=== PATIENT | female | born 1965 | race Caucasian/White ===

== ENCOUNTER 2023-04-13 08:10 | Outpatient (OUT) | payer OTHER, SELFPAY ==
[2023-04-13 08:31] LABS: Basophils Absolute Auto 0.1 10^3/uL (0.0-0.1); Basophils Percent Auto 0.9 % (0.2-2.0); Eosinophils Absolute Auto 0.2 10^3/uL (0.0-0.7); Eosinophils Percent Auto 1.9 % (0.9-7.0); Hematocrit 41.9 % (36.0-48.0); Hemoglobin 13.4 g/dL (12.0-16.0); Immature Granulocytes Abs Auto 0.03 10^3/uL (0.00-0.03); Immature Granulocytes Pct Auto 0.4 % (0.0-0.5); Lymphocytes Absolute Auto 2.3 10^3/uL (1.2-3.8); Lymphocytes Percent Auto 29.2 % (20.5-60.0); Mean Corpuscular Hemoglobin 27.9 pg (26.7-34.0); Mean Corpuscular Volume 87.1 fL (81.0-99.0); Mean Platelet Volume 9.8 fL (9.5-13.5); Monocytes Absolute Auto 0.4 10^3/uL (0.3-0.8); Monocytes Percent Auto 5.6 % (1.7-12.0); Neutrophils Absolute Auto 4.9 10^3/uL (1.4-6.5); Platelet Count 242 10^3/uL (150-450); Red Blood Count 4.81 10^6/uL (4.20-5.40); Red Cell Distribution Width 13.5 % (11.0-15.0); White Blood Count 7.9 10^3/uL (4.0-11.0)
[2023-04-13 09:07] LABS: Estimated Average Glucose 117 mg/dL; Glycohemoglobin A1C 5.7 % (4.5-6.2)
[2023-04-13 10:04] LABS: Alanine Aminotransferase 16 U/L (14-59); Albumin Globulin Ratio 0.9; Albumin Level 3.8 g/dL (3.4-5.0); Alkaline Phosphatase 130 U/L (46-116); Anion Gap 13.8; Aspartate Amino Transferase 11 U/L (15-37); BUN Creatinine Ratio 16.5; Bilirubin Total 0.4 mg/dL (0.2-1.0); Calcium 9.4 mg/dL (8.5-10.1); Carbon Dioxide 26.2 mmol/L (21.0-32.0); Chloride 105 mmol/L (98-107); Chol HDL Ratio 3.8; Cholesterol 165 mg/dL (<=200); Estimated GFR (African America >60 (>=60); Estimated GFR (Non-African Ame >60 (>=60); Free T3 2.77 pg/mL (2.18-3.98); Glucose 105 mg/dL (74-106); HDL Cholesterol 44 mg/dL (40-60); Sodium 141 mmol/L (136-145); Total Protein 7.8 g/dL (6.4-8.2); Triglycerides 186 mg/dL (<=150); VLDL CHOLESTEROL 37.2 mg/dL
[2023-04-15 12:08] LABS: Insulin 14.7 uIU/mL (2.6-24.9)
== END 2023-04-13 08:11 | disposition home or self-care (01) ==
LOC: LAB 08:13
PROVIDERS: PCP Family Medicine; Visit Provider Family Medicine
DX: Z00.00 Encounter for general adult medical examination without abnormal findings (principal); R73.09 Other abnormal glucose; Z12.12 Encounter for screening for malignant neoplasm of rectum; D64.9 Anemia, unspecified; E55.9 Vitamin D deficiency, unspecified
CPT/HCPCS: 36415; 80053; 80061; 83036; 83525; 83540; 84436; 84443; 84481; 85025

== ENCOUNTER 2023-04-23 15:41 | Outpatient (OUT) | payer OTHER, SELFPAY ==
--- NOTE | 2023-04-23 15:44 | MM_ITS ---
Patient Name: LORRAINE WILSON MR#: [id number] : 1965 Exam Date: 04/23/2023 Ordering Doctor: DR Bonilla Hankins . RADIOLOGY REPORT PROCEDURE: MM TOMOSYNTHESIS SCREENING BI COMPARISON: MG MAMM SCREEN 3D GOOD CAD, 04/13/2021. MG MAMM SCREEN 3D GOOD CAD, 04/17/2022. INDICATIONS: screening mamm Calculator Name NCI Breast Cancer Risk Assessment Tool 5 Year Breast Cancer Risk 1.10% Lifetime Breast Cancer Risk 6.30% Personal Breast Cancer No Personal Ovarian Cancer No Treatments None Family Cancers Grandfather-maternal with esophageal cancer at age 83. LOCATION: [facility] BREAST COMPOSITION: Heterogeneously dense,which may obscure small masses. FINDINGS: DIAGNOSTIC CATEGORY 1--NEGATIVE. NO CHANGE FROM COMPARISON ASSESSMENT. Scattered benign-appearing nodules are present. Scattered benign-appearing calcifications are present. Scattered benign-appearing lymph nodes are present. RIGHT BREAST: No significant suspicious finding. LEFT BREAST: No significant suspicious finding. RECOMMENDATIONS: ROUTINE MAMMOGRAM AND CLINICAL EVALUATION IN 12 MONTHS. PLEASE NOTE: A NORMAL MAMMOGRAM DOES NOT EXCLUDE THE POSSIBILITY OF BREAST CANCER. A CLINICALLY SUSPICIOUS PALPABLE LUMP SHOULD BE BIOPSIED. Dictated by: Yonatan Vick MD on 04/24/2023 at 09:26 Approved by: Yonatan Vick MD on 04/24/2023 at 09:28
--- OUTSIDE RECORDS SUMMARY | 2023-04-23 16:06 | XMS_ITS | CCD ---
Author Name Unknown Address [address] [place] [address] Organization [facility] Care Team Providers Care Wrist Closer Name Role Phone Jorge Hankins Primary Care Provider VERONICA LEONG Attending Unavailable RAULYJORGE Primary Care Unavailable VERONICA LEONG Admitting Unavailable HOY ., DR PATEL Attending Unavailable HOY ., DR PATEL Admitting Unavailable HOY ., DR PATEL Primary Care Unavailable HOY ., DR PATEL Consulting Unavailable HOY ., DR PATEL Attending Unavailable HOY ., DR PATEL Admitting Unavailable HOY ., DR PATEL Primary Care Unavailable HOY ., DR PATEL Admitting Unavailable HOY ., DR PATEL Primary Care Unavailable HOY ., DR PATEL Consulting Unavailable HOY ., DR PATEL Attending Unavailable WEST, DR JAZMINE Raphael Consulting Unavailable HOY ., DR PATEL Admitting Unavailable HOY ., DR PATEL Primary Care Unavailable HOY ., DR PATEL Consulting Unavailable HOY ., DR PATEL Attending Unavailable WEST, DR JAZMINE Raphael Consulting Unavailable ELIEZER GUEVARA Admitting Unavailable ELIEZER GUEVARA Attending Unavailable WEST, DR JAZMINE Raphael Consulting Unavailable HOY ., DR PATEL Primary Care Unavailable ELIEZER GUEVARA Consulting Unavailable ANURAG, NINFA Referring Unavailable ANURAG, NINFA Attending Unavailable Allergies Allergy Classification Reported Allergen(s) Allergy Type Date of Onset Reaction(s) Facility (4 sources) Cephalexin; Translations: [Unknown] Drug Allergy 5 [facility] (3 sources) Ciprofloxacin; Translations: [CIPROFLOXACIN] Drug Allergy 4 [facility] (1 source) Cephalexin Drug Allergy 5 [facility] [place] [facility] (1 source) Ciprofloxacin Drug Allergy 5 [facility] (1 source) Acetaminophen / oxyCODONE; Translations: [OXYCODONE-ACETAM INOPHEN] Drug Allergy 4 [facility] (1 source) RCA-MUOSPDMLE-BA- ACETAMINOPHEN; Translations: [CGN-FEWRONLGS-QN -ACETAMINOPHEN] Propensity to adverse reactions to drug (disorder) 5 [facility] (1 source) RXHVFOMYU-APY-GZ- ACETAMINOPHEN; Translations: [CPHBWCFPQ-NIH-JW -ACETAMINOPHEN] Propensity to adverse reactions to drug (disorder) 5 [facility] Medications Current Medications Medication Drug Class(es) Dates Sig (Normalized) Sig (Original) acetaminophen 500 mg oral tablet (1 source) Start: 10-09-2019 End: 10-29-2019 take 2 tablets by mouth every eight hours as needed acetaminophen (Tylenol Extra Strength) 500 MG tablet Take 2 (two) tablets (1,000 mg total) by mouth every 8 (eight) hours as needed for pain . 20 tablet 0 10/09/2019 10/29/2019 Active 12 hr buPROPion hydrochloride 200 mg extended release oral tablet (2 sources) Aminoketone take 1 tablet by mouth twice daily buPROPion (WELLBUTRIN SR) 200 MG 12 hr tablet Take 200 mg by mouth 2 (two) times a day . 0 Active ibuprofen 600 mg oral tablet (3 sources) Nonsteroidal Anti-inflammatory Drug Start: 10-09-2019 End: 10-24-2019 take 1 tablet by mouth every six hours as needed ibuprofen (ADVIL,MOTRIN) 600 MG tablet Take 1 (one) tablet (600 mg total) by mouth every 6 (six) hours as needed for pain . 15 tablet 0 10/09/2019 10/24/2019 Active levothyroxine sodium 0.15 mg oral tablet (2 sources) l-Thyroxine take 1 tablet by mouth once daily levothyroxine (Euthyrox) 150 MCG tablet Take 150 mcg by mouth once daily . 0 Active lisinopril 10 mg oral tablet (2 sources) Angiotensin Converting Enzyme Inhibitor lisinopriL (PRINIVIL,ZESTRIL) 10 MG tablet Take by mouth daily . 0 Active simvastatin 20 mg oral tablet (2 sources) HMG-CoA Reductase Inhibitor take 1 tablet by mouth once daily simvastatin (ZOCOR) 20 MG tablet Take 20 mg by mouth nightly . 0 Active topiramate 100 mg oral tablet (2 sources) take 1 tablet by mouth twice daily topiramate (TOPAMAX) 100 MG tablet Take 100 mg by mouth 2 (two) times a day . 0 Active Completed/Discontinued Medications Medication Drug Class(es) Dates Sig (Normalized) Sig (Original) acetaminophen 325 mg / oxyCODONE hydrochloride 5 mg oral tablet (3 sources) Opioid Agonist Start: 10-09-2019 End: 10-09-2019 oxyCODONE-acetamin ophen (PERCOCET) 5-325 mg per tablet 1 tablet take 1 tablet by martine th every six hours as needed oxyCODONE-acetaminophen (PERCOCET) 5-325 mg per tablet Take 1 tablet by mouth every 6 (six) hours as needed for pain . . 0 Active Problems Problem Classification Problem Date Documented Date Episodic/Chronic Abdominal pain (4 sources) Right upper quadrant pain; Translations: [RIGHT UPPER QUADRANT PAIN] Onset: 04-25-2022 Episodic Other connective tissue disease (4 sources) Plantar fascial fibromatosis; Translations: [PLANTAR FASCIAL FIBROMATOSIS] Onset: 04-19-2022 Episodic Other non-traumatic joint disorders (2 sources) Pain in left wrist; Translations: [Pain in left wrist] Onset: 09-20-2022 Episodic Other screening for suspected conditions (not mental disorders or infectious disease) (4 sources) Encounter for screening mammogram for malignant neoplasm of breast; Translations: [ENC SCR MAMMO MALIG NEOPLASM BREAST] Onset: 04-17-2022 Episodic Residual codes; unclassified (1 source) Family history of malignant neoplasm of digestive organs; Translations: [FAM HX MALIG NEOPLASM DIGESTIV ORGN] Onset: 04-22-2022 Episodic Spondylosis; intervertebral disc disorders; other back problems (4 sources) Unspecified thoracic, thoracolumbar and lumbosacral intervertebral disc disorder; Translations: [UNS THORACIC TL AND LS IV DISC D/O] Onset: 12-15-2021 Chronic Unclassified (1 source) Sprain of left ankle; Translations: [Sprain of left ankle, unspecified ligament, initial encounter] Results Test Name Value Interpretation Reference Range Facility Follow-Upon 09-20-2022 Follow-Up [id number] Tamara Saleh 1965 F Date Provider Department Center 09/20/2022 NINFA HERRERA MP ORTHO MPORTHO No family history on file Level of Service:70768 [place] OFFICE/OUTPATIENT ESTABLISHED LOW MDM 20-29 MIN (GC) Reason for Visit and Comments: Pain [136] Follow-up [328067] Normal [facility] AMYLASEon 04-25-2022 Amylase [Catalytic activity/Vol] 46 U/L Normal 25-115 [facility] Comment on above: Performed By: #### L IPA, KWADWO, LIPID ####[facility] [address] [place] [address]Dr. Charletteleticia Holly CBC AUTO DIFFon 04-25-2022 BASO # 0.1 103/ul Normal 0.0-0.1 [facility] Comment on above: Performed By: #### C BC ####[facility] [address] [place], [place] [address]Dr. Betina Holly Basophils/100 WBC (Bld) 0.7 % Normal 0.2-2.0 [facility] Comment on above: Performed By: #### C BC ####[facility] [address] [place], [place] [address]Dr. Betina Holly EO # 0.2 103/ul Normal 0.0-0.7 [facility] Comment on above: Performed By: #### C BC ####[facility] [address] [place], [place] [address]Dr. Betina Holly Eosinophils/100 WBC (Bld) 2.0 % Normal 0.9-7.0 [facility] Comment on above: Performed By: #### C BC ####[facility] [address] [place], [place] [address]Dr. Betina Holly Erythrocyte distribution width (RBC) [Ratio] 13.2 % Normal 11.0-15.0 [facility] Comment on above: Performed By: #### C BC ####[facility] [address] [place], [place] [address]Dr. Betina Holly Hematocrit (Bld) [Volume fraction] 42.6 % Normal 36.0-48.0 [facility] Comment on above: Performed By: #### C BC ####[facility] [address] [place] [id number]. Betina Holly Hemoglobin (Bld) [Mass/Vol] 13.6 g/dL Normal 12.0-16.0 [facility] Comment on above: Performed By: #### C BC ####[facility] [address] [place] [id number]. Betina Holly IG # 0.08 10e3/ul Critically high 0.00-0.03 [facility] Comment on above: Performed By: #### C BC ####[facility] [address] [place] [address]Dr. Betina Holly IG % 0.9 % Critically high 0.0-0.[address] [facility] Comment on above: Performed By: #### C BC ####[facility] [address] [place], [place] [address]Dr. Betina Holly LYMPH # 2.5 103/ul Normal 1.2-3.8 [facility] Comment on above: Performed By: #### C BC ####[facility] [address] [place] [address]Dr. Betina Holly Lymphocytes/100 WBC (Bld) 26.8 % Normal 20.5-60.0 [facility] Comment on above: Performed By: #### C BC ####[facility] [address] [place] [address]Dr. Betina Holly MANUAL DIFF REQ NO Normal [facility] Comment on above: Performed By: #### C BC ####[facility] [address] [place], [place] [id number]. Betina Holly MCH (RBC) [Entitic mass] 27.4 pg Normal 26.7-34.0 [facility] Comment on above: Performed By: #### C BC ####[facility] [address] [place] [address]Dr. Betina Holly MCHC (RBC) [Mass/Vol] 31.9 g/dL Normal 29.9-35.2 [facility] Comment on above: Performed By: #### C BC ####[facility] [address] [place] [phone]. Betina Holly MCV (RBC) [Entitic vol] 85.9 fL Normal 81.0-99.0 [facility] Comment on above: Performed By: #### C BC ####[facility] [address] [place] [phone]. Betina Holly MONO # 0.5 103/ul Normal 0.3-0.8 [facility] Comment on above: Performed By: #### C BC ####[facility] [address] [place], [place] [address]Dr. Betina Holly Monocytes/100 WBC (Bld) 5.7 % Normal 1.7-12.0 [facility] Comment on above: Performed By: #### C BC ####[facility] [address] [place], [place] [address]Dr. Betina Holly NEUT # 5.9 103/ul Normal 1.4-6.5 [facility] Comment on above: Performed By: #### C BC ####[facility] [address] [place], [place] [address]Dr. Betina Holly Neutrophils/100 WBC (Bld) 63.9 % Normal 43.0-75.0 [facility] Comment on above: Performed By: #### C BC ####[facility] [address] [place], [place] [address]Dr. Betina Holly Platelet mean volume (Bld) [Entitic vol] 9.8 fL Normal 9.5-13.5 [facility] Comment on above: Performed By: #### C BC ####[facility] [address] [place], [place] [address]Dr. Betina Holly PLT 273 103/ul Normal 150-450 [facility] Comment on above: Performed By: #### C BC ####[facility] [address] [place], [place] [address]Dr. Betina Holly RBC 4.96 106/ul Normal 4.20-5.40 [facility] Comment on above: Performed By: #### C BC ####[facility] [address] [place], [place] [address]Uj. Betina Holly WBC 9.2 103/ul Normal 4.0-11.0 [facility] Comment on above: Performed By: #### C BC ####[facility] [address] [place], [place] [address]Mm. Betina Holly LIPASEon 04-25-2022 Lipase [Catalytic activity/Vol] 71.0 U/L Critically low 73.0-393.0 [facility] Comment on above: Performed By: #### L KWADWO CARBAJAL, LIPID ####[facility] [address] [place] [phone]. Betina Holly LIPID PROFILEon 04-25-2022 CHOL-HDL RATIO NORM SEE BELOW Normal [facility] Comment on above: Result Comment: 3.3 - 4.4 LOW RISK 4.4 - 7.1 AVERAGE RISK 7.1 - 11.0 MODERATE RISK >11.0 HIGH RISK Performed By: #### L KWADWO CARBAJAL, LIPID ####[facility] [address] [place] [phone]. Betina Holly Cholesterol [Mass/Vol] 174 mg/dL Normal <=200 [facility] Comment on above: Performed By: #### L KWADWO CARBAJAL, LIPID ####[facility] [address] [place] [phone]. Betina Holly Cholesterol in HDL [Mass/Vol] 48 mg/dL Normal 40-60 [facility] Comment on above: Performed By: #### L KWADWO CARBAJAL, LIPID ####[facility] [address] [place] [phone]. Betina Holly Cholesterol in LDL [Mass/Vol] 101.2 mg/dL Normal [facility] Comment on above: Performed By: #### L KWADWO CARBAJAL, LIPID ####[facility] [address] [place] [phone]. Betina Holly Cholesterol.total/C holesterol in HDL [Mass ratio] 3.6 {ratio} Normal [facility] Comment on above: Performed By: #### L KWADWO CARBAJAL, LIPID ####[facility] [address] [place], [place] [address]Dg. Betina Holly HDL NORMAL > or = 60 mg/dl - LO W CARDIOVASCULAR RISK <40 mg/dl - HIGH CARDIOVASCULAR RISK Normal [facility] Comment on above: Performed By: #### L KWADWO CARBAJAL, LIPID ####[facility] [address] [place], [place] [address]Rg. Betina Holly LDL CALC NORMAL SEE BELOW Normal [facility] Comment on above: Result Comment: <100 mg/dl OPTIMAL 100 - 129 mg/dl NEAR OR ABOVE OPTIMAL 130 - 159 mg/dl BORDERLINE HIGH 160 - 189 mg/dl HIGH >190 mg/dl VERY HIGH Performed By: #### L KWADWO CARBAJAL, LIPID ####[facility] [address] [place] [phone]. Betina Holly Triglyceride [Mass/Vol] 124 mg/dL Normal <=150 [facility] Comment on above: Performed By: #### L KWADWO CARBAJAL, LIPID ####[facility] [address] [place] [phone]. Betina Holly VLDL CALC 24.8 mg/dL Normal [facility] Comment on above: Performed By: #### L KWADWO CARBAJAL, LIPID ####[facility] [address] [place] [phone]. Betina Holly US SINGLE QUAD RT UPPERon US SINGLE QUAD RT UPPER EXAMINATION: US SINGLE QUAD RT UPPER HISTORY: Right upper quadrant pain COMPARISON: No relevant comparison available. FINDINGS: The liver is normal in size, contour and echotexture with no focal mass. The liver measures 16.2 cm in length. Hepatopedal flow in the main portal vein with velocity of 36 cm/s The gallbladder is normal in size. The wall measures 2 mm, normal. Negative sonographic Leal sign. No cholelithiasis. The common bile duct measures 2.6 mm, normal. The visualized pancreas is normal The right kidney measures 10.8 x 5.0 x 5.0 cm. The cortex appears mildly thinned measuring 6 to 10 mm thick IMPRESSION: No acute abnormality Electronically authenticated by: JAZMINE TILLEY Date: 2022-04-25 11:05 Normal [facility] XR FOOT GOOD MIN 3 VIEWSon XR FOOT GOOD MIN 3 VIEWS EXAMINATION: XR FOOT GOOD MIN 3 VIEWS HISTORY: Pain in both feet COMPARISON: No relevant comparison available. FINDINGS: RIGHT FINDINGS: BONES: No acute fracture or dislocation. Moderate plantar enthesopathic spurring. Degenerative changes with joint space narrowing and marginal osteophyte formation most significant at the first metatarsal-phalangeal joint SOFT TISSUES: Negative. No visible soft tissue swelling. OTHER: Negative. LEFT FINDINGS: BONES: No acute fracture or dislocation. Moderate calcaneal enthesopathic spurring. Degenerative changes with joint space narrowing and marginal osteophyte formation most significant at the first metatarsal-phalangeal joint SOFT TISSUES: Negative. No visible soft tissue swelling. OTHER: Negative. IMPRESSION: RIGHT CONCLUSION: Degenerative changes most significant first metatarsal-phalangeal joint LEFT CONCLUSION: Degenerative changes most significant first metatarsal-phalangeal joint Electronically authenticated by: JAZMINE TILLEY Date: 2022-04-19 16:19 Normal [facility] MAMM SCREEN 3D GOOD CADon 04-17-2022 MG MAMM SCREEN 3D GOOD CAD Patient: LORRAINE SALEH Exam Date: 04/17/2022 : 1965 Gender:F Ordering : DR JORGE HANKINS . Admission #: [id number] Family : Order #: [id number] CLICK HERE TO VIEW EXAM RADIOLOGY REPORT PROCEDURE: MAMMOGRAM SCREENING 3D BILATERAL CAD COMPARISON: MG MAMM SCREEN GOOD W CAD, 03/29/2020. MG MAMM SCREEN 3D GOOD CAD, 04/13/2021. INDICATIONS: Screening mammography Calculator Name NCI Breast Cancer Risk Assessment Tool 5 Year Breast Cancer Risk 1.00% Lifetime Breast Cancer Risk 6.50% Personal Breast Cancer No Personal Ovarian Cancer No Treatments None Family Cancers Grandfather-maternal with esophageal cancer at age 83. LOCATION: [facility] BREAST COMPOSITION: Heterogeneously dense,which may obscure small masses. FINDINGS: DIAGNOSTIC CATEGORY 2--BENIGN FINDING. NO CHANGE FROM COMPARISON. Scattered benign-appearing nodules are present. Scattered benign-appearing calcifications are present. Scattered benign-appearing lymph nodes are present. RIGHT BREAST: No significant suspicious finding. LEFT BREAST: No significant suspicious finding. RECOMMENDATIONS: ROUTINE MAMMOGRAM AND CLINICAL EVALUATION IN 12 MONTHS. PLEASE NOTE: A NORMAL MAMMOGRAM DOES NOT EXCLUDE THE POSSIBILITY OF BREAST CANCER. A CLINICALLY SUSPICIOUS PALPABLE LUMP SHOULD BE BIOPSIED. Dictated by: Jazmine Tilley MD on 04/18/2022 at 08:30 Approved by: Jazmine Tilley MD on 04/18/2022 at 08:33 Normal [facility] INSULINon 04-02-2022 Insulin 13.7 uIU/mL Normal 2.6-24.9 [facility] Comment on above: Performed By: #### I NSULIN ####[facility] [address] [place] [address]Dr. Betina Holly CBC AUTO DIFFon 03-31-2022 BASO # 0.1 103/ul Normal 0.0-0.1 [facility] Comment on above: Performed By: #### C BC #### [facility] [address] [place] [address] Dr. Betina Holly Basophils/100 WBC (Bld) 0.7 % Normal 0.2-2.0 [facility] Comment on above: Performed By: #### C BC #### [facility] [address] [place] [address] Dr. Betina Holly EO # 0.1 103/ul Normal 0.0-0.7 [facility] Comment on above: Performed By: #### C BC #### [facility] [address] [place] [address] Dr. Betina Holly Eosinophils/100 WBC (Bld) 1.7 % Normal 0.9-7.0 [facility] Comment on above: Performed By: #### C BC #### [facility] [address] [place] [address] Dr. Betina Holly Erythrocyte distribution width (RBC) [Ratio] 13.3 % Normal 11.0-15.0 [facility] Comment on above: Performed By: #### C BC #### [facility] [address] [place] [address] Dr. Betina Holly Hematocrit (Bld) [Volume fraction] 40.5 % Normal 36.0-48.0 [facility] Comment on above: Performed By: #### C BC #### [facility] [address] [place] [address] Dr. Betina Holly Hemoglobin (Bld) [Mass/Vol] 13.1 g/dL Normal 12.0-16.0 [facility] Comment on above: Performed By: #### C BC #### [facility] [address] [place] [address] Dr. Betina Holly IG # 0.05 10e3/ul Critically high 0.00-0.03 [facility] Comment on above: Performed By: #### C BC #### [facility] [address] [place] [address] Dr. Betina Holly IG % 0.6 % Critically high 0.0-0.5 [facility] Comment on above: Performed By: #### C BC #### [facility] [address] [place] [address] Dr. Betina Holly LYMPH # 2.2 103/ul Normal 1.2-3.8 [facility] Comment on above: Performed By: #### C BC #### [facility] [address] [place] [address] Dr. Betina Holly Lymphocytes/100 WBC (Bld) 27.2 % Normal 20.5-60.0 [facility] Comment on above: Performed By: #### C BC #### [facility] [address] [place] [address] Dr. Betina Holly MANUAL DIFF REQ NO Normal [facility] Comment on above: Performed By: #### C BC #### [facility] [address] [place] [address] Dr. Betina Holly MCH (RBC) [Entitic mass] 28.1 pg Normal 26.7-34.0 [facility] Comment on above: Performed By: #### C BC #### [facility] [address] [place] [address] Dr. Betina Holly MCHC (RBC) [Mass/Vol] 32.3 g/dL Normal 29.9-35.2 [facility] Comment on above: Performed By: #### C BC #### [facility] [address] [place] [address] Dr. Betina Holly MCV (RBC) [Entitic vol] 86.7 fL Normal 81.0-99.0 [facility] Comment on above: Performed By: #### C BC #### [facility] [address] [place] [address] Dr. Betina Holly MONO # 0.5 103/ul Normal 0.3-0.8 [facility] Comment on above: Performed By: #### C BC #### [facility] [address] [place] [address] Dr. Betina Holly Monocytes/100 WBC (Bld) 6.0 % Normal 1.7-12.0 [facility] Comment on above: Performed By: #### C BC #### [facility] [address] [place] [address] Dr. Betina Holly NEUT # 5.2 103/ul Normal 1.4-6.5 [facility] Comment on above: Performed By: #### C BC #### [facility] [address] [place] [address] Dr. Betina Holly Neutrophils/100 WBC (Bld) 63.8 % Normal 43.0-75.0 [facility] Comment on above: Performed By: #### C BC #### [facility] [address] [place] [address] Dr. Betina Holly Platelet mean volume (Bld) [Entitic vol] 9.8 fL Normal 9.5-13.5 [facility] Comment on above: Performed By: #### C BC #### [facility] [address] [place] [address] Dr. Betina Holly PLT 226 103/ul Normal 150-450 [facility] Comment on above: Performed By: #### C BC #### [facility] [address] [place] [address] Dr. Betina Holly RBC 4.67 106/ul Normal 4.20-5.40 [facility] Comment on above: Performed By: #### C BC #### [facility] [address] [place] [address] Dr. Betina Holly WBC 8.2 103/ul Normal 4.0-11.0 [facility] Comment on above: Performed By: #### C BC #### [facility] [address] [place] [address] Dr. Betina Holly FREE THYROXINE INDEX T7on FTI 2.18 Normal 1.30-4.50 [facility] Comment on above: Performed By: #### C MP, LIPID, TSH, T7 #### [facility] [address] [place] [address] Dr. Betina Holly T3U 37.0 % Normal 30.0-39.0 [facility] Comment on above: Performed By: #### C MP, LIPID, TSH, T7 #### [facility] [address] [place] [address] Dr. Betina Holly T4 [Mass/Vol] 5.90 ug/dL Normal 4.80-13.90 [facility] Comment on above: Performed By: #### C MP, LIPID, TSH, T7 #### [facility] [address] [place] [address] Dr. Betina Holly GLYCOHEMOGLOBIN A1Con 2022 ADA RECOMMENDATION SEE BELOW Normal [facility] Comment on above: Result Comment: ADA RECOMMENDED LIMIT 4.0 - 6.0 ADA THERAPEUTIC TARGET < 7.0 ACTION SUGGESTED > 7.0 Performed By: #### A 1C #### [facility] [address] [place] [address] Dr. Betina Holly Glucose [Mass/Vol] 114 mg/dL Normal [facility] Comment on above: Performed By: #### A 1C #### [facility] [address] [place] [address] Dr. Betina Holly HbA1c (Bld) [Mass fraction] 5.6 % Normal 4.5-6.2 [facility] Comment on above: Performed By: #### A 1C #### [facility] [address] [place] [address] Dr. Betina Holly IRONon 03-31-2022 Iron [Mass/Vol] 72.0 ug/dL Normal 50.0-170.0 [facility] Comment on above: Performed By: #### I MARCE #### [facility] [address] [place], [place] [id number] Dr. Betina Holly LIPID PROFILEon 03-31-2022 CHOL-HDL RATIO NORM SEE BELOW Normal [facility] Comment on above: Result Comment: 3.3 - 4.4 LOW RISK 4.4 - 7.1 AVERAGE RISK 7.1 - 11.0 MODERATE RISK >11.0 HIGH RISK Performed By: #### C MP, LIPID, TSH, T7 #### [place] [facility] [address] [place] [address] Dr. Betina Holly Cholesterol [Mass/Vol] 167 mg/dL Normal <=200 [facility] Comment on above: Performed By: #### C MP, LIPID, TSH, T7 #### [facility] [address] [place] [address] Dr. Betina Holly Cholesterol in HDL [Mass/Vol] 43 mg/dL Normal 40-60 [facility] Comment on above: Performed By: #### C MP, LIPID, TSH, T7 #### [facility] [address] [place] [address] Dr. Betina Holly Cholesterol in LDL [Mass/Vol] 93.4 mg/dL Normal [facility] Comment on above: Performed By: #### C MP, LIPID, TSH, T7 #### [facility] [address] [place] [address] Dr. Betina Holly Cholesterol.total/C holesterol in HDL [Mass ratio] 3.9 {ratio} Normal [facility] Comment on above: Performed By: #### C MP, LIPID, TSH, T7 #### [facility] [address] [place] [address] Dr. Betina Holly HDL NORMAL > or = 60 mg/dl - LO W CARDIOVASCULAR RISK <40 mg/dl - HIGH CARDIOVASCULAR RISK Normal [facility] Comment on above: Performed By: #### C MP, LIPID, TSH, T7 #### [facility] [address] [place] [address] Dr. Betina Holly LDL CALC NORMAL SEE BELOW Normal [facility] Comment on above: Result Comment: <100 mg/dl OPTIMAL 100 - 129 mg/dl NEAR OR ABOVE OPTIMAL 130 - 159 mg/dl BORDERLINE HIGH 160 - 189 mg/dl HIGH >190 mg/dl VERY HIGH Performed By: #### C MP, LIPID, TSH, T7 #### [facility] [address] [address] [address] Betina Holly Triglyceride [Mass/Vol] 153 mg/dL Critically high <=150 [facility] Comment on above: Performed By: #### C MP, LIPID, TSH, T7 #### [facility] [address] [address] [address] Betina Holly VLDL CALC 30.6 mg/dL Normal [facility] Comment on above: Performed By: #### C MP, LIPID, TSH, T7 #### [facility] [address] [address] [address] Betina Holly PROF 14(COMP METB)on 023 Albumin [Mass/Vol] 3.9 g/dL Normal 3.4-5.0 [facility] Comment on above: Performed By: #### C MP, LIPID, TSH, T7 #### [facility] [address] [address] [address] Betina Holly Albumin/Globulin [Mass ratio] 1.1 {ratio} Normal [facility] Comment on above: Performed By: #### C MP, LIPID, TSH, T7 #### [facility] [address] [address] [address] Betina Holly ALP [Catalytic activity/Vol] 126 U/L Critically high 46-116 [facility] Comment on above: Performed By: #### C MP, LIPID, TSH, T7 #### [facility] [address] [address] [address] Betina oHlly ALT [Catalytic activity/Vol] 16 U/L Normal 14-59 [facility] Comment on above: Performed By: #### C MP, LIPID, TSH, T7 #### [facility] [address] [address] [address] Betina Holly Anion gap [Moles/Vol] 15.3 mmol/L Normal [facility] Comment on above: Performed By: #### C MP, LIPID, TSH, T7 #### [facility] [address] [place] [address] Dr. Betina Holly AST [Catalytic activity/Vol] 11 U/L Critically low 15-37 [facility] Comment on above: Performed By: #### C MP, LIPID, TSH, T7 #### [facility] [address] [address] [address] Betina Holly Bilirubin [Mass/Vol] 0.4 mg/dL Normal 0.2-1.0 [facility] Comment on above: Performed By: #### C MP, LIPID, TSH, T7 #### [facility] [address] [place] [address] Dr. Betina Holly Calcium [Mass/Vol] 9.4 mg/dL Normal 8.5-10.1 [facility] Comment on above: Performed By: #### C MP, LIPID, TSH, T7 #### [facility] [address] [place] [address] Dr. Betina Holly Chloride [Moles/Vol] 108 mmol/L Critically high 98-107 [facility] Comment on above: Performed By: #### C MP, LIPID, TSH, T7 #### [facility] [address] [address] [address] Betina Holly CO2 [Moles/Vol] 26.4 mmol/L Normal 21.0-32.0 [facility] Comment on above: Performed By: #### C MP, LIPID, TSH, T7 #### [facility] [address] [place] [address] Dr. Betina Holly Creatinine [Mass/Vol] 0.88 mg/dL Normal 0.55-1.02 [facility] Comment on above: Performed By: #### C MP, LIPID, TSH, T7 #### [facility] [address] [address] [address] Betina Holly EGFR-AF [place] ISLANDER >60 Normal >=60 [facility] Comment on above: Performed By: #### C MP, LIPID, TSH, T7 #### [facility] [address] [place] [address] Dr. Betina Holly EGFR-NON AF [place] ISLANDER >60 Normal >=60 [facility] Comment on above: Performed By: #### C MP, LIPID, TSH, T7 #### [facility] [address] [place] [address] Dr. Betina Holly Globulin (S) [Mass/Vol] 3.6 g/dL Normal [facility] Comment on above: Performed By: #### C MP, LIPID, TSH, T7 #### [facility] [address] [place] [address] Dr. Betina Holly Glucose [Mass/Vol] 105 mg/dL Normal 74-106 [facility] Comment on above: Performed By: #### C MP, LIPID, TSH, T7 #### [facility] [address] [place] [address] Dr. Betina Holly Potassium [Moles/Vol] 4.7 mmol/L Normal 3.5-5.1 [facility] Comment on above: Performed By: #### C MP, LIPID, TSH, T7 #### [facility] [address] [place] [address] Dr. Betina Holly Protein [Mass/Vol] 7.5 g/dL Normal 6.4-8.2 [facility] Comment on above: Performed By: #### C MP, LIPID, TSH, T7 #### [facility] [address] [place] [address] Dr. Betina Holly Sodium [Moles/Vol] 145 mmol/L Normal 136-145 [facility] Comment on above: Performed By: #### C MP, LIPID, TSH, T7 #### [facility] [address] [place] [address] Dr. Betina Holly Urea nitrogen [Mass/Vol] 15.0 mg/dL Normal 7.0-18.0 [facility] Comment on above: Performed By: #### C MP, LIPID, TSH, T7 #### [facility] [address] [place] [address] Dr. Betina Holly Urea nitrogen/Creatinine [Mass ratio] 17.0 mg/mg Normal [facility] Comment on above: Performed By: #### C MP, LIPID, TSH, T7 #### [facility] [address] [place] [address] Dr. Betina Holly TSHon 03-31-2022 TSH 1.079 uIU/mL Normal 0.358-3.740 [facility] Comment on above: Performed By: #### C MP, LIPID, TSH, T7 #### [facility] [address] [place], [place] [address] Dr. Betina Holly WRIST LEFT 3 VWSon 2 WRIST LEFT 3 VWS [facility] Department of Radiology [address] [place] [id number] ===== Patient Name: LORRAINE SALEH : 1965 Sex: F Age: Race: White Pt. Location: 83 Patient Status: O Ordered Date: 09/22/2021 12:55:00 PM Completed Date: 09/22/2021 01:40 PM Requesting Provider: LOUIS MURPHY Attending Provider: LOUIS MURPHY Report Copy To: Signs & Symptoms: M25.532 Pain in left wrist I10 History: Ana Comments: Exam: WRIST LEFT 3 VWS ===== WRIST LEFT 3 VWS 09/22/2021 1:42 PM CLINICAL INDICATIONS: M25.532 Pain in left wrist I10 TECHNOLOGIST COMMENTS: follow/up surgery 06/2020 to left wrist Patient has pain in wrist. QUESTION FOR THE RADIOLOGIST: PROTOCOL: AP,Lateral and Oblique views were obtained. COMPARISON: 09/16/2020 Impression: 1. Surgical hardware is stable. Alignment satisfactory. Fracture sites are stable. Electronically signed: Leanne Ferreira. Transcribed by: [email or web address], User Resident: Electronically Signed by: LEANNE FERREIRA @ 09/22/2021 03:03 PM Normal [facility] XR ANKLE LEFT 3+ VIEWS (JOSESITO DARD)on 10-10-2019 XR ANKLE LEFT 3+ VIEWS (STANDARD) EXAMINATION: XR ANKLE LEFT 3+ VIEWS (STANDARD) 10/09/2019 10:59 pm HISTORY: ORDERING SYSTEM PROVIDED HISTORY: pain, fall, TECHNOLOGIST PROVIDED HISTORY: Injury/Trauma Reason for exam: tripped and fell, best images possible due to pt mobility and pain Cancer History: na Surgery, RadiationHistory: na Encounter Type: Initial Mechanism of injury: na ORDERING SYSTEM PROVIDED DIAGNOSIS CODES: COMPARISON: No prior films TECHNIQUE: AP, lateral and oblique views FINDINGS: Bony alignment is normal. Talar dome is intact. There is no fracture or subluxation appreciated. There is some mild soft tissue swelling. IMPRESSION: 1. Mild soft tissue injury and swelling. 2. Normal ankle otherwise without fracture or traumatic change. Workstation ID: [id number] Dictated by: KAYODE HAYNES on SatOct 09, 2019 11:31:58 PM EDT Transcribed by: KAYODE HAYNES on SatOct 09, 2019 11:31:58 PM EDT Finalized by: KAYODE HAYNES on SatOct 09, 2019 11:31:58 PM EDT Normal [facility] Comment on above: Order Comment: Injur y/Trauma or Illness?:Injury/Trauma How long have you had these symptoms (acute/chronic)?:Acute Reason for exam?:tripped and fell, best images possible due to pt mobility and pain History of cancer?:na Surgeries, chemotherapy, or radiation?:na Type of Exam?:Initial Mechanism of injury?:na XR FOOT LEFT 3+ VIEWS (STAND AR)on 10-10-2019 XR FOOT LEFT 3+ VIEWS (STANDARD) EXAMINATION: XR FOOT LEFT 3+ VIEWS (STANDARD) 10/09/2019 10:59 pm HISTORY: ORDERING SYSTEM PROVIDED HISTORY: pain, fall, TECHNOLOGIST PROVIDED HISTORY: Injury/Trauma Reason for exam: tripped and fell left ankle pain Cancer History: na Surgery, RadiationHistory: na Encounter Type: Initial Mechanism of injury: fall ORDERING SYSTEM PROVIDED DIAGNOSIS CODES: COMPARISON: None. TECHNIQUE: AP, oblique and lateral projections of the left foot. FINDINGS: The toes are held in extension at the metatarsophalangeal level. I do not see any acute-appearing fracture or periosteal reaction. No dislocation or major degenerative change is seen. IMPRESSION: Negative-appearing left foot. [facility] Workstation ID: [id number] Dictated by: KAYODE HAYNES on SatOct 09, 2019 11:32:58 PM EDT Transcribed by: ADILENE HOBSON on SatOct 09, 2019 11:45:17 PM EDT Finalized by: KAYODE HAYNES on SatOct 09, 2019 11:55:01 PM EDT Normal [facility] Comment on above: Order Comment: Injur y/Trauma or Illness?:Injury/Trauma How long have you had these symptoms (acute/chronic)?:Acute Reason for exam?:tripped and fell left ankle pain History of cancer?:na Surgeries, chemotherapy, or radiation?:na Type of Exam?:Initial Mechanism of injury?:fall XR ANKLE LEFT 3+ VIEWS (JOSESITO JUDD)on 10-09-2019 1. Mild soft tissue injury and swelling. 2. Normal ankle otherwise without fracture or traumatic change. Workstation ID: [id number] [facility] EXAMINATION: XR ANKL E LEFT 3+ VIEWS (STANDARD) 10/09/2019 10:59 pm HISTORY: ORDERING SYSTEM PROVIDED HISTORY: pain, fall, TECHNOLOGIST PROVIDED HISTORY: Injury/Trauma Reason for exam: tripped and fell, best images possible due to pt mobility and pain Cancer History: na Surgery, RadiationHistory: na Encounter Type: Initial Mechanism of injury: na ORDERING SYSTEM PROVIDED DIAGNOSIS CODES: COMPARISON: No prior films TECHNIQUE: AP, lateral and oblique views FINDINGS: Bony alignment is normal. Talar dome is intact. There is no fracture or subluxation appreciated. There is some mild soft tissue swelling. [facility] Interface, Rad In Fu ji Speechq - 10/09/2019 11:34 PM EDT EXAMINATION: XR ANKLE LEFT 3+ VIEWS (STANDARD) 10/09/2019 10:59 pm HISTORY: ORDERING SYSTEM PROVIDED HISTORY: pain, fall, TECHNOLOGIST PROVIDED HISTORY: Injury/Trauma Reason for exam: tripped and fell, best images possible due to pt mobility and pain Cancer History: na Surgery, RadiationHistory: na Encounter Type: Initial Mechanism of injury: na ORDERING SYSTEM PROVIDED DIAGNOSIS CODES: COMPARISON: No prior films TECHNIQUE: AP, lateral and oblique views FINDINGS: Bony alignment is normal. Talar dome is intact. There is no fracture or subluxation appreciated. There is some mild soft tissue swelling. IMPRESSION: 1. Mild soft tissue injury and swelling. 2. Normal ankle otherwise without fracture or traumatic change. Workstation ID: [id number] [facility] XR FOOT LEFT 3+ VIEWS (STAND AR)on 10-09-2019 Negative-appearing l eft foot. [facility] Workstation ID: [id number] [facility] EXAMINATION: XR FOOT LEFT 3+ VIEWS (STANDARD) 10/09/2019 10:59 pm HISTORY: ORDERING SYSTEM PROVIDED HISTORY: pain, fall, TECHNOLOGIST PROVIDED HISTORY: Injury/Trauma Reason for exam: tripped and fell left ankle pain Cancer History: na Surgery, RadiationHistory: na Encounter Type: Initial Mechanism of injury: fall ORDERING SYSTEM PROVIDED DIAGNOSIS CODES: COMPARISON: None. TECHNIQUE: AP, oblique and lateral projections of the left foot. FINDINGS: The toes are held in extension at the metatarsophalangeal level. I do not see any acute-appearing fracture or periosteal reaction. No dislocation or major degenerative change is seen. [facility] Interface, Rad In Fu ji Speechq - 10/09/2019 11:57 PM EDT EXAMINATION: XR FOOT LEFT 3+ VIEWS (STANDARD) 10/09/2019 10:59 pm HISTORY: ORDERING SYSTEM PROVIDED HISTORY: pain, fall, TECHNOLOGIST PROVIDED HISTORY: Injury/Trauma Reason for exam: tripped and fell left ankle pain Cancer History: na Surgery, RadiationHistory: na Encounter Type: Initial Mechanism of injury: fall ORDERING SYSTEM PROVIDED DIAGNOSIS CODES: COMPARISON: None. TECHNIQUE: AP, oblique and lateral projections of the left foot. FINDINGS: The toes are held in extension at the metatarsophalangeal level. I do not see any acute-appearing fracture or periosteal reaction. No dislocation or major degenerative change is seen. IMPRESSION: Negative-appearing left foot. [facility] Workstation ID: [id number] [facility] XR Ankle 3+ Views Lefton XR Ankle 3+ Views Left Exam Date/Time: 09/06/2018 16:58 EDT Reason for Exam: Trauma Report STUDY: XR Ankle 3+ Views Left; 09/06/2018 4:58 pm INDICATION: Trauma. COMPARISON: None. ACCESSION NUMBER(S): [id number] ORDERING CLINICIAN: Selwyn Flynn FINDINGS: There is no fracture, effusion, joint space narrowing, or dislocation. There is mild lateral soft tissue swelling. There is no widening of the mortise. There is spurring of the plantar insertion on the calcaneus. IMPRESSION: No fracture Mild lateral ankle soft tissue swelling. FINAL REPORT Dictated: 09/06/2018 6:22 pm Shimon Nuñez MD Signed (Electronic Signature): 09/06/2018 6:22 pm Signed by: Shimon Nuñez MD Technologist: [facility] XR Tib/Fib Left 2 Viewon XR Tib/Fib Left 2 View Exam Date/Time: 09/06/2018 16:58 EDT Reason for Exam: Pain, Traumatic Report STUDY: XR Tib/Fib Left 2 View; 09/06/2018 4:58 pm INDICATION: Pain, Traumatic. COMPARISON: None. ACCESSION NUMBER(S): [id number] ORDERING CLINICIAN: Selwyn Flynn FINDINGS: There is no fracture, dislocation, joint space narrowing, or effusion. There is no significant soft tissue swelling. There is normal bony mineralization. IMPRESSION: No fracture FINAL REPORT Dictated: 09/06/2018 6:22 pm Shimon Nuñez MD Signed (Electronic Signature): 09/06/2018 6:22 pm Signed by: Shimon Nuñez MD Technologist: [facility] Vital Signs Date Time Vital Sign Value Performing Clinician Jian cabrera 10-09-2019 22:58-0400 Body Temperature 98.1 [degF] [facility] 10-09-2019 22:58-0400 BP Diastolic 89 mm[Hg] [facility] 10-09-2019 22:58-0400 BP Systolic 163 mm[Hg] [facility] 10-09-2019 22:58-0400 Pulse (Heart Rate) 86 /min [facility] 10-09-2019 22:58-0400 Pulse Oximetry 98 % [facility] 10-09-2019 22:58-0400 Respiratory Rate 18 /min [facility] 10-09-2019 22:53-0400 BMI (Body Mass Index) 41.02 kg/m2 Veronica Leong [facility] 10-09-2019 22:53-0400 Body weight 131.54 kg Veronica Leong [facility] 10-09-2019 22:53-0400 Height 179.1 cm Veronica Leong [facility] Encounters Encounter Date Encounter Type Care Provider Facility Start: 09-20-2022 End: 09-21-2022 ambulatory NINFA [facility] Start: 04-25-2022 End: 04-26-[address] JORGE HANKINS . Facility:[facility] Start: 04-19-2022 End: 04-20-2022 ambulatory ELIEZER GUEVARA Facility:[facility] Start: 04-17-2022 End: 04-18-[address] JORGE HANKINS . Facility:[facility] Start: 04-06-2022 Encounter for genera l adult medical examination without abnormal findings DR JORGE HANKINS . [facility] Start: 03-31-2022 End: 04-01-[address] JORGE HANKINS . Facility:[facility] Start: 03-31-2022 End: 04-01-2022 Encounter for general adult medical examination without abnormal findings DR JORGE HANKINS . Facility:[facility] Start: 12-15-2021 End: 01-18-[address] JORGE HANKINS . Facility:[facility] Start: 04-27-2020 End: 04-27-2020 Orders Only Anni Castro Work Phone: [facility] Start: 10-10-2019 End: 10-10-2019 [facility] Start: 10-09-2019 End: 10-10-2019 [facility] Work Phone: [facility] Emergency Department Comment on above: Sprain of left ankle , unspecified ligament, initial encounter (Primary Dx) Procedures Date Procedure Procedure Detail Performing Clinician Start: 10-09-2019 X-ray of left ankle Dewey zonena Guevaraa Work Phone: Start: 10-09-2019 X-ray of left adriana Leong Work Phone: Plan of Treatment Date Care Activity Detail Author Start: 10-20-2019 Influenza vaccination given Se quential Influenza Vaccine (#1) [facility] Start: 2014 Administration of he rpes zoster vaccine Zoster Vaccines (1 of 2) [facility] Start: 2014 Screening for malign ant neoplasm of colon [facility] Start: 1982 Hepatitis C antibody , confirmatory test Hepatitis C Screening [facility] Start: 1980 COVID-19 Vaccine (1 of 2) COVID-19 V accine (1 of 2) [facility] Start: 11-24-1979 HIV screening HIV Screening [facility] Start: 1976 Adolescent depressio n screening assessment Depression Screening (PHQ9) [facility] Start: 11-24-1967 History and physical examination, annual for health maintenance Wellness Visit [facility] Start: 1965 Screening for malign ant neoplasm of cervix Pap Smear [facility] Start: 1965 Screening mammography [facility] Start: 1964 Tetanus vaccination Tetanus: Every 1 0yrs [facility] Payers Date Payer Category Payer Unknown [facility] [id number] 2017-Present [id number] 2017 Unknown [id number] 2011 Unknown [id number] 1965 Unknown [id number] 1965 Unknown [id number] 3 1964 Unknown [id number] 3 1964 Unknown [id number] 3 1964 Unknown [id number] 3 1964 Unknown [id number] 3 1959 Unknown [id number] 1959 Unknown [id number] Social History Date Type Detail Facility Start: 10-09-2019 Tobacco smoking status NHIS Never sm oker [facility] Start: 10-09-2019 Tobacco use and exposure Never used [facility] Start: 10-09-2019 Alcohol intake Current drinke r of alcohol (finding) [facility] Start: 10-09-2019 Alcohol Comment social [facility] Sex Assigned At Not on file [facility] Exposure to SARS-CoV -2 (event) Not sure [facility] Progress note 09-20-2022 Note Date & Type Note Facility 09-20-2022 Note -------- Attestation signed by Ninfa Murphy MD at 09/21/2022 10:57 AM I personally saw and examined the patient on the same date of service as resident/fellow . I discussed the findings and therapeutic plan with the resident/fellow . I agree with the documentation, except for any edits/updates below. Teaching Physician's Revisions: -------- Orthopedic Surgery Subjective Pain and Follow-up of the Left Wrist 09/20/22 Lorraine Saleh is a RHD 56 y.o. year old female with work-related injury leading to L wrist 4-corner fusion (03/17/18) with de Quervain's tendinitis and ulnar impaction with ulnar shortening osteotomy (06/20/20). S/p Left wrist arthroscopy and TFCC debridement, left ulnar nerve decompression with triceps fascial sling (08/31/19). S/p left wrist dorsal capsulodesis (09/07/13). Discussed possible wrist fusion at last visit. Pt is doing well, working full-time without restrictions. She uses the brae and Tylenol for pain relief. Patient History No past surgical history on file. No past medical history on file. Allergies Allergen Reactions Ciprofloxacin Anaphylaxis and Other cant breathe Cephalexin Other reaction(s): Vomiting Nausea Oxycodone-Acetaminophen Other reaction(s): other Etu-Axgymxrbp-Md-Acetaminophen Rash Mizyhcbgl-Zdn-Pn-Acetaminophen Rash does fine with tylenol and sudafed alone - Current Outpatient Medications Medication Instructions buPROPion XL (Wellbutrin XL) 300 mg 24 hr tablet No dose, route, or frequency recorded. levothyroxine (Euthyrox) 150 mcg tablet 1 tablet, oral, Daily lisinopril 10 mg tablet 1 tablet, oral, Daily mirtazapine (Remeron) 30 mg tablet 1 tablet, oral, Nightly simvastatin (Zocor) 20 mg tablet No dose, route, or frequency recorded. topiramate (Topamax) 100 mg tablet No dose, route, or frequency recorded. Objective General: Body mass index is 39.46 kg/m???. No acute distress, comfortable Respiratory: Unlabored breathing on RA, no cough Cardiovascular: Warm well perfused extremities Psych: Appropriate mood behavior Left Hand: Inspection- no ecchymosis, no edema, no effusion Tender to palpation over dorsal aspect of wrist and overlying ulnar hardware ROM: wrist flexion 25 degrees, extension 30 degrees Sensation: intact over median, ulnar, and radial nerve distributions Cardiovascular: Well-perfused digits Imaging personally reviewed and our interpretation: XR L wrist obtained today shows prior 4 corner fusion, fused. Subchondral sclerosis and cystic changes of distal radius. Minimal progression of arthritic change from prior XR 09/22/21. Ulnar hardware remains intact. Assessment/Plan Lorraine Slaeh is a RHD 56 y.o. year old female with work-related injury in Dec 2010 leading to L wrist 4-corner fusion (03/17/18) with de Quervain's tendinitis and ulnar impaction with ulnar shortening osteotomy (06/20/20). S/p Left wrist arthroscopy and TFCC debridement, left ulnar nerve decompression with triceps fascial sling (08/31/19). S/p left wrist dorsal capsulodesis (09/07/13). Overall doing well. BWC. XR L wrist obtained today shows prior 4 corner fusion, fused. Subchondral sclerosis and cystic changes of distal radius. Minimal progression of arthritic change from prior XR 09/22/21. Ulnar hardware remains intact. -Discussed ulnar HWR today. Pt elected for conservative management at this time. -Discussed wrist fusion. Pt states pain is tolerable, she is working full-time without restrictions and arthritic changes on XR with minimal progression compared to last year. -FU one year with repeat XR L wrist. 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 * Ankle Sprain (French) documented in this encounter Assessments Diagnosis Sprain of left ankle, unspecified ligament, initial encounter- Primary Additional Source Comments INFORMATION SOURCE (unrecogn ized section and content) DATE CREATED AUTHOR 09/06/2018 [facility] DATE CREATED AUTHOR AUTHOR'S ORGANIZ ATION 10/15/2019 [facility] DATE CREATED AUTHOR AUTHOR'S ORGANIZ ATION 10/02/2021 [facility] DATE CREATED AUTHOR AUTHOR'S ORGANIZ ATION 04/29/2022 [facility] DATE CREATED AUTHOR AUTHOR'S ORGANIZ ATION 09/22/2022 [facility] Reason for Visit (unrecogniz ed section and content) Reason Comments Ankle Injury Veronica Leong MD - 10/09/2019 11:08 PM EDTCRosemary gomez RN - 10/09/2019 10:51 PM EDT ED Notes (unrecognized secti on and content) ED PROVIDER NOTE [facility] NAME: Lorraine Saleh AGE: 53 y.o. 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 Did not hit her head or neck. No LOC. Has not been able to ambulate due to pain. Unable to describe pain. Took ibuprofen 600 mg prior to arrival with no relief. Pain currently 30/10 . Past Medical History: Diagnosis Date Hyperlipidemia Hypertension Vocal cord paralysis with surgery, reports unable to be intubated d/t surgery Past Surgical History: Procedure Laterality Date EYE SURGERY x5 HYSTERECTOMY (CERVIX REMOVED) ORTHOPEDIC SURGERY carpal tunnel, multiple surgeries left wrist, arm History reviewed. No pertinent family history. Social History Socioeconomic History Marital status: Spouse name: Not on file Number of children: Not on file Years of education: Not on file Highest education level: Not on file Occupational History Not on file Social Needs Financial resource strain: Not on file Food insecurity Worry: Not on file Inability: Not on file Transportation needs Medical: Not on file Non-medical: Not on file Tobacco Use Smoking status: Never Smoker Smokeless tobacco: Never Used Substance and Sexual Activity Alcohol use: Yes Comment: social Drug use: Never Sexual activity: Not on file Lifestyle Physical activity Days per week: Not on file Minutes per session: Not on file Stress: Not on file Relationships Social connections Talks on phone: Not on file Gets together: Not on file Attends anabaptism service: Not on file Active member of club or organization: Not on file Attends meetings of clubs or organizations: Not on file Relationship status: Not on file Other Topics Concern Not on file Social History Narrative Not on file Previous Medications Medication Sig buPROPion (WELLBUTRIN SR) 200 MG 12 hr tablet Take 200 mg by mouth 2 (two) times a day . ibuprofen (ADVIL,MOTRIN) 600 MG tablet Take 600 mg by mouth every 6 (six) hours as needed for pain . levothyroxine (Euthyrox) 150 MCG tablet Take 150 mcg by mouth once daily . lisinopriL (PRINIVIL,ZESTRIL) 10 MG tablet Take by mouth daily . oxyCODONE-acetaminophen (PERCOCET) 5-325 mg per tablet Take 1 tablet by mouth every 6 (six) hours as needed for pain . . simvastatin (ZOCOR) 20 MG tablet Take 20 mg by mouth nightly . topiramate (TOPAMAX) 100 MG tablet Take 100 mg by mouth 2 (two) times a day . Allergies Allergen Reactions Cephalexin Nausea Ciprofloxacin cant breathe Review of Systems All other systems reviewed and are negative. Patient Vitals for the past 24 hrs: BP Temp Pulse Resp SpO2 Height Weight 10/09/19 2258 (!) 163/89 98.1 F (36.7 C) 86 18 98 % 10/09/19 2253 5' 10.5 131.5 kg (290 lb) Physical Exam Constitutional: General: She is not in acute distress. Appearance: She is not ill-appearing, toxic-appearing or diaphoretic. HENT: Head: Normocephalic. Mouth/Throat: Mouth: Mucous membranes are moist. Eyes: General: Right eye: No discharge. Left eye: No discharge. Cardiovascular: Rate and Rhythm: Normal rate and regular rhythm. Pulmonary: Effort: Pulmonary effort is normal. No respiratory distress. Musculoskeletal: General: No deformity. Comments: Left ankle: TTP left lateral malleolus and left foot. Minimal swelling to left ankle. 2+ pulses. Sensation intact. Muscle strength 5 out of 5 with flexion and extension of foot. Neurological: Mental Status: She is alert. Psychiatric: Mood and Affect: Mood normal. Behavior: Behavior normal. Thought Content: Thought content normal. Judgment: Judgment normal. Laboratory & Radiographic Imaging (if done): No results found for this visit on 10/09/19. XR Ankle Left 3+ Views (Standard) Final Result 1. Mild soft tissue injury and swelling. 2. Normal ankle otherwise without fracture or traumatic change. Workstation ID: [id number] XR Foot Left 3+ Views (Standard) Final Result Negative-appearing left foot. [facility] Workstation ID: [id number] Procedures MDM Number of Diagnoses or Management Options Sprain of left ankle, unspecified ligament, initial encounter: Diagnosis management comments: Patient with fall prior to arrival minimal swelling to the ankle. Suspect low-grade sprain. Recommended ice keep elevated and take Tylenol Motrin, patient says she also has some oxycodone at home from her procedure to her left elbow. Provided crutches as patient having pain with bearing weight. Patient is safe for discharge at this time as she is neurovascularly intact and anticipate gradual improvement with conservative care at home. . Clinical Impression: 1. Sprain of left ankle, unspecified ligament, initial encounter ED Disposition ED Disposition Condition Comment Discharge Stable Jolei Saleh discharged to home/self care in stable condition. Follow-up Information Follow-up information has not been specified. Contact information for after-discharge care Follow-up information has not been specified. New Prescriptions ibuprofen (ADVIL,MOTRIN) 600 MG tablet Take 1 (one) tablet (600 mg total) by mouth every 6 (six) hours as needed for pain . acetaminophen (Tylenol Extra Strength) 500 MG tablet Take 2 (two) tablets (1,000 mg total) by mouth every 8 (eight) hours as needed for pain . Veronica Leong MD 10/10/19 0029 Pt with fall on camper stairs, injured left ankle, denies other injuries , no head trauma documented in this encounter FOR RECORDS PERTAINING TO PATIENTS WHO ARE OR HAVE BEEN ENROLLED IN A CHEMICAL DEPENDENCY/SUBSTANCEABUSE PROGRAM, SOME INFORMATION MAY BE OMITTED. This clinical summary was aggregated from multiple sources. Caution should be exercised in using it in the provision of clinical care. This summary normalizes information from multiple sources, and as a consequence, information in this document may materially change the coding, format and clinical context of patient data. In addition, data may be omitted in some cases. CLINICAL DECISIONS SHOULD BE BASED ON THE PRIMARY CLINICAL RECORDS. [employer] provides no warranty or guarantee of the accuracy or completeness of information in this document.
== END 2023-04-23 15:42 | disposition home or self-care (01) ==
LOC: MAMMO 15:41
PROVIDERS: PCP Family Medicine; Visit Provider Family Medicine
DX: Z12.31 Encounter for screening mammogram for malignant neoplasm of breast (principal); Z80.8 Family history of malignant neoplasm of other organs or systems
CPT/HCPCS: 77063; 77067

== ENCOUNTER 2023-12-26 15:18 | Outpatient (OUT) | payer OTHER, SELFPAY ==
--- NOTE | 2023-12-26 15:20 | XR_ITS ---
The [address] [address] Patient Name: LORRAINE WILSON MRN: [facility]:[id number] date: 1965 Sex: F Assigned Patient Location: [facility] Current Patient Location: Accession/Order Number: [id number] Exam Date: 12/26/2023 15:20 Report Date: 12/30/2023 07:47 At the request of: RYLIE ROWE Procedure: XR foot GOOD min 3V EXAMINATION: XR foot GOOD min 3V HISTORY: Bilateral Foot Pain COMPARISON: No relevant comparison available. FINDINGS: RIGHT FINDINGS: BONES: No acute fracture or dislocation. Mild to moderate degenerative changes with joint space narrowing marginal osteophyte formation most significant first metatarsal-phalangeal joint. Enthesopathic spurring of the calcaneus SOFT TISSUES: Negative. No visible soft tissue swelling. OTHER: Negative. LEFT FINDINGS: BONES: No acute fracture or dislocation. Mild to moderate degenerative changes with joint space narrowing marginal osteophyte formation most significant second through fifth tarsometatarsal joints. Enthesopathic spurring of the calcaneus SOFT TISSUES: Negative. No visible soft tissue swelling. OTHER: Negative. 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
--- OUTSIDE RECORDS SUMMARY | 2023-12-26 15:36 | XMS_ITS | CCD ---
Author Organization [facility] Care Team Providers Care Fishing Captain Name Role Phone Jorge Hankins Primary Care Provider [phone] VERONICA LEONG Attending Unavailable RAULYJORGE Primary Care [...] Unavailable WEST, DR JAZMINE Raphael Consulting Unavailable ISMAEL, ELIEZER Admitting Unavailable ELIEZER GUEVARA Attending Unavailable WEST, DR JAZMINE Raphael Consulting Unavailable HOY ., DR PATEL Primary Care Unavailable ISMAEL, ELIEZER Consulting Unavailable ANURAG, NINFA Referring Unavailable ANURAG, NINFA Attending Unavailable Allergies Allergy Classification Reported Allergen(s) Allergy Type Date of Onset Reaction(s) Facility (4 sources) Cephalexin; Translations: [Unknown] Drug Allergy 5 [facility] (3 sources) Ciprofloxacin; Translations: [CIPROFLOXACIN] Drug Allergy 4 [facility] (1 source) Cephalexin Drug Allergy 5 [facility] (1 source) Ciprofloxacin Drug Allergy 5 [facility] (1 source) Acetaminophen / oxyCODONE; Translations: [OXYCODONE-ACETAM INOPHEN] Drug Allergy 4 [facility] (1 source) GLS-DFLBIELQK-JF- ACETAMINOPHEN; Translations: [IKC-NYUTMPMFI-NM -ACETAMINOPHEN] Propensity to adverse reactions to drug (disorder) 5 [facility] (1 source) DLONAKBRP-BBT-TR- ACETAMINOPHEN; Translations: [DUQPLRLGS-NLD-QI -ACETAMINOPHEN] Propensity to adverse reactions to drug (disorder) 5 [facility] Medications Current Medications Medication Drug [...] Interpretation Reference Range Facility Follow-Upon 09-20-2022 Follow-Up [id number] Tamara Saleh 1965 F Date Provider Department Center 09/20/2022 373-ANURAG, NINFA MP ORTHO MPORTHO No family history on file Level of Service:62464 LA OFFICE/OUTPATIENT ESTABLISHED LOW MDM 20-29 MIN () Reason for Visit and Comments: Pain [136] Follow-up [455593] Normal [facility] AMYLASEon 04-25-2022 Amylase [Catalytic activity/Vol] 46 U/L Normal 25-115 [facility] Comment on above: Performed By: #### L IPA, KWADWO, LIPID ####[facility] [address] [place] [address]Dr. Betina Holly CBC AUTO DIFFon 04-25-2022 BASO # 0.1 103/ul Normal 0.0-0.1 [facility] Comment on above: Performed By: #### C BC ####[facility] [address] [place], [place] [address]Dr. Betina Holly Basophils/100 WBC (Bld) 0.7 % Normal 0.2-2.0 [facility] Comment on above: Performed By: #### C BC ####[facility] [address] [place], [place] [address]Dr. Betina Holly EO # 0.2 103/ul Normal 0.0-0.7 [facility] Comment on above: Performed By: #### C BC ####[facility] [address] [place], [place] [address]Dr. Betina Holly Eosinophils/100 WBC (Bld) 2.0 % Normal 0.9-7.0 [facility] Comment on above: Performed By: #### C BC ####[facility] [address] [place], [place] [address]Dr. Betina Holly Erythrocyte distribution width (RBC) [Ratio] 13.2 % Normal 11.0-15.0 [facility] Comment on above: Performed By: #### C BC ####[facility] [address] [place], [place] [address]Dr. Betina Holly Hematocrit (Bld) [Volume fraction] 42.6 % Normal 36.0-48.0 [facility] Comment on above: Performed By: #### C BC ####[facility] [address] [place] [address]Dr. Betina Holly Hemoglobin (Bld) [Mass/Vol] 13.6 g/dL Normal 12.0-16.0 [facility] Comment on above: Performed By: #### C BC ####[facility] [address] [place] [address]Dr. Betina Holly IG # 0.08 10e3/ul Critically high 0.00-0.03 [facility] Comment on above: Performed By: #### C BC ####[facility] [address] [place] [address]Dr. Betina Holly IG % 0.9 % Critically high 0.0-0.5 [facility] Comment on above: Performed By: #### C BC ####[facility] [address] [place] [address]Dr. Betina Holly LYMPH # 2.5 103/ul Normal 1.2-3.8 [facility] Comment on above: Performed By: #### C BC ####[facility] [address] [place] [address]Dr. Betina Holly Lymphocytes/100 WBC (Bld) 26.8 % Normal 20.5-60.0 [facility] Comment on above: Performed By: #### C BC ####[facility] [address] [place] [address]Dr. Beitna Holly MANUAL DIFF REQ NO Normal [facility] Comment on above: Performed By: #### C BC ####[facility] [address] [place] [address]Dr. Betina Holly MCH (RBC) [Entitic mass] 27.4 pg Normal 26.7-34.0 [facility] Comment on above: Performed By: #### C BC ####[facility] [address] [place] [address]Dr. Betina Holly MCHC (RBC) [Mass/Vol] 31.9 g/dL Normal 29.9-35.2 [facility] Comment on above: Performed By: #### C BC ####[facility] [address] [place], [place] [address]Dr. Betina Holly MCV (RBC) [Entitic vol] 85.9 fL Normal 81.0-99.0 [facility] Comment on above: Performed By: #### C BC ####[facility] [address] [place] [id number]. Betina Holly MONO # 0.5 103/ul Normal 0.3-0.8 [facility] Comment on above: Performed By: #### C BC ####[facility] [address] [place] [address]Dr. Betina Avni Monocytes/100 WBC (Bld) 5.7 % Normal 1.7-12.0 [facility] Comment on above: Performed By: #### C BC ####[facility] [address] [place] [address]Dr. Betina Holly NEUT # 5.9 103/ul Normal 1.4-6.5 [facility] Comment on above: Performed By: #### C BC ####[facility] [address] [place] [address]Dr. Betina Avni Neutrophils/100 WBC (Bld) 63.9 % Normal 43.0-75.0 [facility] Comment on above: Performed By: #### C BC ####[facility] [address] [place] [address]Dr. Betina Avni Platelet mean volume (Bld) [Entitic vol] 9.8 fL Normal 9.5-13.5 [facility] Comment on above: Performed By: #### C BC ####[facility] [address] [place] [address]Dr. Betina Avni PLT 273 103/ul Normal 150-450 [facility] Comment on above: Performed By: #### C BC ####[facility] [address] [place] [id number]. Betina Avni RBC 4.96 106/ul Normal 4.20-5.40 [facility] Comment on above: Performed By: #### C BC ####[facility] [address] [place] [address]Dr. Betina Holly WBC 9.2 103/ul Normal 4.0-11.0 [facility] Comment on above: Performed By: #### C BC ####[facility] [address] [place] [id number]. Betina Holly LIPASEon 04-25-2022 Lipase [Catalytic activity/Vol] 71.0 U/L Critically low 73.0-393.0 [facility] Comment on above: Performed By: #### L KWADWO CARBAJAL, LIPID ####[facility] [address] [place] [id number]. Betina Holly LIPID PROFILEon 04-25-2022 CHOL-HDL RATIO NORM SEE BELOW Normal [facility] Comment on above: Result Comment: 3.3 - 4.4 LOW RISK 4.4 - 7.1 AVERAGE RISK 7.1 - 11.0 MODERATE RISK >11.0 HIGH RISK Performed By: #### L SOLOMON KWADWO, LIPID ####[facility] [address] [place] [address]Dr. Betina Holly Cholesterol [Mass/Vol] 174 mg/dL Normal <=200 [facility] Comment on above: Performed By: #### L KWADWO CARBAJAL, LIPID ####[facility] [address] [place] [address]Dr. Betina Holly Cholesterol in HDL [Mass/Vol] 48 mg/dL Normal 40-60 [facility] Comment on above: Performed By: #### L KWADWO CARBAJAL, LIPID ####[facility] [address] [place] [address]Dr. Betina Holly Cholesterol in LDL [Mass/Vol] 101.2 mg/dL Normal [facility] Comment on above: Performed By: #### L SOLOMON KWADWO, LIPID ####[facility] [address] [place] [address]Dr. Betina Holly Cholesterol.total/C holesterol in HDL [Mass ratio] 3.6 {ratio} Normal [facility] Comment on above: Performed By: #### L IPA KWADWO, LIPID ####[facility] [address] [place] [id number]. Betina Holly HDL NORMAL > or = 60 mg/dl - LO W CARDIOVASCULAR RISK <40 mg/dl - HIGH CARDIOVASCULAR RISK Normal [facility] Comment on above: Performed By: #### L KWADWO CARBAJAL, LIPID ####[facility] [address] [place], [place] [address]Ml. Betina Holly LDL CALC NORMAL SEE BELOW Normal [facility] Comment on above: Result Comment: <100 mg/dl OPTIMAL 100 - 129 mg/dl NEAR OR ABOVE OPTIMAL 130 - 159 mg/dl BORDERLINE HIGH 160 - 189 mg/dl HIGH >190 mg/dl VERY HIGH Performed By: #### L KWADWO CARBAJAL, LIPID ####[facility] [address] [place], [place] [address]Gt. Charletteleticia Holly Triglyceride [Mass/Vol] 124 mg/dL Normal <=150 [facility] Comment on above: Performed By: #### L KWADWO CARBAJAL, LIPID ####[facility] [address] [place], [place] [address]Kl. Betina Holly VLDL CALC 24.8 mg/dL Normal [facility] Comment on above: Performed By: #### L KWADWO CARBAJAL, LIPID ####[facility] [address] [place], [place] [address]Qt. Betina Holly US SINGLE QUAD RT UPPERon [...] JAZMINE TILLEY Date: 2022-04-25 11:05 Normal [facility] XR FOOT GOOD MIN 3 VIEWSon [...] JAZMINE TILLEY Date: 2022-04-19 16:19 Normal [facility] MAMM SCREEN 3D GOOD CADon 04-17-2022 MG MAMM SCREEN 3D GOOD CAD Patient: LORRAINE SALEH Exam Date: 04/17/2022 : 1965 Gender:F Ordering : DR JORGE HANKINS . Admission #: [id number] Family : Order #: [id number] CLICK HERE TO VIEW EXAM RADIOLOGY REPORT [...] esophageal cancer at age 82. LOCATION: [facility] BREAST COMPOSITION: Heterogeneously dense,which may obscure [...] MD on 04/18/2022 at 08:33 Normal [facility] INSULINon 04-02-2022 Insulin 13.7 uIU/mL Normal 2.6-24.9 [facility] Comment on above: Performed By: #### I NSULIN ####[facility] [address] [place], [place] [address]YmDr. Betina Holly CBC AUTO DIFFon 03-31-2022 BASO # 0.1 103/ul Normal 0.0-0.1 [facility] Comment on above: Performed By: #### C BC #### [facility] [address] [address] [address] Betina Holly Basophils/100 WBC (Bld) 0.7 % Normal 0.2-2.0 [facility] Comment on above: Performed By: #### C BC #### [facility] [address] [address] [address] Betina Holly EO # 0.1 103/ul Normal 0.0-0.7 [facility] Comment on above: Performed By: #### C BC #### [facility] [address] [address] [address] Betina Holly Eosinophils/100 WBC (Bld) 1.7 % Normal 0.9-7.0 [facility] Comment on above: Performed By: #### C BC #### [facility] [address] [address] [address] Betina Holly Erythrocyte distribution width (RBC) [Ratio] 13.3 % Normal 11.0-15.0 [facility] Comment on above: Performed By: #### C BC #### [facility] [address] [address] [address] Betina Holly Hematocrit (Bld) [Volume fraction] 40.5 % Normal 36.0-48.0 [facility] Comment on above: Performed By: #### C BC #### [facility] [address] [address] [address] Betina Holly Hemoglobin (Bld) [Mass/Vol] 13.1 g/dL Normal 12.0-16.0 [facility] Comment on above: Performed By: #### C BC #### [facility] [address] [address] [address] Betina Holly IG # 0.05 10e3/ul Critically high 0.00-0.03 [facility] Comment on above: Performed By: #### C BC #### [facility] [address] [place] [address] Dr. Betina Holly IG % 0.6 % Critically high 0.0-0.5 [facility] Comment on above: Performed By: #### C BC #### [facility] [address] [place] [address] Dr. Betina Holly LYMPH # 2.2 103/ul Normal 1.2-3.8 [facility] Comment on above: Performed By: #### C BC #### [facility] [address] [place] [address] Dr. Betina Holly Lymphocytes/100 WBC (Bld) 27.2 % Normal 20.5-60.0 [facility] Comment on above: Performed By: #### C BC #### [facility] [address] [place] [address] Dr. Betina Holly MANUAL DIFF REQ NO Normal [facility] Comment on above: Performed By: #### C BC #### [facility] [address] [place] [address] Dr. Betina Holly MCH (RBC) [Entitic mass] 28.1 pg Normal 26.7-34.0 [facility] Comment on above: Performed By: #### C BC #### [facility] [address] [place] [address] Dr. Betina Holly MCHC (RBC) [Mass/Vol] 32.3 g/dL Normal 29.9-35.2 [facility] Comment on above: Performed By: #### C BC #### [facility] [address] [place] [address] Dr. Betina Holly MCV (RBC) [Entitic vol] 86.7 fL Normal 81.0-99.0 [facility] Comment on above: Performed By: #### C BC #### [facility] [address] [place] [address] Dr. Betina Holly MONO # 0.5 103/ul Normal 0.3-0.8 [facility] Comment on above: Performed By: #### C BC #### [facility] [address] [place] [address] Dr. Betina Holly Monocytes/100 WBC (Bld) 6.0 % Normal 1.7-12.0 [facility] Comment on above: Performed By: #### C BC #### [facility] [address] [place] [address] Dr. Betina Holly NEUT # 5.2 103/ul Normal 1.4-6.5 [facility] Comment on above: Performed By: #### C BC #### [facility] [address] [place] [address] Dr. Betina Holly Neutrophils/100 WBC (Bld) 63.8 % Normal 43.0-75.0 [facility] Comment on above: Performed By: #### C BC #### [facility] [address] [place] [address] Dr. Betina Holly Platelet mean volume (Bld) [Entitic vol] 9.8 fL Normal 9.5-13.5 [facility] Comment on above: Performed By: #### C BC #### [facility] [address] [place] [address] Dr. Betina Holly PLT 226 103/ul Normal 150-450 [facility] Comment on above: Performed By: #### C BC #### [facility] [address] [place] [address] Dr. Betina Holly RBC 4.67 106/ul Normal 4.20-5.40 [facility] Comment on above: Performed By: #### C BC #### [facility] [address] [place] [address] Dr. Betina Holly WBC 8.2 103/ul Normal 4.0-11.0 [facility] Comment on above: Performed By: #### C BC #### [facility] [address] [place] [address] Dr. Betina Holly FREE THYROXINE INDEX T7on FTI 2.18 Normal 1.30-4.50 [facility] Comment on above: Performed By: #### C MP, LIPID, TSH, T7 #### [facility] [address] [address] [address] Betina Holly T3U 37.0 % Normal 30.0-39.0 [facility] Comment on above: Performed By: #### C MP, LIPID, TSH, T7 #### [facility] [address] [address] [address] Betina Holly T4 [Mass/Vol] 5.90 ug/dL Normal 4.80-13.90 [facility] Comment on above: Performed By: #### C MP, LIPID, TSH, T7 #### [facility] [address] [address] [address] Betina Holly GLYCOHEMOGLOBIN A1Con 2022 ADA RECOMMENDATION SEE BELOW Normal [facility] Comment on above: Result Comment: ADA RECOMMENDED LIMIT 4.0 - 6.0 ADA THERAPEUTIC TARGET < 7.0 ACTION SUGGESTED > 7.0 Performed By: #### A 1C #### [facility] [address] [address] [address] Betina Holly Glucose [Mass/Vol] 114 mg/dL Normal [facility] Comment on above: Performed By: #### A 1C #### [facility] [address] [address] [address] Betina Holly HbA1c (Bld) [Mass fraction] 5.6 % Normal 4.5-6.2 [facility] Comment on above: Performed By: #### A 1C #### [facility] [address] [address] [address] Betina Holly IRONon 03-31-2022 Iron [Mass/Vol] 72.0 ug/dL Normal 50.0-170.0 [facility] Comment on above: Performed By: #### I MARCE #### [facility] [address] [address] [address] Betina Holly LIPID PROFILEon 03-31-2022 CHOL-HDL RATIO NORM SEE BELOW Normal [facility] Comment on above: Result Comment: 3.3 - 4.4 LOW RISK 4.4 - 7.1 AVERAGE RISK 7.1 - 11.0 MODERATE RISK >11.0 HIGH RISK Performed By: #### C MP, LIPID, TSH, T7 #### [facility] [address] [address] [address] Betina Holly Cholesterol [Mass/Vol] 167 mg/dL Normal <=200 [facility] Comment on above: Performed By: #### C MP, LIPID, TSH, T7 #### [facility] [address] [address] [address] Betina Holly Cholesterol in HDL [Mass/Vol] 43 mg/dL Normal 40-60 [facility] Comment on above: Performed By: #### C MP, LIPID, TSH, T7 #### [facility] [address] [address] [address] Betina Holly Cholesterol in LDL [Mass/Vol] 93.4 mg/dL Normal [facility] Comment on above: Performed By: #### C MP, LIPID, TSH, T7 #### [facility] [address] [address] [address] Betina Holly Cholesterol.total/C holesterol in HDL [Mass ratio] 3.9 {ratio} Normal [facility] Comment on above: Performed By: #### C MP, LIPID, TSH, T7 #### [facility] [address] [address] [address] Betina Holly HDL NORMAL > or = 60 mg/dl - LO W CARDIOVASCULAR RISK <40 mg/dl - HIGH CARDIOVASCULAR RISK Normal [facility] Comment on above: Performed By: #### C MP, LIPID, TSH, T7 #### [facility] [address] [address] [address] Betina Holly LDL CALC NORMAL SEE BELOW Normal [facility] Comment on above: Result Comment: <100 mg/dl OPTIMAL 100 - 129 mg/dl NEAR OR ABOVE OPTIMAL 130 - 159 mg/dl BORDERLINE HIGH 160 - 189 mg/dl HIGH >190 mg/dl VERY HIGH Performed By: #### C MP, LIPID, TSH, T7 #### [facility] [address] [address] [address] Betina Holly Triglyceride [Mass/Vol] 153 mg/dL Critically high <=150 [facility] Comment on above: Performed By: #### C MP, LIPID, TSH, T7 #### [facility] [address] [address] [address] Betina Holly VLDL CALC 30.6 mg/dL Normal [facility] Comment on above: Performed By: #### C MP, LIPID, TSH, T7 #### [facility] [address] [address] [address] Betina Holly PROF 14(COMP METB)on 023 Albumin [Mass/Vol] 3.9 g/dL Normal 3.4-5.0 [facility] Comment on above: Performed By: #### C MP, LIPID, TSH, T7 #### [facility] [address] [address] [address] Betina Holly Albumin/Globulin [Mass ratio] 1.1 {ratio} Normal [facility] Comment on above: Performed By: #### C MP, LIPID, TSH, T7 #### [facility] [address] [address] [address] Betina Holly ALP [Catalytic activity/Vol] 126 U/L Critically high 46-116 [facility] Comment on above: Performed By: #### C MP, LIPID, TSH, T7 #### [facility] [address] [address] [address] Betina Holly ALT [Catalytic activity/Vol] 16 U/L Normal 14-59 [facility] Comment on above: Performed By: #### C MP, LIPID, TSH, T7 #### [facility] [address] [address] [address] Betina Holly Anion gap [Moles/Vol] 15.3 mmol/L Normal [facility] Comment on above: Performed By: #### C MP, LIPID, TSH, T7 #### [facility] [address] [address] [address] Betina Holly AST [Catalytic activity/Vol] 11 U/L Critically low 15-37 [facility] Comment on above: Performed By: #### C MP, LIPID, TSH, T7 #### [facility] [address] [place] [address] Dr. Betina Holly Bilirubin [Mass/Vol] 0.4 mg/dL Normal 0.2-1.0 [facility] Comment on above: Performed By: #### C MP, LIPID, TSH, T7 #### [facility] [address] [place] [address] Dr. Betina Holly Calcium [Mass/Vol] 9.4 mg/dL Normal 8.5-10.1 [facility] Comment on above: Performed By: #### C MP, LIPID, TSH, T7 #### [facility] [address] [place] [address] Dr. Betina Holly Chloride [Moles/Vol] 108 mmol/L Critically high 98-107 [facility] Comment on above: Performed By: #### C MP, LIPID, TSH, T7 #### [facility] [address] [place] [address] Dr. Betina Holly CO2 [Moles/Vol] 26.4 mmol/L Normal 21.0-32.0 [facility] Comment on above: Performed By: #### C MP, LIPID, TSH, T7 #### [facility] [address] [place] [address] Dr. Betina Holly Creatinine [Mass/Vol] 0.88 mg/dL Normal 0.55-1.02 [facility] Comment on above: Performed By: #### C MP, LIPID, TSH, T7 #### [facility] [address] [place] [address] Dr. Betina Holly EGFR-AF BRITISH >60 Normal >=60 [facility] Comment on above: Performed By: #### C MP, LIPID, TSH, T7 #### [facility] [address] [place] [address] Dr. Betina Holly EGFR-NON AF BRITISH >60 Normal >=60 [facility] Comment on above: Performed By: #### C MP, LIPID, TSH, T7 #### [facility] [address] [address] [address] Betina Holly Globulin (S) [Mass/Vol] 3.6 g/dL Normal [facility] Comment on above: Performed By: #### C MP, LIPID, TSH, T7 #### [facility] [address] [address] [address] Betina Holly Glucose [Mass/Vol] 105 mg/dL Normal 74-[address] [facility] Comment on above: Performed By: #### C MP, LIPID, TSH, T7 #### [facility] [address] [address] [address] Betina Holly Potassium [Moles/Vol] 4.7 mmol/L Normal 3.5-5.1 [facility] Comment on above: Performed By: #### C MP, LIPID, TSH, T7 #### [facility] [address] [place] [address] Dr. Betina Holly Protein [Mass/Vol] 7.5 g/dL Normal 6.4-8.[address] [facility] Comment on above: Performed By: #### C MP, LIPID, TSH, T7 #### [facility] [address] [address] [address] Betina Holly Sodium [Moles/Vol] 145 mmol/L Normal 136-[address] [facility] Comment on above: Performed By: #### C MP, LIPID, TSH, T7 #### [facility] [address] [address] [address] Betina Holly Urea nitrogen [Mass/Vol] 15.0 mg/dL Normal 7.0-18.0 [facility] Comment on above: Performed By: #### C MP, LIPID, TSH, T7 #### [facility] [address] [address] [address] Betina Holly Urea nitrogen/Creatinine [Mass ratio] 17.0 mg/mg Normal [facility] Comment on above: Performed By: #### C MP, LIPID, TSH, T7 #### [facility] [address] [place] [address] Dr. Betina Holly TSHon 03-31-2022 TSH 1.079 uIU/mL Normal 0.358-3.740 [facility] [facility] Comment on above: Performed By: #### C MP, LIPID, TSH, T7 #### [facility] [address], [place] [address] Dr. Betina Holly WRIST LEFT 3 VWSon 2 WRIST LEFT 3 VWS [facility] Department of Radiology [address] [place] [id number] ===== Patient Name: LORRAINE SALEH : 1965 Sex: F Age: Race: White Pt. Location: Patient Status: O Ordered Date: 09/22/2021 12:55:00 [...] stable. Electronically signed: Leanne Ferreira. Transcribed by: [email or web address], User Resident: Electronically Signed by: LEANNE FERREIRA @ 09/22/2021 03:03 PM Normal [facility] XR ANKLE LEFT 3+ VIEWS (JOSESITO [...] traumatic change. Workstation ID: [id number] Dictated by: KAYDOE HAYNES on SatOct 09, 2019 11:31:58 PM EDT Transcribed by: KAYODE HAYNES on SatOct 09, 2019 11:31:58 PM EDT Finalized by: KAYODE HAYNES on SatOct 09, 2019 11:31:58 PM EDT Normal [facility] Comment on above: Order Comment: Injur y/Trauma [...] change is seen. IMPRESSION: Negative-appearing left foot. [facility] Workstation ID: [id number] Dictated by: KAYODE HAYNES on SatOct 09, 2019 11:32:58 PM EDT Transcribed by: ADILENE HOBSON on SatOct 09, 2019 11:45:17 PM EDT Finalized by: KAYODE HAYNES on SatOct 09, 2019 11:55:01 PM EDT Normal [facility] Comment on above: Order Comment: Injur y/Trauma [...] fracture or traumatic change. Workstation ID: [id number] [facility] EXAMINATION: XR ANKL E LEFT 3+ VIEWS [...] There is some mild soft tissue swelling. [facility] Interface, Rad In Fu ji Speechq - [...] fracture or traumatic change. Workstation ID: [id number] [facility] XR FOOT LEFT 3+ VIEWS (STAND AR)on 10-09-2019 Negative-appearing l eft foot. [facility] Workstation ID: [id number] [facility] EXAMINATION: XR FOOT LEFT 3+ VIEWS (STANDARD) [...] dislocation or major degenerative change is seen. [facility], Rad In Fu ji Speechq - 10/09/2019 [...] change is seen. IMPRESSION: Negative-appearing left foot. [facility]/[employer] Workstation ID: [id number] [facility] XR Ankle 3+ Views Lefton XR Ankle 3+ Views Left Exam Date/Time: 09/06/2018 16:58 EDT Reason for Exam: Trauma Report STUDY: XR Ankle 3+ Views Left; 09/06/2018 4:58 pm INDICATION: Trauma. COMPARISON: None. ACCESSION NUMBER(S): [id number] ORDERING CLINICIAN: Selwyn Flynn FINDINGS: There is [...] pm Signed by: Shimon Nuñez MD Technologist: [facility] XR Tib/Fib Left 2 Viewon XR Tib/Fib Left 2 View Exam Date/Time: 09/06/2018 16:58 EDT Reason for Exam: Pain, Traumatic Report STUDY: XR Tib/Fib Left 2 View; 09/06/2018 4:58 pm INDICATION: Pain, Traumatic. COMPARISON: None. ACCESSION NUMBER(S): [id number] ORDERING CLINICIAN: Selwyn Flynn FINDINGS: There is no fracture, dislocation, joint space narrowing, or effusion. There is no significant soft tissue swelling. There is normal bony mineralization. IMPRESSION: No fracture FINAL REPORT Dictated: 09/06/2018 6:22 pm Shimon Nuñez MD Signed (Electronic Signature): 09/06/2018 6:22 pm Signed by: Shimon Nuñez MD Technologist: [facility] Vital Signs Date Time Vital Sign Value Performing Clinician Marco Antonioi deborah 10-09-2019 22:58-0400 Body Temperature 98.1 [degF] [facility] 10-09-2019 22:58-0400 BP Diastolic 89 mm[Hg] [facility] 10-09-2019 22:58-0400 BP Systolic 163 mm[Hg] [facility] 10-09-2019 22:58-0400 Pulse (Heart Rate) 86 /min [facility] 10-09-2019 22:58-0400 Pulse Oximetry 98 % [facility] 10-09-2019 22:58-0400 Respiratory Rate 18 /min [facility] 10-09-2019 22:53-0400 BMI (Body Mass Index) 41.02 kg/m2 Veronica Leong [facility] 10-09-2019 22:53-0400 [facility] 10-09-2019 22:53-0400 Height 179.1 cm [facility] Encounters Encounter Date Encounter Type Care Provider Facility Start: 09-20-2022 End: 09-21-2022 ambulatory [facility] Start: 04-25-2022 End: 04-26-[address] JORGE HANKINS . Facility:[facility] Start: 04-19-2022 End: 04-20-2022 ambulatory ELIEZERSPARKLE GUEVARA Facility:[facility] Start: 04-17-2022 End: 04-18-[address] JORGE HANKINS . Facility:[facility] Start: 04-06-2022 Encounter for genera l adult medical examination without abnormal findings DR JORGE HANKINS . [facility] Start: 03-31-2022 End: 04-01-[address] JORGE HANKINS . Facility:[facility] Start: 03-31-2022 End: 04-01-2022 Encounter for general adult medical examination without abnormal findings DR JORGE HANKINS . Facility:[facility] Start: 12-15-2021 End: 01-18-[address] JORGE HANKINS . Facility:[facility] Start: 04-27-2020 End: 04-27-2020 Orders Only Anni Castro Work Phone: [facility] Start: 10-10-2019 End: 10-10-2019 Emergency department patient visit [facility] Start: 10-09-2019 End: 10-10-2019 [facility] Work Phone: [facility] Emergency Department Comment on above: Sprain of left ankle , unspecified ligament, initial encounter (Primary Dx) Procedures Date Procedure Procedure Detail Performing Clinician Start: 10-09-2019 X-ray of left ankle Dewey Leong Work Phone: Start: 10-09-2019 X-ray of left foot Con guan Dang Work Phone: Plan of Treatment Date Care Activity Detail Author Start: 10-20-2019 Influenza vaccination given Se quential Influenza Vaccine (#1) [facility] Start: 2014 Administration of he rpes zoster vaccine Zoster Vaccines (1 of 2) [facility] Start: 2014 Screening for malign ant neoplasm of colon [facility] Start: 1982 Hepatitis C antibody , confirmatory test Hepatitis C Screening [facility] Start: 1980 COVID-19 Vaccine (1 of 2) COVID-19 V accine (1 of 2) [facility] Start: 11-24-1979 HIV screening HIV Screening [facility] Start: 1976 Adolescent depressio n screening assessment Depression Screening (PHQ9) [facility] Start: 11-24-1967 History and physical examination, annual for health maintenance Wellness Visit [facility] Start: 1965 Screening for malign ant neoplasm of cervix Pap Smear [facility] Start: 1965 Screening mammography [facility] Start: 1964 Tetanus vaccination Tetanus: Every 1 0yrs [facility] Payers Date Payer Category Payer Unknown [facility] [employer] [facility] [employer] [id number] 2017-Present [id number] 2017 Unknown [id number] 2011 Unknown [id number] 1965 Unknown [id number] 0 1965 Unknown [id number] 3 1964 Unknown [id number] 3 1964 Unknown [id number] 3 1964 Unknown [id number] 3 1965 Unknown [id number] 3 1959 Unknown [id number] 1959 Unknown [id number] Social History Date Type Detail Facility Start: 10-09-2019 Tobacco smoking status NHIS Never sm oker [facility] Start: 10-09-2019 Tobacco use and exposure Never used [facility] Start: 10-09-2019 Alcohol intake Current drinke r of alcohol (finding) [facility] Start: 10-09-2019 Alcohol Comment social [facility] Sex Assigned At Not on file [facility] Exposure to SARS-CoV -2 (event) Not sure [facility] Progress note 09-20-2022 Note Date & Type [...] and Follow-up of the Left Wrist 09/20/22 Lorraien Saleh is a RHD 56 y.o. year [...] reaction(s): Vomiting Nausea Oxycodone-Acetaminophen Other reaction(s): other Bre-Rftknosbm-Zj-Acetaminophen Rash Vrnfbbloc-Jrh-Mj-Acetaminophen Rash does fine with tylenol and sudafed [...] 09/22/21. Ulnar hardware remains intact. Assessment/Plan Lorraine Saleh is a RHD 56 y.o. year old female with work-related injury in Dec 2010 leading to L wrist 4-corner fusion (03/17/18) with de Quervain's tendinitis and ulnar impaction with ulnar shortening osteotomy (06/20/20). S/p Left wrist arthroscopy and TFCC debridement, left ulnar nerve decompression with triceps fascial sling (08/31/19). S/p left wrist dorsal capsulodesis (09/07/13). Overall doing well. [facility]. 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 * Ankle Sprain (Icelandic) documented in this encounter Assessments Diagnosis Sprain of left ankle, unspecified ligament, initial encounter- Primary Additional Source Comments INFORMATION SOURCE (unrecogn ized section and content) DATE CREATED AUTHOR 09/06/2018 [facility] DATE CREATED AUTHOR AUTHOR'S ORGANIZ ATION 10/15/2019 [facility] DATE CREATED AUTHOR AUTHOR'S ORGANIZ ATION 10/02/2021 [facility] DATE CREATED AUTHOR AUTHOR'S ORGANIZ ATION 04/29/2022 [facility] DATE CREATED AUTHOR AUTHOR'S ORGANIZ ATION 09/22/2022 [facility] Reason for Visit (unrecogniz ed section and content) Reason Comments Ankle Injury Veronica Leong MD - 10/09/2019 11:08 PM EDTCRosemary gomez RN - 10/09/2019 10:51 PM EDT ED Notes (unrecognized secti on and content) ED PROVIDER NOTE [facility] NAME: Lorraine Saleh AGE: 53 y.o. 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 Was coming out of her 3 [...] file Gets together: Not on file Attends jainism service: Not on file Active member of [...] Views (Standard) Final Result Negative-appearing left foot. [facility] Workstation ID: [id number] Procedures MDM Number of [...] Disposition ED Disposition Condition Comment Discharge Stable Jolie Saleh discharged to home/self care in stable [...] BE BASED ON THE PRIMARY CLINICAL RECORDS. [employer] provides no warranty or guarantee of the accuracy or completeness of information in this document.
== END 2023-12-26 15:19 | disposition home or self-care (01) ==
LOC: RAD 15:18
PROVIDERS: PCP Family Medicine; Visit Provider Podiatrist Foot & Ankle Surgery
DX: M79.671 Pain in right foot (principal); M19.072 Primary osteoarthritis, left ankle and foot; M19.071 Primary osteoarthritis, right ankle and foot
CPT/HCPCS: 73630

== ENCOUNTER 2024-01-29 15:22 | Outpatient (RCR) | payer OTHER, SELFPAY | END 2024-02-18 14:48 | disposition home or self-care (01) | LOC: PT 15:22 | PROVIDERS: PCP Family Medicine; Visit Provider Physician Assistant | DX: M72.2 Plantar fascial fibromatosis (principal) | CPT/HCPCS: 97110; 97140; 97162 ==

== ENCOUNTER 2024-02-19 11:00 | Outpatient (RCR) | payer OTHER, SELFPAY | END 2024-02-20 13:14 | disposition home or self-care (01) | LOC: PT 11:00 | PROVIDERS: PCP Family Medicine; Visit Provider Physician Assistant | DX: M72.2 Plantar fascial fibromatosis (principal) ==

== ENCOUNTER 2024-04-18 07:38 | Outpatient (OUT) | payer OTHER, SELFPAY ==
--- OUTSIDE RECORDS SUMMARY | 2024-04-18 07:43 | XMS_ITS | CCD ---
Author Organization [facility] Care Team Providers Care Radio Operator Name Role Phone Jorge Hankins Primary Care Provider [phone] VERONICA LEONG Attending Unavailable RAULYJORGE Primary Care [...] sources) Cephalexin; Translations: [Unknown] Drug Allergy 5 [facility] (3 sources) Ciprofloxacin; Translations: [CIPROFLOXACIN] Drug Allergy 4 [facility] (1 source) Cephalexin Drug Allergy 5 [facility] (1 source) Ciprofloxacin Drug Allergy 5 [facility] (1 source) Acetaminophen / oxyCODONE; Translations: [OXYCODONE-ACETAM INOPHEN] Drug Allergy [address] [facility] Repository (1 source) ZKE-QCUPYEZKT-NV- ACETAMINOPHEN; Translations: [HZH-XXAJBFJUU-EE -ACETAMINOPHEN] Propensity to adverse reactions to drug (disorder) [address] [facility] (1 source) NXZYRHHDX-RMN-YV- ACETAMINOPHEN; Translations: [HUXZKCZNJ-VDF-GC -ACETAMINOPHEN] Propensity to adverse reactions to drug (disorder) [address] [facility] Repository Medications Current Medications Medication Drug Class(es) [...] Interpretation Reference Range Facility Follow-Upon 09-20-2022 Follow-Up [id number] Tamara Saleh 1965 F Date Provider Department Center 09/20/2022 [id number], NINFA MP ORTHO MPORTHO No family history on file Level of Service:56158 [place] OFFICE/OUTPATIENT ESTABLISHED LOW MDM 20-29 MIN () Reason for Visit and Comments: Pain [136] Follow-up [705669] Normal [facility] AMYLASEon 04-25-2022 Amylase [Catalytic activity/Vol] 46 U/L Normal 25-115 [facility] Comment on above: Performed By: #### L IPA, KWADWO, LIPID ####[facility] [address] [place] [address]Dr. Betina Holly CBC AUTO DIFFon 04-25-2022 BASO # 0.1 103/ul Normal 0.0-0.1 [facility] Comment on above: Performed By: #### C BC ####[facility] [address] [place], [place] [address]Dr. Betina Holly Basophils/100 WBC (Bld) 0.7 % Normal 0.2-2.0 [facility] Comment on above: Performed By: #### C BC ####[facility] [address] [place], [place] [address]Dr. Betina Holly EO # 0.2 103/ul Normal 0.0-0.7 [facility] Comment on above: Performed By: #### C BC ####[facility] [address] [place], [place] [address]Dr. Betina Holly Eosinophils/100 WBC (Bld) 2.0 % Normal 0.9-7.0 [facility] Comment on above: Performed By: #### C BC ####[facility] [address] [place], [place] [address]Dr. Betina Holly Erythrocyte distribution width (RBC) [Ratio] 13.2 % Normal 11.0-15.0 [facility] Comment on above: Performed By: #### C BC ####[facility] [address] [place], [place] [address]Dr. Betina Holly Hematocrit (Bld) [Volume fraction] 42.6 % Normal 36.0-48.0 [facility] Comment on above: Performed By: #### C BC ####[facility] [address] [place] [address]Dr. Betina Holly Hemoglobin (Bld) [Mass/Vol] 13.6 g/dL Normal 12.0-16.0 [facility] Comment on above: Performed By: #### C BC ####[facility] [address] [place] [address]Dr. Betina Holly IG # 0.08 10e3/ul Critically high 0.00-0.03 [facility] Comment on above: Performed By: #### C BC ####[facility] [address] [place] [address]Dr. Betina Holly IG % 0.9 % Critically high 0.0-0.5 [facility] Comment on above: Performed By: #### C BC ####[facility] [address] [place] [address]Dr. Betina Holly LYMPH # 2.5 103/ul Normal 1.2-3.8 [facility] Comment on above: Performed By: #### C BC ####[facility] [address] [place] [address]Dr. Betina Holly Lymphocytes/100 WBC (Bld) 26.8 % Normal 20.5-60.0 [facility] Comment on above: Performed By: #### C BC ####[facility] [address] [place] [address]Dr. Betina Holly MANUAL DIFF REQ NO Normal [facility] Comment on above: Performed By: #### C BC ####[facility] [address] [place] [address]Dr. Betina Holly MCH (RBC) [Entitic mass] 27.4 pg Normal 26.7-34.0 [facility] Comment on above: Performed By: #### C BC ####[facility] [address] [place] [address]Dr. Betina Holly MCHC (RBC) [Mass/Vol] 31.9 g/dL Normal 29.9-35.2 [facility] Comment on above: Performed By: #### C BC ####[facility] [address] [place], [place] [address]Dr. Betina Holly MCV (RBC) [Entitic vol] 85.9 fL Normal 81.0-99.0 [facility] Comment on above: Performed By: #### C BC ####[facility] [address] [place] [id number]. Betina Holly MONO # 0.5 103/ul Normal 0.3-0.8 [facility] Comment on above: Performed By: #### C BC ####[facility] [address] [place] [address]Dr. Betina Avni Monocytes/100 WBC (Bld) 5.7 % Normal 1.7-12.0 [facility] Comment on above: Performed By: #### C BC ####[facility] [address] [place] [address]Dr. Betina Holly NEUT # 5.9 103/ul Normal 1.4-6.5 [facility] Comment on above: Performed By: #### C BC ####[facility] [address] [place] [address]Dr. Betina Avni Neutrophils/100 WBC (Bld) 63.9 % Normal 43.0-75.0 [facility] Comment on above: Performed By: #### C BC ####[facility] [address] [place] [address]Dr. Betina Avni Platelet mean volume (Bld) [Entitic vol] 9.8 fL Normal 9.5-13.5 [facility] Comment on above: Performed By: #### C BC ####[facility] [address] [place] [address]Dr. Betina Avni PLT 273 103/ul Normal 150-450 [facility] Comment on above: Performed By: #### C BC ####[facility] [address] [place] [id number]. Betina Avni RBC 4.96 106/ul Normal 4.20-5.40 [facility] Comment on above: Performed By: #### C BC ####[facility] [address] [place] [address]Dr. Betina Holly WBC 9.2 103/ul Normal 4.0-11.0 [facility] Comment on above: Performed By: #### C BC ####[facility] [address] [place] [id number]. Betina Holly LIPASEon 04-25-2022 Lipase [Catalytic activity/Vol] 71.0 U/L Critically low 73.0-393.0 [facility] Comment on above: Performed By: #### L KWADWO CARBAJAL, LIPID ####[facility] [address] [place] [id number]. Betina Holly LIPID PROFILEon 04-25-2022 CHOL-HDL RATIO NORM SEE BELOW Normal [facility] Comment on above: Result Comment: 3.3 - 4.4 LOW RISK 4.4 - 7.1 AVERAGE RISK 7.1 - 11.0 MODERATE RISK >11.0 HIGH RISK Performed By: #### L SOLOMON KWADWO, LIPID ####[facility] [address] [place] [address]Dr. Betina Holly Cholesterol [Mass/Vol] 174 mg/dL Normal <=200 [facility] Comment on above: Performed By: #### L KWADWO CARBAJAL, LIPID ####[facility] [address] [place] [address]Dr. Betina Holly Cholesterol in HDL [Mass/Vol] 48 mg/dL Normal 40-60 [facility] Comment on above: Performed By: #### L KWADWO CARBAJAL, LIPID ####[facility] [address] [place] [address]Dr. Betina Holly Cholesterol in LDL [Mass/Vol] 101.2 mg/dL Normal [facility] Comment on above: Performed By: #### L SOLOMON KWADWO, LIPID ####[facility] [address] [place] [address]Dr. Betina Holly Cholesterol.total/C holesterol in HDL [Mass ratio] 3.6 {ratio} Normal [facility] Comment on above: Performed By: #### L IPA KWADWO, LIPID ####[facility] [address] [place] [id number]. Betina Holly HDL NORMAL > or = 60 mg/dl - LO W CARDIOVASCULAR RISK <40 mg/dl - HIGH CARDIOVASCULAR RISK Normal [facility] Comment on above: Performed By: #### L KWADWO CARBAJAL, LIPID ####[facility] [address] [place], [place] [address]Ea. Betina Holly LDL CALC NORMAL SEE BELOW Normal [facility] Comment on above: Result Comment: <100 mg/dl OPTIMAL 100 - 129 mg/dl NEAR OR ABOVE OPTIMAL 130 - 159 mg/dl BORDERLINE HIGH 160 - 189 mg/dl HIGH >190 mg/dl VERY HIGH Performed By: #### L KWADWO CARBAJAL, LIPID ####[facility] [address] [place], [place] [address]Wm. Charletteleticia Holly Triglyceride [Mass/Vol] 124 mg/dL Normal <=150 [facility] Comment on above: Performed By: #### L KWADWO CARBAJAL, LIPID ####[facility] [address] [place], [place] [address]Mp. Betina Holly VLDL CALC 24.8 mg/dL Normal [facility] Comment on above: Performed By: #### L KWADWO CARBAJAL, LIPID ####[facility] [address] [place], [place] [address]Ws. Betina Holly US SINGLE QUAD RT UPPERon [...] JAZMINE TILLEY Date: 2022-04-25 11:05 Normal [facility] XR FOOT GOOD MIN 3 VIEWSon [...] JAZMINE TILLEY Date: 2022-04-19 16:19 Normal [facility] MAMM SCREEN 3D GOOD CADon 04-17-2022 MG MAMM SCREEN 3D GOOD CAD Patient: LORRAINE SALEH Exam Date: 04/17/2022 : 1965 Gender:F Ordering : DR JORGE HANKINS . Admission #: [id number] Family : Order #: [id number] CLICK HERE TO VIEW EXAM RADIOLOGY REPORT [...] esophageal cancer at age 82. LOCATION: [facility] BREAST COMPOSITION: Heterogeneously dense,which may obscure [...] MD on 04/18/2022 at 08:33 Normal [facility] INSULINon 04-02-2022 Insulin 13.7 uIU/mL Normal 2.6-24.9 [facility] Comment on above: Performed By: #### I NSULIN ####[facility] [address] [place], [place] [address]Dr. Betina Holly CBC AUTO DIFFon 03-31-2022 BASO # 0.1 103/ul Normal 0.0-0.1 [facility] Comment on above: Performed By: #### C BC #### [facility] [address] [place] [address] [address] Betina Holly Basophils/100 WBC (Bld) 0.7 % Normal 0.2-2.0 [facility] Comment on above: Performed By: #### C BC #### [facility] [address] [place] [address] [address] Betina Holyl EO # 0.1 103/ul Normal 0.0-0.7 [facility] Comment on above: Performed By: #### C BC #### [facility] [address] [place] [address] [address] Betina Holly Eosinophils/100 WBC (Bld) 1.7 % Normal 0.9-7.0 [facility] Comment on above: Performed By: #### C BC #### [facility] [address] [place] [address] [address] Betina Holly Erythrocyte distribution width (RBC) [Ratio] 13.3 % Normal 11.0-15.0 [facility] Comment on above: Performed By: #### C BC #### [facility] [address] [place] [address] [address] Betina Holly Hematocrit (Bld) [Volume fraction] 40.5 % Normal 36.0-48.0 [facility] Comment on above: Performed By: #### C BC #### [facility] [address] [place] [address] [address] Betina Holly Hemoglobin (Bld) [Mass/Vol] 13.1 g/dL Normal 12.0-16.0 [facility] Comment on above: Performed By: #### C BC #### [facility] [address] [place] [address] [address] Betina Holly IG # 0.05 10e3/ul Critically high 0.00-0.03 [facility] Comment on above: Performed By: #### C BC #### [facility] [address] [place] [address] Dr. Betina Holly IG % 0.6 % Critically high 0.0-0.5 [facility] Comment on above: Performed By: #### C BC #### [facility] [address] [place] [address] Dr. Betina Holly LYMPH # 2.2 103/ul Normal 1.2-3.8 [facility] Comment on above: Performed By: #### C BC #### [facility] [address] [place] [address] Dr. Betina Holly Lymphocytes/100 WBC (Bld) 27.2 % Normal 20.5-60.0 [facility] Comment on above: Performed By: #### C BC #### [facility] [address] [place] [address] Dr. Betina Holly MANUAL DIFF REQ NO Normal [facility] Comment on above: Performed By: #### C BC #### [facility] [address] [place] [address] Dr. Betina Holly MCH (RBC) [Entitic mass] 28.1 pg Normal 26.7-34.0 [facility] Comment on above: Performed By: #### C BC #### [facility] [address] [place] [address] Dr. Betina Holly MCHC (RBC) [Mass/Vol] 32.3 g/dL Normal 29.9-35.2 [facility] Comment on above: Performed By: #### C BC #### [facility] [address] [place] [address] Dr. Betina Holly MCV (RBC) [Entitic vol] 86.7 fL Normal 81.0-99.0 [facility] Comment on above: Performed By: #### C BC #### [facility] [address] [place] [address] Dr. Betina Holly MONO # 0.5 103/ul Normal 0.3-0.8 [facility] Comment on above: Performed By: #### C BC #### [facility] [address] [place] [address] Dr. Betina Holly Monocytes/100 WBC (Bld) 6.0 % Normal 1.7-12.0 [facility] Comment on above: Performed By: #### C BC #### [facility] [address] [place] [address] Dr. Betina Holly NEUT # 5.2 103/ul Normal 1.4-6.5 [facility] Comment on above: Performed By: #### C BC #### [facility] [address] [place] [address] Dr. Betina Holly Neutrophils/100 WBC (Bld) 63.8 % Normal 43.0-75.0 [facility] Comment on above: Performed By: #### C BC #### [facility] [address] [place] [address] Dr. Betina Holly Platelet mean volume (Bld) [Entitic vol] 9.8 fL Normal 9.5-13.5 [facility] Comment on above: Performed By: #### C BC #### [facility] [address] [place] [address] Dr. Betina Holly PLT 226 103/ul Normal 150-450 [facility] Comment on above: Performed By: #### C BC #### [facility] [address] [place] [address] Dr. Betina Holly RBC 4.67 106/ul Normal 4.20-5.40 [facility] Comment on above: Performed By: #### C BC #### [facility] [address] [place] [address] Dr. Betina Holly WBC 8.2 103/ul Normal 4.0-11.0 [facility] Comment on above: Performed By: #### C BC #### [facility] [address] [place] [address] Dr. Betina Holly FREE THYROXINE INDEX T7on FTI 2.18 Normal 1.30-4.50 [facility] Comment on above: Performed By: #### C MP, LIPID, TSH, T7 #### [facility] [address] [place] [address] [address] Betina Holly T3U 37.0 % Normal 30.0-39.0 [facility] Comment on above: Performed By: #### C MP, LIPID, TSH, T7 #### [facility] [address] [place] [address] [address] Betina Holly T4 [Mass/Vol] 5.90 ug/dL Normal 4.80-13.90 [facility] Comment on above: Performed By: #### C MP, LIPID, TSH, T7 #### [facility] [address] [place] [address] [address] Betina Holly GLYCOHEMOGLOBIN A1Con 2022 ADA RECOMMENDATION SEE BELOW Normal [facility] Comment on above: Result Comment: ADA RECOMMENDED LIMIT 4.0 - 6.0 ADA THERAPEUTIC TARGET < 7.0 ACTION SUGGESTED > 7.0 Performed By: #### A 1C #### [facility] [address] [place] [address] [address] Betina Holly Glucose [Mass/Vol] 114 mg/dL Normal The [facility] Comment on above: Performed By: #### A 1C #### [facility] [address] [place] [address] [address] Betina Holly HbA1c (Bld) [Mass fraction] 5.6 % Normal 4.5-6.2 [facility] Comment on above: Performed By: #### A 1C #### [facility] [address] [place] [address] [address] Betina Holly IRONon 03-31-2022 Iron [Mass/Vol] 72.0 ug/dL Normal 50.0-170.0 [facility] Comment on above: Performed By: #### I MARCE #### [facility] [address] [place] [address] [address] Betina Holly LIPID PROFILEon 03-31-2022 CHOL-HDL RATIO NORM SEE BELOW Normal [facility] Comment on above: Result Comment: 3.3 - 4.4 LOW RISK 4.4 - 7.1 AVERAGE RISK 7.1 - 11.0 MODERATE RISK >11.0 HIGH RISK Performed By: #### C MP, LIPID, TSH, T7 #### [facility] [address] [place] [address] [address] Betina Holly Cholesterol [Mass/Vol] 167 mg/dL Normal <=200 [facility] Comment on above: Performed By: #### C MP, LIPID, TSH, T7 #### [facility] [address] [place] [address] [address] Betina Holly Cholesterol in HDL [Mass/Vol] 43 mg/dL Normal 40-60 [facility] Comment on above: Performed By: #### C MP, LIPID, TSH, T7 #### [facility] [address] [place] [address] [address] Betina Holly Cholesterol in LDL [Mass/Vol] 93.4 mg/dL Normal [facility] Comment on above: Performed By: #### C MP, LIPID, TSH, T7 #### [facility] [address] [place] [address] [address] Betina Holly Cholesterol.total/C holesterol in HDL [Mass ratio] 3.9 {ratio} Normal [facility] Comment on above: Performed By: #### C MP, LIPID, TSH, T7 #### [facility] [address] [place] [address] [address] Betina Holly HDL NORMAL > or = 60 mg/dl - LO W CARDIOVASCULAR RISK <40 mg/dl - HIGH CARDIOVASCULAR RISK Normal [facility] Comment on above: Performed By: #### C MP, LIPID, TSH, T7 #### [facility] [address] [place] [address] [address] Betina Holly LDL CALC NORMAL SEE BELOW Normal [facility] Comment on above: Result Comment: <100 mg/dl OPTIMAL 100 - 129 mg/dl NEAR OR ABOVE OPTIMAL 130 - 159 mg/dl BORDERLINE HIGH 160 - 189 mg/dl HIGH >190 mg/dl VERY HIGH Performed By: #### C MP, LIPID, TSH, T7 #### [facility] [address] [place] [address] [address] Betina Holly Triglyceride [Mass/Vol] 153 mg/dL Critically high <=150 [facility] Comment on above: Performed By: #### C MP, LIPID, TSH, T7 #### [facility] [address] [place] [address] [address] Betina Holly VLDL CALC 30.6 mg/dL Normal [facility] Comment on above: Performed By: #### C MP, LIPID, TSH, T7 #### [facility] [address] [place] [address] [address] Betina Holly PROF 14(COMP METB)on 023 Albumin [Mass/Vol] 3.9 g/dL Normal 3.4-5.0 [facility] Comment on above: Performed By: #### C MP, LIPID, TSH, T7 #### [facility] [address] [place] [address] [address] Betina Holly Albumin/Globulin [Mass ratio] 1.1 {ratio} Normal [facility] Comment on above: Performed By: #### C MP, LIPID, TSH, T7 #### [facility] [address] [place] [address] [address] Betina Holly ALP [Catalytic activity/Vol] 126 U/L Critically high 46-116 [facility] Comment on above: Performed By: #### C MP, LIPID, TSH, T7 #### [facility] [address] [place] [address] [address] Betina Holly ALT [Catalytic activity/Vol] 16 U/L Normal 14-59 [facility] Comment on above: Performed By: #### C MP, LIPID, TSH, T7 #### [facility] [address] [place] [address] [address] Betina Holly Anion gap [Moles/Vol] 15.3 mmol/L Normal [facility] Comment on above: Performed By: #### C MP, LIPID, TSH, T7 #### [facility] [address] [place] [address] [address] Betina Holly AST [Catalytic activity/Vol] 11 U/L Critically low 15-37 [facility] Comment on above: Performed By: #### C MP, LIPID, TSH, T7 #### [facility] [address] [place] [address] Dr. Betina Holly Bilirubin [Mass/Vol] 0.4 mg/dL Normal 0.2-1.0 [facility] Comment on above: Performed By: #### C MP, LIPID, TSH, T7 #### [facility] [address] [place] [address] Dr. Betina Holly Calcium [Mass/Vol] 9.4 mg/dL Normal 8.5-10.1 [facility] Comment on above: Performed By: #### C MP, LIPID, TSH, T7 #### [facility] [address] [place] [address] Dr. Betina Holly Chloride [Moles/Vol] 108 mmol/L Critically high 98-107 [facility] Comment on above: Performed By: #### C MP, LIPID, TSH, T7 #### [facility] [address] [place] [address] Dr. Betina Holly CO2 [Moles/Vol] 26.4 mmol/L Normal 21.0-32.0 [facility] Comment on above: Performed By: #### C MP, LIPID, TSH, T7 #### [facility] [address] [place] [address] Dr. Betina Holly Creatinine [Mass/Vol] 0.88 mg/dL Normal 0.55-1.02 [facility] Comment on above: Performed By: #### C MP, LIPID, TSH, T7 #### [facility] [address] [place] [address] Dr. Betina Holly EGFR-AF GUATEMALAN >60 Normal >=60 [facility] Comment on above: Performed By: #### C MP, LIPID, TSH, T7 #### [facility] [address] [place] [address] Dr. Betina Holly EGFR-NON AF GUATEMALAN >60 Normal >=60 [facility] Comment on above: Performed By: #### C MP, LIPID, TSH, T7 #### [facility] [address] [place] [address] [address] Betina Holly Globulin (S) [Mass/Vol] 3.6 g/dL Normal [facility] Comment on above: Performed By: #### C MP, LIPID, TSH, T7 #### [facility] [address] [place] [address] [address] Betina Holly Glucose [Mass/Vol] 105 mg/dL Normal 74-106 The [facility] Comment on above: Performed By: #### C MP, LIPID, TSH, T7 #### [facility] [address] [place] [address] [address] Betina Holly Potassium [Moles/Vol] 4.7 mmol/L Normal 3.5-5.1 [facility] Comment on above: Performed By: #### C MP, LIPID, TSH, T7 #### [facility] [address] [place] [address] Dr. Betina Holly Protein [Mass/Vol] 7.5 g/dL Normal 6.4-8.2 The [facility] Comment on above: Performed By: #### C MP, LIPID, TSH, T7 #### [facility] [address] [place] [address] [address] Betina Holly Sodium [Moles/Vol] 145 mmol/L Normal 136-145 The [facility] Comment on above: Performed By: #### C MP, LIPID, TSH, T7 #### [facility] [address] [place] [address] [address] Betina Holly Urea nitrogen [Mass/Vol] 15.0 mg/dL Normal 7.0-18.0 [facility] Comment on above: Performed By: #### C MP, LIPID, TSH, T7 #### [facility] [address] [place] [address] [address] Betina Holly Urea nitrogen/Creatinine [Mass ratio] 17.0 mg/mg Normal [facility] Comment on above: Performed By: #### C MP, LIPID, TSH, T7 #### [facility] [address] [place] [address] Dr. Betina Holly TSHon 03-31-2022 TSH 1.079 uIU/mL Normal 0.358-3.740 [facility] Comment on above: Performed By: #### C MP, LIPID, TSH, T7 #### [facility] [address] [place], [place] [address] Dr. Betina Holly WRIST LEFT 3 VWSon 2 WRIST LEFT [address] [facility] Department of Radiology [address] [place] [id number] ===== Patient Name: LORRAINE SALEH : [...] stable. Electronically signed: Leanne Ferreira. Transcribed by: [email or web address], User Resident: Electronically Signed by: LEANNE FERREIRA @ 09/22/2021 03:03 PM Normal The [facility] XR ANKLE LEFT 3+ VIEWS (JOSESITO DARD)on [...] SatOct 09, 2019 11:31:58 PM EDT Normal [facility] Comment on above: Order Comment: Injur y/Trauma [...] change is seen. IMPRESSION: Negative-appearing left foot. [facility] Workstation ID: [id number] Dictated by: KAYODE HAYNES on SatOct 09, 2019 11:32:58 PM EDT Transcribed by: ADILENE HOBSON on SatOct 09, 2019 11:45:17 PM EDT Finalized by: KAYODE HAYNES on SatOct 09, 2019 11:55:01 PM EDT Normal [facility] Comment on above: Order Comment: Injur y/Trauma [...] fracture or traumatic change. Workstation ID: [id number] [facility] EXAMINATION: XR ANKL E LEFT 3+ [...] There is some mild soft tissue swelling. [facility] Interface, Rad In Fu ji Speechq [...] fracture or traumatic change. Workstation ID: [id number] [facility] XR FOOT LEFT 3+ VIEWS (STAND AR)on 10-09-2019 Negative-appearing l eft foot. [facility] Workstation ID: [id number] [facility] EXAMINATION: XR FOOT LEFT 3+ VIEWS [...] dislocation or major degenerative change is seen. [facility], Rad In Fu ji Speechq - 10/09/2019 [...] change is seen. IMPRESSION: Negative-appearing left foot. [facility]/[employer] Workstation ID: [id number] [facility] XR Ankle 3+ Views Lefton XR Ankle 3+ Views Left Exam Date/Time: 09/06/2018 16:58 EDT Reason for Exam: Trauma Report STUDY: XR Ankle 3+ Views Left; 09/06/2018 4:58 pm INDICATION: Trauma. COMPARISON: None. ACCESSION NUMBER(S): [id number] ORDERING CLINICIAN: Selwyn Flynn FINDINGS: There is [...] pm Signed by: Shimon Nuñez MD Technologist: [facility] XR Tib/Fib Left 2 Viewon XR Tib/Fib Left 2 View Exam Date/Time: 09/06/2018 16:58 EDT Reason for Exam: Pain, Traumatic Report STUDY: XR Tib/Fib Left 2 View; 09/06/2018 4:58 pm INDICATION: Pain, Traumatic. COMPARISON: None. ACCESSION NUMBER(S): [id number] ORDERING CLINICIAN: Selwyn Flynn FINDINGS: There is no fracture, dislocation, joint space narrowing, or effusion. There is no significant soft tissue swelling. There is normal bony mineralization. IMPRESSION: No fracture FINAL REPORT Dictated: 09/06/2018 6:22 pm Shimon Nuñez MD Signed (Electronic Signature): 09/06/2018 6:22 pm Signed by: Shimon Nuñez MD Technologist: [facility] Vital Signs Date Time Vital Sign Value Performing Clinician Marco Antonioi deborah 10-09-2019 22:58-0400 Body Temperature 98.1 [degF] [facility] 10-09-2019 22:58-0400 BP Diastolic 89 mm[Hg] [facility] 10-09-2019 22:58-0400 BP Systolic 163 mm[Hg] [facility] 10-09-2019 22:58-0400 Pulse (Heart Rate) 86 /min [facility] 10-09-2019 22:58-0400 Pulse Oximetry 98 % [facility] 10-09-2019 22:58-0400 Respiratory Rate 18 /min [facility] 10-09-2019 22:53-0400 BMI (Body Mass Index) 41.02 kg/m2 Veronica Leong [facility] 10-09-2019 22:53-0400 Body [facility].54 [facility] 10-09-2019 22:53-0400 Height 179.1 cm [facility] Encounters Encounter Date Encounter Type Care Provider Facility Start: 09-20-2022 End: 09-21-2022 ambulatory [facility] Start: 04-25-2022 End: 04-26-[address] JORGE HANKINS . Facility:[facility] Start: 04-19-2022 End: 04-20-2022 ambulatory ELIEZERSPARKLE GUEVARA Facility:[facility] Start: 04-17-2022 End: 04-18-[address] JORGE HANKINS . Facility:[facility] Start: 04-06-2022 Encounter for genera l adult medical examination without abnormal findings DR JORGE HANKINS . [facility] Start: 03-31-2022 End: 04-01-[address] JORGE HANKINS . Facility:[facility] Start: 03-31-2022 End: 04-01-2022 Encounter for general adult medical examination without abnormal findings DR JORGE HANKINS . Facility:[facility] Start: 12-15-2021 End: 01-18-[address] JORGE HANKINS . Facility:[facility] Start: 04-27-2020 End: 04-27-2020 Orders Only Anni Castro Work Phone: [facility] Start: 10-10-2019 End: 10-10-2019 Emergency department patient visit [facility] Start: 10-09-2019 End: 10-10-2019 [facility] Work Phone: [facility] Comment on above: Sprain of left ankle , unspecified ligament, initial encounter (Primary Dx) Procedures Date Procedure Procedure Detail Performing Clinician Start: 10-09-2019 X-ray of left ankle Dewey Leong Work Phone: Start: 10-09-2019 X-ray of left foot Con guan Dang Work Phone: Plan of Treatment Date Care Activity Detail Author Start: 10-20-2019 Influenza vaccination given Se quential Influenza Vaccine (#1) [facility] Start: 2014 Administration of he rpes zoster vaccine Zoster Vaccines (1 of 2) [facility] Start: 2014 Screening for malign ant neoplasm of colon [facility] Start: 1982 Hepatitis C antibody , confirmatory test Hepatitis C Screening [facility] Start: 1980 COVID-19 Vaccine (1 of 2) COVID-19 V accine (1 of 2) [facility] Start: 11-24-1979 HIV screening HIV Screening [facility] Start: 1976 Adolescent depressio n screening assessment Depression Screening (PHQ9) [facility] Start: 11-24-1967 History and physical examination, annual for health maintenance Wellness Visit [facility] Start: 1964 Screening for malign ant neoplasm of cervix Pap Smear [facility] Start: 1964 Screening mammography Mammogram [facility] Start: 1964 Tetanus vaccination Tetanus: Every 1 0yrs [facility] Payers Date Payer Category Payer Unknown [facility] [employer] [id number] 2017-Present [id number] 2017 Unknown [id number] 2011 Unknown [id number] 1964 Unknown [id number] 1964 Unknown [id number] 3 1964 Unknown [id number] 3 1964 Unknown [id number] 3 1964 Unknown [id number] 3 1964 Unknown [id number] 3 1959 Unknown [id number] 1959 Unknown [id number] Social History Date Type Detail Facility Start: 10-09-2019 Tobacco smoking status NHIS Never sm oker [facility] Start: 10-09-2019 Tobacco use and exposure Never used [facility] Start: 10-09-2019 Alcohol intake Current drinke r of alcohol (finding) [facility] Start: 10-09-2019 Alcohol Comment social [facility] Sex Assigned At Not on file [facility] Exposure to SARS-CoV -2 (event) Not sure [facility] Progress note 09-20-2022 Note Date & [...] reaction(s): Vomiting Nausea Oxycodone-Acetaminophen Other reaction(s): other Rzv-Nyumpqcwj-Vn-Acetaminophen Rash Saouhjqkw-Ntc-Fm-Acetaminophen Rash does fine with tylenol and sudafed [...] wrist dorsal capsulodesis (09/07/13). Overall doing well. [facility]. XR L wrist obtained today shows [...] wrist. Mike Singh MD Orthopaedic Surgery PGY-2 [facility] 09/20/22 11:[address] 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 * Ankle Sprain ([place] Islander) documented in this encounter Assessments Diagnosis Sprain of left ankle, unspecified ligament, initial encounter- Primary Additional Source Comments INFORMATION SOURCE (unrecogn ized section and content) DATE CREATED AUTHOR 09/06/2018 [facility] DATE CREATED AUTHOR AUTHOR'S ORGANIZ ATION 10/15/2019 [facility] DATE CREATED AUTHOR AUTHOR'S ORGANIZ ATION 10/02/2021 [facility] DATE CREATED AUTHOR AUTHOR'S ORGANIZ ATION 04/29/2022 [facility] DATE CREATED AUTHOR AUTHOR'S ORGANIZ ATION 09/22/2022 [facility] Reason for Visit (unrecogniz ed section and content) Reason Comments Ankle Injury Veronica Leong MD - 10/09/2019 11:08 PM EDTCRosemary gomez RN - 10/09/2019 10:51 PM EDT ED Notes (unrecognized secti on and content) ED PROVIDER NOTE [facility] NAME: Lorraine Saleh AGE: 53 y.o. : 1965 VISIT DATE: 10/09/2019 CSN: [id number] PCP: Jorge Hankins MD Chief Complaint Patient presents with Ankle Injury Ankle Injury Pt p/w fall. 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 Was coming out of her 3 [...] file Gets together: Not on file Attends episcopal service: Not on file Active member of [...] Views (Standard) Final Result Negative-appearing left foot. [facility] Workstation ID: [id number] Procedures MDM Number [...] BE BASED ON THE PRIMARY CLINICAL RECORDS. [employer] provides no warranty or guarantee of the accuracy or completeness of information in this document.
[2024-04-18 08:14] LABS: Basophils Absolute Auto 0.1 10^3/uL (0.0-0.1); Basophils Percent Auto 0.7 % (0.2-2.0); Eosinophils Absolute Auto 0.2 10^3/uL (0.0-0.7); Eosinophils Percent Auto 2.3 % (0.9-7.0); Hematocrit 40.6 % (36.0-48.0); Hemoglobin 13.1 g/dL (12.0-16.0); Immature Granulocytes Abs Auto 0.03 10^3/uL (0.00-0.03); Immature Granulocytes Pct Auto 0.4 % (0.0-0.5); Lymphocytes Percent Auto 27.7 % (20.5-60.0); Mean Corpuscular HGB Conc 32.3 g/dL (29.9-35.2); Mean Corpuscular Hemoglobin 27.7 pg (26.7-34.0); Mean Corpuscular Volume 85.8 fL (81.0-99.0); Mean Platelet Volume 10.3 fL (9.5-13.5); Monocytes Absolute Auto 0.4 10^3/uL (0.3-0.8); Neutrophils Absolute Auto 4.6 10^3/uL (1.4-6.5); Neutrophils Percent Auto 62.9 % (43.0-75.0); Platelet Count 207 10^3/uL (150-450); Red Blood Count 4.73 10^6/uL (4.20-5.40); Red Cell Distribution Width 13.6 % (11.0-15.0); White Blood Count 7.4 10^3/uL (4.0-11.0)
[2024-04-18 08:37] LABS: Estimated Average Glucose 117 mg/dL; Glycohemoglobin A1C 5.7 % (4.5-6.2)
[2024-04-18 09:14] LABS: Alanine Aminotransferase 10 U/L (14-59); Albumin Globulin Ratio 1.2; Albumin Level 3.8 g/dL (3.4-5.0); Alkaline Phosphatase 125 U/L (46-116); Anion Gap 14.3; Aspartate Amino Transferase 10 U/L (15-37); BUN Creatinine Ratio 14.4; Bilirubin Total 0.4 mg/dL (0.2-1.0); Chloride 108 mmol/L (98-107); Chol HDL Ratio 5.1; Cholesterol 183 mg/dL (<=200); Estimated GFR (African America >60 (>=60 mL/min/1.73m^2); Estimated GFR (Non-African Ame >60 (>=60 mL/min/1.73m^2); Free T3 3.03 pg/mL (2.18-3.98); Globulin 3.2 g/dL; Glucose 119 mg/dL (74-106); HDL Cholesterol 36 mg/dL (40-60); Potassium 4.3 mmol/L (3.5-5.1); Sodium 142 mmol/L (136-145); Triglycerides 239 mg/dL (<=150); VLDL CHOLESTEROL 47.8 mg/dL
== END 2024-04-18 07:39 | disposition home or self-care (01) ==
PROVIDERS: PCP Family Medicine; Visit Provider Family Medicine
DX: Z00.00 Encounter for general adult medical examination without abnormal findings (principal)
CPT/HCPCS: 36415; 80053; 80061; 83036; 84436; 84443; 84481; 85025

== ENCOUNTER 2024-04-28 15:34 | Outpatient (OUT) | payer OTHER, SELFPAY ==
--- NOTE | 2024-04-28 15:38 | MM_ITS ---
Patient Name: LORRAINE WILSON MR#: [id number] : 1965 Exam Date: 04/28/2024 Ordering Doctor: DR Bonilla Hankins . RADIOLOGY REPORT PROCEDURE: MM TOMOSYNTHESIS SCREENING BI COMPARISON: MM TOMOSYNTHESIS SCREENING BI, 04/23/2023. MG MAMM SCREEN 3D GOOD CAD, 04/17/2022. MG MAMM SCREEN 3D GOOD CAD, 04/13/2021. MG MAMM GOOD SCRN W CAD DIG, 03/23/2014. INDICATIONS: Screening Calculator Name NCI Breast Cancer Risk Assessment Tool 5 Year Breast Cancer Risk 1.10% Lifetime Breast Cancer Risk 6.20% Personal Breast Cancer No Personal Ovarian Cancer No Treatments None Family Cancers Grandfather-maternal with esophageal cancer at age 83. LOCATION: [facility] BREAST COMPOSITION: The breasts are heterogeneously dense,which may obscure small masses. FINDINGS: DIAGNOSTIC CATEGORY 1--NEGATIVE. LEFT BREAST: No significant suspicious finding. RIGHT BREAST: No significant suspicious finding. RECOMMENDATIONS: ROUTINE MAMMOGRAM AND CLINICAL EVALUATION IN 12 MONTHS. PLEASE NOTE: A NORMAL MAMMOGRAM DOES NOT EXCLUDE THE POSSIBILITY OF BREAST CANCER. A CLINICALLY SUSPICIOUS PALPABLE LUMP SHOULD BE BIOPSIED. Dictated by: Ramakrishna Ortega DO on 04/30/2024 at 09:41 Approved by: Ramakrishna Ortega DO on 04/30/2024 at 09:44
--- OUTSIDE RECORDS SUMMARY | 2024-04-28 15:51 | XMS_ITS | CCD ---
Author Organization [facility] Care Team Providers Care Senior Network Security Engineer Name Role Phone Jorge Hankins Primary Care Provider [phone] VERONICA LEONG Attending Unavailable RAULYJORGE Primary Care [...] sources) Cephalexin; Translations: [Unknown] Drug Allergy 5 [facility] [place] (3 sources) Ciprofloxacin; Translations: [CIPROFLOXACIN] Drug Allergy 4 [facility] [place] (1 source) Cephalexin Drug Allergy 5 [facility] (1 source) Ciprofloxacin Drug Allergy 5 [facility] (1 source) Acetaminophen / oxyCODONE; Translations: [OXYCODONE-ACETAM INOPHEN] Drug Allergy 4 [facility] Repository (1 source) XWA-SBHOKZDDH-PE- ACETAMINOPHEN; Translations: [PMQ-XMIWXEQIH-RW -ACETAMINOPHEN] Propensity to adverse reactions to drug (disorder) 5 [facility] (1 source) ARHWLKKZZ-EVN-MX- ACETAMINOPHEN; Translations: [UOASGIDJK-EVF-OT -ACETAMINOPHEN] Propensity to adverse reactions to drug (disorder) 5 [facility] Medications Current Medications Medication Drug [...] Interpretation Reference Range Facility Follow-Upon 09-20-2022 Follow-Up [id number] Tamara Saleh 1965 F Date Provider Department Center 09/20/2022 373-ANURAG, NINFA MP ORTHO MPORTHO No family history on file Level of Service:97539 MO OFFICE/OUTPATIENT ESTABLISHED LOW MDM 20-29 MIN () Reason for Visit and Comments: Pain [136] Follow-up [150240] Normal [facility] AMYLASEon 04-25-2022 Amylase [Catalytic activity/Vol] 46 U/L Normal 25-115 [facility] Comment on above: Performed By: #### L IPA, KWADWO, LIPID ####[facility] [address] [place] [address]Dr. Betina Holly CBC AUTO DIFFon 04-25-2022 BASO # 0.1 103/ul Normal 0.0-0.1 [facility] Comment on above: Performed By: #### C BC ####[facility] [address] [place], [place] [address]Dr. Betina Holly Basophils/100 WBC (Bld) 0.7 % Normal 0.2-2.0 [facility] Comment on above: Performed By: #### C BC ####[facility] [address] [place], [place] [address]Dr. Betina Holly EO # 0.2 103/ul Normal 0.0-0.7 [facility] Comment on above: Performed By: #### C BC ####[facility] [address] [place], [place] [address]Dr. Betina Holly Eosinophils/100 WBC (Bld) 2.0 % Normal 0.9-7.0 [facility] Comment on above: Performed By: #### C BC ####[facility] [address] [place], [place] [address]Dr. Betina Holly Erythrocyte distribution width (RBC) [Ratio] 13.2 % Normal 11.0-15.0 [facility] Comment on above: Performed By: #### C BC ####[facility] [address] [place], [place] [address]Dr. Betina Holly Hematocrit (Bld) [Volume fraction] 42.6 % Normal 36.0-48.0 [facility] Comment on above: Performed By: #### C BC ####[facility] [address] [place] [address]Dr. Betina Holly Hemoglobin (Bld) [Mass/Vol] 13.6 g/dL Normal 12.0-16.0 [facility] Comment on above: Performed By: #### C BC ####[facility] [address] [place] [address]Dr. Betina Holly IG # 0.08 10e3/ul Critically high 0.00-0.03 [facility] Comment on above: Performed By: #### C BC ####[facility] [address] [place] [address]Dr. Betina Holly IG % 0.9 % Critically high 0.0-0.5 [facility] Comment on above: Performed By: #### C BC ####[facility] [address] [place] [address]Dr. Betina Holly LYMPH # 2.5 103/ul Normal 1.2-3.8 [facility] Comment on above: Performed By: #### C BC ####[facility] [address] [place] [address]Dr. Betina Holly Lymphocytes/100 WBC (Bld) 26.8 % Normal 20.5-60.0 [facility] Comment on above: Performed By: #### C BC ####[facility] [address] [place] [address]Dr. Betina Holly MANUAL DIFF REQ NO Normal [facility] Comment on above: Performed By: #### C BC ####[facility] [address] [place] [address]Dr. Betina Holly MCH (RBC) [Entitic mass] 27.4 pg Normal 26.7-34.0 [facility] Comment on above: Performed By: #### C BC ####[facility] [address] [place] [address]Dr. Betina Holly MCHC (RBC) [Mass/Vol] 31.9 g/dL Normal 29.9-35.2 [facility] Comment on above: Performed By: #### C BC ####[facility] [address] [place], [place] [address]Dr. Betina Holly MCV (RBC) [Entitic vol] 85.9 fL Normal 81.0-99.0 [facility] Comment on above: Performed By: #### C BC ####[facility] [address] [place] [id number]. Betina Holly MONO # 0.5 103/ul Normal 0.3-0.8 [facility] Comment on above: Performed By: #### C BC ####[facility] Yu[address]chv[address] [place] [address]Dr. Betina Avni Monocytes/100 WBC (Bld) 5.7 % Normal 1.7-12.0 [facility] Comment on above: Performed By: #### C BC ####[facility] [address] [place] [address]Dr. Betina Holly NEUT # 5.9 103/ul Normal 1.4-6.5 [facility] Comment on above: Performed By: #### C BC ####[facility] [address]te[address] [place] [address]Dr. Betina Avni Neutrophils/100 WBC (Bld) 63.9 % Normal 43.0-75.0 [facility] Comment on above: Performed By: #### C BC ####[facility] [address] [place] [address]Dr. Betina Avni Platelet mean volume (Bld) [Entitic vol] 9.8 fL Normal 9.5-13.5 [facility] Comment on above: Performed By: #### C BC ####[facility] [address] [place] [address]Dr. Betina Avni PLT 273 103/ul Normal 150-450 [facility] Comment on above: Performed By: #### C BC ####[facility] [address] [place] [id number]. Betina Avni RBC 4.96 106/ul Normal 4.20-5.40 [facility] Comment on above: Performed By: #### C BC ####[facility] [address] [place] [address]Dr. Betina Holly WBC 9.2 103/ul Normal 4.0-11.0 [facility] Comment on above: Performed By: #### C BC ####[facility] [address] [place] [id number]. Betina Holly LIPASEon 04-25-2022 Lipase [Catalytic activity/Vol] 71.0 U/L Critically low 73.0-393.0 [facility] Comment on above: Performed By: #### L KWADWO CARBAJAL, LIPID ####[facility] [address] [place] [id number]. Betina Holly LIPID PROFILEon 04-25-2022 CHOL-HDL RATIO NORM SEE BELOW Normal [facility] Comment on above: Result Comment: 3.3 - 4.4 LOW RISK 4.4 - 7.1 AVERAGE RISK 7.1 - 11.0 MODERATE RISK >11.0 HIGH RISK Performed By: #### L SOLOMON KWADWO, LIPID ####[facility] [address] [place] [address]Dr. Betina Holly Cholesterol [Mass/Vol] 174 mg/dL Normal <=200 [facility] Comment on above: Performed By: #### L KWADWO CARBAJAL, LIPID ####[facility] [address] [place] [address]Dr. Betina Holly Cholesterol in HDL [Mass/Vol] 48 mg/dL Normal 40-60 [facility] Comment on above: Performed By: #### L KWADWO CARBAJAL, LIPID ####[facility] [address] [place] [address]Dr. Betina Holly Cholesterol in LDL [Mass/Vol] 101.2 mg/dL Normal [facility] Comment on above: Performed By: #### L SOLOMON KWADWO, LIPID ####[facility] [address]ft[address]tm[address] [place] [address]Dr. Betina Holly Cholesterol.total/C holesterol in HDL [Mass ratio] 3.6 {ratio} Normal [facility] Comment on above: Performed By: #### L IPA KWADWO, LIPID ####[facility] [address] [place] [id number]. Betina Holly HDL NORMAL > or = 60 mg/dl - LO W CARDIOVASCULAR RISK <40 mg/dl - HIGH CARDIOVASCULAR RISK Normal [facility] Comment on above: Performed By: #### L KWADWO CARBAJAL, LIPID ####[facility] [address] [place], [place] [address]Xe. Betina Holly LDL CALC NORMAL SEE BELOW Normal [facility] Comment on above: Result Comment: <100 mg/dl OPTIMAL 100 - 129 mg/dl NEAR OR ABOVE OPTIMAL 130 - 159 mg/dl BORDERLINE HIGH 160 - 189 mg/dl HIGH >190 mg/dl VERY HIGH Performed By: #### L KWADWO CARBAJAL, LIPID ####[facility] [address] [place], [place] [address]Qx. Charletteleticia Holly Triglyceride [Mass/Vol] 124 mg/dL Normal <=150 [facility] Comment on above: Performed By: #### L KWADWO CARBAJAL, LIPID ####[facility] [address] [place], [place] [address]Wv. Betina Holly VLDL CALC 24.8 mg/dL Normal [facility] Comment on above: Performed By: #### L KWADWO CARBAJAL, LIPID ####[facility] [address] [place], [place] [address]Dn. Betina Holly US SINGLE QUAD RT UPPERon [...] JAZMINE TILLEY Date: 2022-04-25 11:05 Normal [facility] XR FOOT GOOD MIN 3 VIEWSon [...] JAZMINE TILLEY Date: 2022-04-19 16:19 Normal [facility] MAMM SCREEN 3D GOOD CADon 04-17-2022 MG MAMM SCREEN 3D GOOD CAD Patient: LORRAINE SALEH Exam Date: 04/17/2022 : 1965 Gender:F Ordering : DR JORGE HANKINS . Admission #: [id number] Family : Order #: [id number] CLICK HERE TO VIEW EXAM RADIOLOGY REPORT [...] esophageal cancer at age 82. LOCATION: [facility] BREAST COMPOSITION: Heterogeneously dense,which may obscure [...] MD on 04/18/2022 at 08:33 Normal [facility] INSULINon 04-02-2022 Insulin 13.7 uIU/mL Normal 2.6-24.9 [facility] Comment on above: Performed By: #### I NSULIN ####[facility] [address] [place], [place] [address]Dr. Betina Holly CBC AUTO DIFFon 03-31-2022 BASO # 0.1 103/ul Normal 0.0-0.1 [facility] Comment on above: Performed By: #### C BC #### [facility] [address] [place] [address] [address] Betina Holly Basophils/100 WBC (Bld) 0.7 % Normal 0.2-2.0 [facility] Comment on above: Performed By: #### C BC #### [facility] [address] [place] [address] [address] Betina Holly EO # 0.1 103/ul Normal 0.0-0.7 [facility] Comment on above: Performed By: #### C BC #### [facility] [address] [place] [address] [address] Betina Holly Eosinophils/100 WBC (Bld) 1.7 % Normal 0.9-7.0 [facility] Comment on above: Performed By: #### C BC #### [facility] [address] [place] [address] [address] Betina Holly Erythrocyte distribution width (RBC) [Ratio] 13.3 % Normal 11.0-15.0 [facility] Comment on above: Performed By: #### C BC #### [facility] [address] [place] [address] [address] Betina Holly Hematocrit (Bld) [Volume fraction] 40.5 % Normal 36.0-48.0 [facility] Comment on above: Performed By: #### C BC #### [facility] [address] [place] [address] [address] Betina Holly Hemoglobin (Bld) [Mass/Vol] 13.1 g/dL Normal 12.0-16.0 [facility] Comment on above: Performed By: #### C BC #### [facility] [address] [place] [address] [address] Betina Holly IG # 0.05 10e3/ul Critically high 0.00-0.03 [facility] Comment on above: Performed By: #### C BC #### [facility] [address] [place] [address] Dr. Betina Holly IG % 0.6 % Critically high 0.0-0.5 [facility] Comment on above: Performed By: #### C BC #### [facility] [address] [place] [address] Dr. Betina Holly LYMPH # 2.2 103/ul Normal 1.2-3.8 [facility] Comment on above: Performed By: #### C BC #### [facility] [address] [place] [address] Dr. Betina Holly Lymphocytes/100 WBC (Bld) 27.2 % Normal 20.5-60.0 [facility] Comment on above: Performed By: #### C BC #### [facility] [address] [place] [address] Dr. Betina Holly MANUAL DIFF REQ NO Normal [facility] Comment on above: Performed By: #### C BC #### [facility] [address] [place] [address] Dr. Betina Holly MCH (RBC) [Entitic mass] 28.1 pg Normal 26.7-34.0 [facility] Comment on above: Performed By: #### C BC #### [facility] [address] [place] [address] Dr. Betina Holly MCHC (RBC) [Mass/Vol] 32.3 g/dL Normal 29.9-35.2 [facility] Comment on above: Performed By: #### C BC #### [facility] [address] [place] [address] Dr. Betina Holly MCV (RBC) [Entitic vol] 86.7 fL Normal 81.0-99.0 [facility] Comment on above: Performed By: #### C BC #### [facility] [address] [place] [address] Dr. Betina Holly MONO # 0.5 103/ul Normal 0.3-0.8 [facility] Comment on above: Performed By: #### C BC #### [facility] [address] [place] [address] Dr. Betina Holly Monocytes/100 WBC (Bld) 6.0 % Normal 1.7-12.0 [facility] Comment on above: Performed By: #### C BC #### [facility] [address] [place] [address] Dr. Betina Holly NEUT # 5.2 103/ul Normal 1.4-6.5 [facility] Comment on above: Performed By: #### C BC #### [facility] [address] [place] [address] Dr. Betina Holly Neutrophils/100 WBC (Bld) 63.8 % Normal 43.0-75.0 [facility] Comment on above: Performed By: #### C BC #### [facility] [address] [place] [address] Dr. Betina Holly Platelet mean volume (Bld) [Entitic vol] 9.8 fL Normal 9.5-13.5 [facility] Comment on above: Performed By: #### C BC #### [facility] [address] [place] [address] Dr. Betina Holly PLT 226 103/ul Normal 150-450 [facility] Comment on above: Performed By: #### C BC #### [facility] [address] [place] [address] Dr. Betina Holly RBC 4.67 106/ul Normal 4.20-5.40 [facility] Comment on above: Performed By: #### C BC #### [facility] [address] [place] [address] Dr. Betina Holly WBC 8.2 103/ul Normal 4.0-11.0 [facility] Comment on above: Performed By: #### C BC #### [facility] [address] [place] [address] Dr. Betina Holly FREE THYROXINE INDEX T7on FTI 2.18 Normal 1.30-4.50 [facility] Comment on above: Performed By: #### C MP, LIPID, TSH, T7 #### [facility] [address] [place] [address] [address] Betina Holly T3U 37.0 % Normal 30.0-39.0 [facility] Comment on above: Performed By: #### C MP, LIPID, TSH, T7 #### [facility] [address] [place] [address] [address] Betina Holly T4 [Mass/Vol] 5.90 ug/dL Normal 4.80-13.90 [facility] Comment on above: Performed By: #### C MP, LIPID, TSH, T7 #### [facility] [address] [place] [address] [address] Betina Holly GLYCOHEMOGLOBIN A1Con 2022 ADA RECOMMENDATION SEE BELOW Normal [facility] Comment on above: Result Comment: ADA RECOMMENDED LIMIT 4.0 - 6.0 ADA THERAPEUTIC TARGET < 7.0 ACTION SUGGESTED > 7.0 Performed By: #### A 1C #### [facility] [address] [place] [address] [address] Betina Holly Glucose [Mass/Vol] 114 mg/dL Normal [facility] Comment on above: Performed By: #### A 1C #### [facility] [address] [place] [address] [address] Betina Holly HbA1c (Bld) [Mass fraction] 5.6 % Normal 4.5-6.2 [facility] Comment on above: Performed By: #### A 1C #### [facility] [address] [place] [address] [address] Betina Holly IRONon 03-31-2022 Iron [Mass/Vol] 72.0 ug/dL Normal 50.0-170.0 [facility] Comment on above: Performed By: #### I MARCE #### [facility] [address] [place] [address] [address] Betina Holly LIPID PROFILEon 03-31-2022 CHOL-HDL RATIO NORM SEE BELOW Normal [facility] Comment on above: Result Comment: 3.3 - 4.4 LOW RISK 4.4 - 7.1 AVERAGE RISK 7.1 - 11.0 MODERATE RISK >11.0 HIGH RISK Performed By: #### C MP, LIPID, TSH, T7 #### [facility] [address] [place] [address] [address] Betina Holly Cholesterol [Mass/Vol] 167 mg/dL Normal <=200 [facility] Comment on above: Performed By: #### C MP, LIPID, TSH, T7 #### [facility] [address] [place] [address] [address] Betina Holly Cholesterol in HDL [Mass/Vol] 43 mg/dL Normal 40-60 [facility] Comment on above: Performed By: #### C MP, LIPID, TSH, T7 #### [facility] [address] [place] [address] [address] Betina Holly Cholesterol in LDL [Mass/Vol] 93.4 mg/dL Normal [facility] Comment on above: Performed By: #### C MP, LIPID, TSH, T7 #### [facility] [address] [place] [address] [address] Betina Holly Cholesterol.total/C holesterol in HDL [Mass ratio] 3.9 {ratio} Normal [facility] Comment on above: Performed By: #### C MP, LIPID, TSH, T7 #### [facility] [address] [place] [address] [address] Betina Holly HDL NORMAL > or = 60 mg/dl - LO W CARDIOVASCULAR RISK <40 mg/dl - HIGH CARDIOVASCULAR RISK Normal [facility] Comment on above: Performed By: #### C MP, LIPID, TSH, T7 #### [facility] [address] [place] [address] [address] Betina Holly LDL CALC NORMAL SEE BELOW Normal [facility] Comment on above: Result Comment: <100 mg/dl OPTIMAL 100 - 129 mg/dl NEAR OR ABOVE OPTIMAL 130 - 159 mg/dl BORDERLINE HIGH 160 - 189 mg/dl HIGH >190 mg/dl VERY HIGH Performed By: #### C MP, LIPID, TSH, T7 #### [facility] [address] [place] [address] [address] Betina Holly Triglyceride [Mass/Vol] 153 mg/dL Critically high <=150 [facility] Comment on above: Performed By: #### C MP, LIPID, TSH, T7 #### [facility] [address] [place] [address] [address] Betina Holly VLDL CALC 30.6 mg/dL Normal [facility] Comment on above: Performed By: #### C MP, LIPID, TSH, T7 #### [facility] [address] [place] [address] [address] Betina Holly PROF 14(COMP METB)on 023 Albumin [Mass/Vol] 3.9 g/dL Normal 3.4-5.0 [facility] Comment on above: Performed By: #### C MP, LIPID, TSH, T7 #### [facility] [address] [place] [address] [address] Betina Holly Albumin/Globulin [Mass ratio] 1.1 {ratio} Normal [facility] Comment on above: Performed By: #### C MP, LIPID, TSH, T7 #### [facility] [address] [place] [address] [address] Betina Holly ALP [Catalytic activity/Vol] 126 U/L Critically high 46-116 [facility] Comment on above: Performed By: #### C MP, LIPID, TSH, T7 #### [facility] [address] [place] [address] [address] Betina Holly ALT [Catalytic activity/Vol] 16 U/L Normal 14-59 [facility] Comment on above: Performed By: #### C MP, LIPID, TSH, T7 #### [facility] [address] [place] [address] [address] Betina Holly Anion gap [Moles/Vol] 15.3 mmol/L Normal [facility] Comment on above: Performed By: #### C MP, LIPID, TSH, T7 #### [facility] [address] [place] [address] [address] Betina Holly AST [Catalytic activity/Vol] 11 U/L Critically low 15-37 [facility] Comment on above: Performed By: #### C MP, LIPID, TSH, T7 #### [facility] [address] [place] [address] Dr. Betina Holly Bilirubin [Mass/Vol] 0.4 mg/dL Normal 0.2-1.0 [facility] Comment on above: Performed By: #### C MP, LIPID, TSH, T7 #### [facility] [address] [place] [address] Dr. Betina Holly Calcium [Mass/Vol] 9.4 mg/dL Normal 8.5-10.1 [facility] Comment on above: Performed By: #### C MP, LIPID, TSH, T7 #### [facility] [address] [place] [address] Dr. Betina Holly Chloride [Moles/Vol] 108 mmol/L Critically high 98-107 [facility] Comment on above: Performed By: #### C MP, LIPID, TSH, T7 #### [facility] [address] [place] [address] Dr. Betina Holly CO2 [Moles/Vol] 26.4 mmol/L Normal 21.0-32.0 [facility] Comment on above: Performed By: #### C MP, LIPID, TSH, T7 #### [facility] [address] [place] [address] Dr. Betina Holly Creatinine [Mass/Vol] 0.88 mg/dL Normal 0.55-1.02 [facility] Comment on above: Performed By: #### C MP, LIPID, TSH, T7 #### [facility] [address] [place] [address] Dr. Betina Holly EGFR-AF GUAMANIAN >60 Normal >=60 [facility] Comment on above: Performed By: #### C MP, LIPID, TSH, T7 #### [facility] [address] [place] [address] Dr. Betina Holly EGFR-NON AF GUAMANIAN >60 Normal >=60 [facility] Comment on above: Performed By: #### C MP, LIPID, TSH, T7 #### [facility] [address] [place] [address] [address] Betina Holly Globulin (S) [Mass/Vol] 3.6 g/dL Normal [facility] Comment on above: Performed By: #### C MP, LIPID, TSH, T7 #### [facility] [address] [place] [address] [address] Betina Holly Glucose [Mass/Vol] 105 mg/dL Normal 74-106 [facility] Comment on above: Performed By: #### C MP, LIPID, TSH, T7 #### [facility] [address] [place] [address] [address] Betina Holly Potassium [Moles/Vol] 4.7 mmol/L Normal 3.5-5.1 [facility] Comment on above: Performed By: #### C MP, LIPID, TSH, T7 #### [facility] [address] [place] [address] Dr. Betina Holly Protein [Mass/Vol] 7.5 g/dL Normal 6.4-8.2 [facility] Comment on above: Performed By: #### C MP, LIPID, TSH, T7 #### [facility] [address] [place] [address] [address] Betina Holly Sodium [Moles/Vol] 145 mmol/L Normal 136-145 [facility] Comment on above: Performed By: #### C MP, LIPID, TSH, T7 #### [facility] [address] [place] [address] [address] Betina Holly Urea nitrogen [Mass/Vol] 15.0 mg/dL Normal 7.0-18.0 [facility] Comment on above: Performed By: #### C MP, LIPID, TSH, T7 #### [facility] [address] [place] [address] [address] Betina Holly Urea nitrogen/Creatinine [Mass ratio] 17.0 mg/mg Normal [facility] Comment on above: Performed By: #### C MP, LIPID, TSH, T7 #### [facility] [address] [place] [address] Dr. Betina Holly TSHon 03-31-2022 TSH 1.079 uIU/mL Normal 0.358-3.[address] [facility] Comment on above: Performed By: #### C MP, LIPID, TSH, T7 #### [facility] [address] [place], [place] [address] Dr. Betnia Holly WRIST LEFT 3 VWSon 2 WRIST LEFT 3 VWS [facility] Department of Radiology [address] [place] [id number] ===== Patient Name: LORRAINE SALEH : [...] stable. Electronically signed: Leanne Ferreira. Transcribed by: [email or web address], User Resident: Electronically Signed by: LEANNE FERREIRA @ 09/22/2021 03:03 PM Normal [facility] XR ANKLE LEFT 3+ VIEWS (JOSESITO [...] SatOct 09, 2019 11:31:58 PM EDT Normal [facility] Comment on above: Order Comment: [...] change is seen. IMPRESSION: Negative-appearing left foot. [facility] Workstation ID: [id number] Dictated by: KAYODE HAYNES on SatOct 09, 2019 11:32:58 PM EDT Transcribed by: ADILENE HOBSON on SatOct 09, 2019 11:45:17 PM EDT Finalized by: KAYODE HAYNES on SatOct 09, 2019 11:55:01 PM EDT Normal [facility] Comment on above: Order Comment: [...] fracture or traumatic change. Workstation ID: [id number] [facility] EXAMINATION: XR ANKL E LEFT 3+ VIEWS [...] There is some mild soft tissue swelling. [facility] Interface, Rad In Fu ji Speechq - [...] fracture or traumatic change. Workstation ID: [id number] [facility] XR FOOT LEFT 3+ VIEWS (STAND AR)on 10-09-2019 Negative-appearing l eft foot. [facility] Workstation ID: [id number] [facility] EXAMINATION: XR FOOT LEFT 3+ VIEWS (STANDARD) [...] dislocation or major degenerative change is seen. [facility], Rad In Fu ji Speechq - [...] change is seen. IMPRESSION: Negative-appearing left foot. [facility]/[employer] Workstation ID: [id number] [facility] XR Ankle 3+ Views Lefton XR Ankle 3+ Views Left Exam Date/Time: 09/06/2018 16:58 EDT Reason for Exam: Trauma Report STUDY: XR Ankle 3+ Views Left; 09/06/2018 4:58 pm INDICATION: Trauma. COMPARISON: None. ACCESSION NUMBER(S): [id number] ORDERING CLINICIAN: Selwyn Flynn FINDINGS: There is [...] pm Signed by: Shimon Nuñez MD Technologist: [facility] XR Tib/Fib Left 2 Viewon XR Tib/Fib Left 2 View Exam Date/Time: 09/06/2018 16:58 EDT Reason for Exam: Pain, Traumatic Report STUDY: XR Tib/Fib Left 2 View; 09/06/2018 4:58 pm INDICATION: Pain, Traumatic. COMPARISON: None. ACCESSION NUMBER(S): [id number] ORDERING CLINICIAN: Selwyn Flynn FINDINGS: There is no fracture, dislocation, joint space narrowing, or effusion. There is no significant soft tissue swelling. There is normal bony mineralization. IMPRESSION: No fracture FINAL REPORT Dictated: 09/06/2018 6:22 pm Shimon Nuñez MD Signed (Electronic Signature): 09/06/2018 6:22 pm Signed by: Shimon Nuñez MD Technologist: [facility] Vital Signs Date Time Vital Sign Value Performing Clinician Marco Antonioi deborah 10-09-2019 22:58-0400 Body Temperature 98.1 [degF] [facility] 10-09-2019 22:58-0400 BP Diastolic 89 mm[Hg] [facility] 10-09-2019 22:58-0400 BP Systolic 163 mm[Hg] [facility] 10-09-2019 22:58-0400 Pulse (Heart Rate) 86 /min [facility] 10-09-2019 22:58-0400 Pulse Oximetry 98 % [facility] 10-09-2019 22:58-0400 Respiratory Rate 18 /min [facility] 10-09-2019 22:53-0400 BMI (Body Mass Index) 41.02 kg/m2 Veronica Leong [facility] 10-09-2019 22:53-0400 Body [facility].54 [facility] 10-09-2019 22:53-0400 Height 179.1 cm [facility] Encounters Encounter Date Encounter Type Care Provider Facility Start: 09-20-2022 End: 09-21-2022 ambulatory [facility] Start: 04-25-2022 End: 04-26-[address] JORGE HANKINS . Facility:[facility] Start: 04-19-2022 End: 04-20-2022 ambulatory ELIEZERSPARKLE GUEVARA Facility:[facility] Start: 04-17-2022 End: 04-18-[address] JORGE HANKINS . Facility:[facility] Start: 04-06-2022 Encounter for genera l adult medical examination without abnormal findings DR JORGE HANKINS . [facility] Start: 03-31-2022 End: 04-01-[address] JORGE HANKINS . Facility:[facility] Start: 03-31-2022 End: 04-01-2022 Encounter for general adult medical examination without abnormal findings DR JORGE HANKINS . Facility:[facility] Start: 12-15-2021 End: 01-18-[address] JORGE HANKINS . Facility:[facility] Start: 04-27-2020 End: 04-27-2020 Orders Only Anni Castro Work Phone: [facility] Physician Group [facility] Start: 10-10-2019 End: 10-10-2019 Emergency department patient visit [facility] Start: 10-09-2019 End: 10-10-2019 [facility] Work Phone: [facility] Emergency Department Comment on above: [...] vaccination given Se quential Influenza Vaccine (#1) [facility] Start: 2014 Administration of he rpes zoster vaccine Zoster Vaccines (1 of 2) [facility] Start: 2014 Screening for malign ant neoplasm of colon [facility] Start: 1982 Hepatitis C antibody , confirmatory test Hepatitis C Screening [facility] Start: 1980 COVID-19 Vaccine (1 of 2) COVID-19 V accine (1 of 2) [facility] Start: 11-24-1979 HIV screening HIV Screening [facility] Start: 1976 Adolescent depressio n screening assessment Depression Screening (PHQ9) [facility] Start: 11-24-1967 History and physical examination, annual for health maintenance Wellness Visit [facility] Start: 1964 Screening for malign ant neoplasm of cervix Pap Smear [facility] Start: 1964 Screening mammography [facility] Start: 1964 Tetanus vaccination Tetanus: Every 1 0yrs [facility] Payers Date Payer Category Payer Unknown [facility] [employer] [id number] 2017-Present [id number] 2017 Unknown [id number] 2011 Unknown [id number] 1964 Unknown [id number] 0 1964 Unknown [id number] 3 1964 Unknown [id number] 3 1964 Unknown [id number] 3 1964 Unknown [id number] 3 1964 Unknown [id number] 3 1959 Unknown [id number] 1959 Unknown [id number] Social History Date Type Detail Facility Start: 10-09-2019 Tobacco smoking status NHIS Never sm oker [facility] Start: 10-09-2019 Tobacco use and exposure Never used [facility] Start: 10-09-2019 Alcohol intake Current drinke r of alcohol (finding) [facility] Start: 10-09-2019 Alcohol Comment social [facility] Sex Assigned At Not on file [facility] Exposure to SARS-CoV -2 (event) Not sure [facility] Progress note 09-20-2022 Note Date & Type [...] reaction(s): Vomiting Nausea Oxycodone-Acetaminophen Other reaction(s): other Jcn-Dsaduhnmu-Sd-Acetaminophen Rash Bjtcgntwv-Gxr-Tp-Acetaminophen Rash does fine with tylenol and sudafed [...] wrist dorsal capsulodesis (09/07/13). Overall doing well. [facility]. XR L wrist obtained today shows [...] wrist. 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 * Ankle Sprain ([place] Islander) documented in this encounter Assessments Diagnosis Sprain of left ankle, unspecified ligament, initial encounter- Primary Additional Source Comments INFORMATION SOURCE (unrecogn ized section and content) DATE CREATED AUTHOR 09/06/2018 [facility] DATE CREATED AUTHOR AUTHOR'S ORGANIZ ATION 10/15/2019 [facility] DATE CREATED AUTHOR AUTHOR'S ORGANIZ ATION 10/02/[address] [facility] DATE CREATED AUTHOR AUTHOR'S ORGANIZ ATION 04/29/2022 [facility] DATE CREATED AUTHOR AUTHOR'S ORGANIZ ATION 09/22/2022 [facility] Reason for Visit (unrecogniz ed section and content) Reason Comments Ankle Injury Veronica Leong MD - 10/09/2019 11:08 PM EDTCRosemary gomez RN - 10/09/2019 10:51 PM EDT ED Notes (unrecognized secti on and content) ED PROVIDER NOTE [facility] NAME: Lorraine Saleh AGE: 53 y.o. 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 [facility] Workstation ID: [id number] Procedures [...] BE BASED ON THE PRIMARY CLINICAL RECORDS. [employer] provides no warranty or guarantee of the accuracy or completeness of information in this document.
== END 2024-04-28 15:35 | disposition home or self-care (01) ==
LOC: MAMMO 15:34
PROVIDERS: PCP Family Medicine; Visit Provider Family Medicine
DX: Z12.31 Encounter for screening mammogram for malignant neoplasm of breast (principal); Z80.8 Family history of malignant neoplasm of other organs or systems
CPT/HCPCS: 77063; 77067

== ENCOUNTER 2024-07-01 06:42 | Outpatient (OUT) | payer OTHER, SELFPAY ==
--- NOTE | 2024-07-01 06:44 | MR_ITS ---
The [address] [address] Patient Name: LORRAINE WILSON MRN: [facility]:[id number] date: 1965 Sex: F Assigned Patient Location: MRI Current Patient Location: MRI Accession/Order Number: [id number] Exam Date: 07/01/2024 08:03 Report Date: 07/01/2024 08:08 At the request of: JORGE REYNOLDS MD Procedure: MR head/brain wo con MR head/brain wo con 07/01/2024 7:17 AM SIGN AND SYMPTOMS: ^migraine G43.509 PROTOCOL: Multiplanar multisequence MR images of the brain were obtained without IV contrast COMPARISON: None. FINDINGS: Extra axial spaces: Age appropriate. Hemorrhage: None. Ventricular system: Within normal limits. Basal cisterns: Within normal limits and not effaced. Cerebral parenchyma: Nonspecific T2 and FLAIR hyperintense foci noted in the periventricular and subcortical white matter suggesting mild chronic microvascular ischemic change. Midline shift: None.. Cerebellum: Within normal limits. Brainstem: Within normal limits. OTHER: Calvarium: Normal marrow signal. Vascular system: Satisfactory flow voids within the anterior and posterior circulation. Visualized Paranasal sinuses: Within normal limits. Mastoid effusions are present bilaterally. Visualized Orbits: Within normal limits. Visualized upper cervical spine: Within normal limits. Sella and skull base: Within normal limits. MR/MR head/brain wo con IMPRESSION: Mild chronic microvascular ischemic changes are noted. Bilateral mastoid effusions are present. No acute intracranial pathology. Impression dictated by: Chris Good M.D. 07/01/2024 8:08 AM Dictation Location: [facility]pimMULT[facility]LEY HOSPITALParticle Code Electronically authenticated by: [id number] Y Date: 07/01/2024 08:08
--- OUTSIDE RECORDS SUMMARY | 2024-07-01 06:45 | XMS_ITS | CCD ---
Author Organization [facility] Care Team Providers Care Senior Research Project Manager Name Role Phone Jorge Hankins Primary Care [...] sources) Cephalexin; Translations: [Unknown] Drug Allergy 5 [facility] (3 sources) Ciprofloxacin; Translations: [CIPROFLOXACIN] Drug Allergy 4 [facility] (1 source) Cephalexin Drug Allergy 5 [facility] (1 source) Ciprofloxacin Drug Allergy 5 [facility] (1 source) Acetaminophen / oxyCODONE; Translations: [OXYCODONE-ACETAM INOPHEN] Drug Allergy 4 [facility] Repository (1 source) [id number]- ACETAMINOPHEN; Translations: [YRT-OQBPOCRUV-ZL -ACETAMINOPHEN] Propensity to adverse reactions to drug (disorder) 5 [facility] Repository (1 source) [id number]- ACETAMINOPHEN; Translations: [ZZVCTGEFK-BIJ-TA -ACETAMINOPHEN] Propensity to adverse reactions to drug (disorder) 5 [facility] Repository Medications Current Medications Medication [...] Interpretation Reference Range Facility Follow-Upon 09-20-2022 Follow-Up [id number] Tamara Salhe 1965 F Date Provider Department Center 09/20/2022 [id number], NINFA MP ORTHO MPORTHO No family history on file Level of Service:70115 SC OFFICE/OUTPATIENT ESTABLISHED LOW MDM 20-29 MIN () Reason for Visit and Comments: Pain [136] Follow-up [888166] Normal [facility] AMYLASEon 04-25-2022 Amylase [Catalytic activity/Vol] 46 U/L Normal 25-115 [facility] Comment on above: Performed By: #### L IPA, KWADWO, LIPID ####[facility] [address] [place] [address]Dr. Betina Holly CBC AUTO DIFFon 04-25-2022 BASO # 0.1 103/ul Normal 0.0-0.1 [facility] Comment on above: Performed By: #### C BC ####[facility] [address] [place], [place] [address]Dr. Betina Holly Basophils/100 WBC (Bld) 0.7 % Normal 0.2-2.0 [facility] Comment on above: Performed By: #### C BC ####[facility] [address] [place], [place] [address]Dr. Betina Holly EO # 0.2 103/ul Normal 0.0-0.7 [facility] Comment on above: Performed By: #### C BC ####[facility] [address] [place], [place] [address]Dr. Betina Holly Eosinophils/100 WBC (Bld) 2.0 % Normal 0.9-7.0 [facility] Comment on above: Performed By: #### C BC ####[facility] [address] [place], [place] [address]Dr. Betina Holly Erythrocyte distribution width (RBC) [Ratio] 13.2 % Normal 11.0-15.0 [facility] Comment on above: Performed By: #### C BC ####[facility] [address] [place], [place] [address]Dr. Betina Holly Hematocrit (Bld) [Volume fraction] 42.6 % Normal 36.0-48.0 [facility] Comment on above: Performed By: #### C BC ####[facility] [address] [place] [address]Dr. Betina Holly Hemoglobin (Bld) [Mass/Vol] 13.6 g/dL Normal 12.0-16.0 [facility] Comment on above: Performed By: #### C BC ####[facility] [address] [place] [address]Dr. Betina Holly IG # 0.08 10e3/ul Critically high 0.00-0.03 [facility] Comment on above: Performed By: #### C BC ####[facility] [address] [place] [address]Dr. Betina Holly IG % 0.9 % Critically high 0.0-0.5 The [facility] Comment on above: Performed By: #### C BC ####[facility] [address] [place] [address]Dr. Betina Holly LYMPH # 2.5 103/ul Normal 1.2-3.8 The [facility] Comment on above: Performed By: #### C BC ####[facility] [address] [place] [address]Dr. Betina Holly Lymphocytes/100 WBC (Bld) 26.8 % Normal 20.5-60.0 [facility] Comment on above: Performed By: #### C BC ####[facility] [address] [place] [address]Dr. Betina Holly MANUAL DIFF REQ NO Normal [facility] Comment on above: Performed By: #### C BC ####[facility] [address] [place] [address]Dr. Betina Holly MCH (RBC) [Entitic mass] 27.4 pg Normal 26.7-34.0 [facility] Comment on above: Performed By: #### C BC ####[facility] [address] [place] [address]Dr. Betina Holly MCHC (RBC) [Mass/Vol] 31.9 g/dL Normal 29.9-35.2 [facility] Comment on above: Performed By: #### C BC ####[facility] [address] [place], [place] [address]Dr. Betina Holly MCV (RBC) [Entitic vol] 85.9 fL Normal 81.0-99.0 The [facility] Comment on above: Performed By: #### C BC ####[facility] [address] [place] [id number]. Betina Holly MONO # 0.5 103/ul Normal 0.3-0.8 [facility] Comment on above: Performed By: #### C BC ####[facility] [address] [place] [address]Dr. Betina Avni Monocytes/100 WBC (Bld) 5.7 % Normal 1.7-12.0 [facility] Comment on above: Performed By: #### C BC ####[facility] [address] [place] [address]Dr. Betina Holly NEUT # 5.9 103/ul Normal 1.4-6.5 [facility] Comment on above: Performed By: #### C BC ####[facility] [address] [place] [address]Dr. Betina Avni Neutrophils/100 WBC (Bld) 63.9 % Normal 43.0-75.0 [facility] Comment on above: Performed By: #### C BC ####[facility] [address] [place] [address]Dr. Betina Avni Platelet mean volume (Bld) [Entitic vol] 9.8 fL Normal 9.5-13.5 [facility] Comment on above: Performed By: #### C BC ####[facility] [address] [place] [address]Dr. Betina Avni PLT 273 103/ul Normal 150-450 The [facility] Comment on above: Performed By: #### C BC ####[facility] [address] [place] [id number]. Betina Avni RBC 4.96 106/ul Normal 4.20-5.40 [facility] Comment on above: Performed By: #### C BC ####[facility] [address] [place] [address]Dr. Betina Holly WBC 9.2 103/ul Normal 4.0-11.0 [facility] Comment on above: Performed By: #### C BC ####[facility] [address] [place] [id number]. Betina Holly LIPASEon 04-25-2022 Lipase [Catalytic activity/Vol] 71.0 U/L Critically low 73.0-393.0 [facility] Comment on above: Performed By: #### L KWADWO CARBAJAL, LIPID ####[facility] [address] [place] [id number]. Betina Holly LIPID PROFILEon 04-25-2022 CHOL-HDL RATIO NORM SEE BELOW Normal [facility] Comment on above: Result Comment: 3.3 - 4.4 LOW RISK 4.4 - 7.1 AVERAGE RISK 7.1 - 11.0 MODERATE RISK >11.0 HIGH RISK Performed By: #### L SOLOMON KWADWO, LIPID ####[facility] [address] [place] [address]Dr. Betina Holly Cholesterol [Mass/Vol] 174 mg/dL Normal <=200 [facility] Comment on above: Performed By: #### L KWADWO CARBAJAL, LIPID ####[facility] [address] [place] [address]Dr. Betina Holly Cholesterol in HDL [Mass/Vol] 48 mg/dL Normal 40-60 [facility] Comment on above: Performed By: #### L KWADWO CARBAJAL, LIPID ####[facility] [address] [place] [address]Dr. Betina Holly Cholesterol in LDL [Mass/Vol] 101.2 mg/dL Normal [facility] Comment on above: Performed By: #### L SOLOMON KWADWO, LIPID ####[facility] [address] [place] [address]Dr. Betina Holly Cholesterol.total/C holesterol in HDL [Mass ratio] 3.6 {ratio} Normal [facility] Comment on above: Performed By: #### L IPA KWADWO, LIPID ####[facility] [address] [place] [id number]. Betina Holly HDL NORMAL > or = 60 mg/dl - LO W CARDIOVASCULAR RISK <40 mg/dl - HIGH CARDIOVASCULAR RISK Normal [facility] Comment on above: Performed By: #### L KWADWO CARBAJAL, LIPID ####[facility] [address] [place], [place] [address]Qn. Betina Holly LDL CALC NORMAL SEE BELOW Normal [facility] Comment on above: Result Comment: <100 mg/dl OPTIMAL 100 - 129 mg/dl NEAR OR ABOVE OPTIMAL 130 - 159 mg/dl BORDERLINE HIGH 160 - 189 mg/dl HIGH >190 mg/dl VERY HIGH Performed By: #### L KWADWO CARBAJAL, LIPID ####[facility] [address] [place], [place] [address]Hs. Charletteleticia Holly Triglyceride [Mass/Vol] 124 mg/dL Normal <=150 [facility] Comment on above: Performed By: #### L KWADWO CARBAJAL, LIPID ####[facility] [address] [place], [place] [address]Mt. Betina Holly VLDL CALC 24.8 mg/dL Normal [facility] Comment on above: Performed By: #### L KWADWO CARBAJAL, LIPID ####[facility] [address] [place], [place] [address]Fn. Betina Holly US SINGLE QUAD RT UPPERon [...] JAZMINE TILLEY Date: 2022-04-25 11:05 Normal [facility] XR FOOT GOOD MIN 3 VIEWSon XR [...] JAZMINE TILLEY Date: 2022-04-19 16:19 Normal [address] [facility] MAMM SCREEN 3D GOOD CADon 04-17-2022 MG MAMM SCREEN 3D GOOD CAD Patient: LORRAINE SALEH Exam Date: 04/17/2022 : 1965 Gender:F Ordering : DR JORGE HANKINS . Admission #: [id number] Family : Order #: [id number] CLICK HERE TO VIEW EXAM RADIOLOGY REPORT [...] esophageal cancer at age 82. LOCATION: The [facility] BREAST COMPOSITION: Heterogeneously dense,which may obscure small [...] MD on 04/18/2022 at 08:33 Normal The [facility] INSULINon 04-02-2022 Insulin 13.7 uIU/mL Normal 2.6-24.9 [facility] Comment on above: Performed By: #### I NSULIN ####[facility] [address] [place], [place] [address]LnDr. Betina Holly CBC AUTO DIFFon 03-31-2022 BASO # 0.1 103/ul Normal 0.0-0.1 [facility] Comment on above: Performed By: #### C BC #### [facility] [address] [place] [address] [address] Betina Holly Basophils/100 WBC (Bld) 0.7 % Normal 0.2-2.0 [facility] Comment on above: Performed By: #### C BC #### [facility] [address] [place] [address] [address] Betina Holly EO # 0.1 103/ul Normal 0.0-0.7 [facility] Comment on above: Performed By: #### C BC #### [facility] [address] [place] [address] [address] Betina Holly Eosinophils/100 WBC (Bld) 1.7 % Normal 0.9-7.0 [facility] Comment on above: Performed By: #### C BC #### [facility] [address] [place] [address] [address] Betina Holly Erythrocyte distribution width (RBC) [Ratio] 13.3 % Normal 11.0-15.0 [facility] Comment on above: Performed By: #### C BC #### [facility] [address] [place] [address] [address] Betina Holly Hematocrit (Bld) [Volume fraction] 40.5 % Normal 36.0-48.0 [facility] Comment on above: Performed By: #### C BC #### [facility] [address] [place] [address] [address] Betina Holly Hemoglobin (Bld) [Mass/Vol] 13.1 g/dL Normal 12.0-16.0 [facility] Comment on above: Performed By: #### C BC #### [facility] [address] [place] [address] [address] Betnia Holly IG # 0.05 10e3/ul Critically high 0.00-0.03 [facility] Comment on above: Performed By: #### C BC #### [facility] [address] [place] [address] Dr. Betina Holly IG % 0.6 % Critically high 0.0-0.5 [facility] Comment on above: Performed By: #### C BC #### [facility] [address] [place] [address] Dr. Betina Holly LYMPH # 2.2 103/ul Normal 1.2-3.8 [facility] Comment on above: Performed By: #### C BC #### [facility] [address] [place] [address] Dr. Betina Holly Lymphocytes/100 WBC (Bld) 27.2 % Normal 20.5-60.0 [facility] Comment on above: Performed By: #### C BC #### [facility] [address] [place] [address] Dr. Betina Holly MANUAL DIFF REQ NO Normal [facility] Comment on above: Performed By: #### C BC #### [facility] [address] [place] [address] Dr. Betina Holly MCH (RBC) [Entitic mass] 28.1 pg Normal 26.7-34.0 [facility] Comment on above: Performed By: #### C BC #### [facility] [address] [place] [address] Dr. Betina Holly MCHC (RBC) [Mass/Vol] 32.3 g/dL Normal 29.9-35.2 [facility] Comment on above: Performed By: #### C BC #### [facility] [address] [place] [address] Dr. Betina Holly MCV (RBC) [Entitic vol] 86.7 fL Normal 81.0-99.0 [facility] Comment on above: Performed By: #### C BC #### [facility] [address] [place] [address] Dr. Betina Holly MONO # 0.5 103/ul Normal 0.3-0.8 [facility] Comment on above: Performed By: #### C BC #### [facility] [address] [place] [address] Dr. Betina Holly Monocytes/100 WBC (Bld) 6.0 % Normal 1.7-12.0 [facility] Comment on above: Performed By: #### C BC #### [facility] [address] [place] [address] Dr. Betina Holly NEUT # 5.2 103/ul Normal 1.4-6.5 [facility] Comment on above: Performed By: #### C BC #### [facility] [address] [place] [address] Dr. Betina Holly Neutrophils/100 WBC (Bld) 63.8 % Normal 43.0-75.0 [facility] Comment on above: Performed By: #### C BC #### [facility] [address] [place] [address] Dr. Betina Holly Platelet mean volume (Bld) [Entitic vol] 9.8 fL Normal 9.5-13.5 [facility] Comment on above: Performed By: #### C BC #### [facility] [address] [place] [address] Dr. Betina Holly PLT 226 103/ul Normal 150-450 The [facility] Comment on above: Performed By: #### C BC #### [facility] [address] [place] [address] Dr. Betina Holly RBC 4.67 106/ul Normal 4.20-5.40 The [facility] Comment on above: Performed By: #### C BC #### [facility] [address] [place] [address] Dr. Betina Holly WBC 8.2 103/ul Normal 4.0-11.0 The [facility] Comment on above: Performed By: #### C BC #### [facility] [address] [place] [address] Dr. Betina Holly FREE THYROXINE INDEX T7on FTI 2.18 Normal 1.30-4.50 [facility] Comment on above: Performed By: #### C MP, LIPID, TSH, T7 #### [facility] [address] [place] [address] [address] Betina Holly T3U 37.0 % Normal 30.0-39.0 [facility] Comment on above: Performed By: #### C MP, LIPID, TSH, T7 #### [facility] [address] [place] [address] [address] Betina Holly T4 [Mass/Vol] 5.90 ug/dL Normal 4.80-13.[address] [facility] Comment on above: Performed By: #### C MP, LIPID, TSH, T7 #### [facility] [address] [place] [address] [address] Betina Holly GLYCOHEMOGLOBIN A1Con 2022 ADA RECOMMENDATION SEE BELOW Normal [facility] Comment on above: Result Comment: ADA RECOMMENDED LIMIT 4.0 - 6.0 ADA THERAPEUTIC TARGET < 7.0 ACTION SUGGESTED > 7.0 Performed By: #### A 1C #### [facility] [address] [place] [address] [address] Betina Holly Glucose [Mass/Vol] 114 mg/dL Normal [facility] Comment on above: Performed By: #### A 1C #### [facility] [address] [place] [address] [address] Betina Holly HbA1c (Bld) [Mass fraction] 5.6 % Normal 4.5-6.2 [facility] Comment on above: Performed By: #### A 1C #### [facility] [address] [place] [address] [address] Betina Holly IRONon 03-31-2022 Iron [Mass/Vol] 72.0 ug/dL Normal 50.0-170.0 [facility] Comment on above: Performed By: #### I MARCE #### [facility] [address] [place] [address] [address] Betina Holly LIPID PROFILEon 03-31-2022 CHOL-HDL RATIO NORM SEE BELOW Normal [facility] Comment on above: Result Comment: 3.3 - 4.4 LOW RISK 4.4 - 7.1 AVERAGE RISK 7.1 - 11.0 MODERATE RISK >11.0 HIGH RISK Performed By: #### C MP, LIPID, TSH, T7 #### [facility] [address] [place] [address] [address] Betina Holly Cholesterol [Mass/Vol] 167 mg/dL Normal <=200 [facility] Comment on above: Performed By: #### C MP, LIPID, TSH, T7 #### [facility] [address] [place] [address] [address] Betina Holly Cholesterol in HDL [Mass/Vol] 43 mg/dL Normal 40-60 [facility] Comment on above: Performed By: #### C MP, LIPID, TSH, T7 #### [facility] [address] [place] [address] [address] Betina Holly Cholesterol in LDL [Mass/Vol] 93.4 mg/dL Normal [facility] Comment on above: Performed By: #### C MP, LIPID, TSH, T7 #### [facility] [address] [place] [address] [address] Betina Holly Cholesterol.total/C holesterol in HDL [Mass ratio] 3.9 {ratio} Normal [facility] Comment on above: Performed By: #### C MP, LIPID, TSH, T7 #### [facility] [address] [place] [address] [address] Betina Holly HDL NORMAL > or = 60 mg/dl - LO W CARDIOVASCULAR RISK <40 mg/dl - HIGH CARDIOVASCULAR RISK Normal [facility] Comment on above: Performed By: #### C MP, LIPID, TSH, T7 #### [facility] [address] [place] [address] [address] Betina Holly LDL CALC NORMAL SEE BELOW Normal [facility] Comment on above: Result Comment: <100 mg/dl OPTIMAL 100 - 129 mg/dl NEAR OR ABOVE OPTIMAL 130 - 159 mg/dl BORDERLINE HIGH 160 - 189 mg/dl HIGH >190 mg/dl VERY HIGH Performed By: #### C MP, LIPID, TSH, T7 #### [facility] [address] [place] [address] [address] Betina Holly Triglyceride [Mass/Vol] 153 mg/dL Critically high <=150 The [facility] Comment on above: Performed By: #### C MP, LIPID, TSH, T7 #### [facility] [address] [place] [address] [address] Betina Holly VLDL CALC 30.6 mg/dL Normal [facility] Comment on above: Performed By: #### C MP, LIPID, TSH, T7 #### [facility] [address] [address] [address] Betina Holly PROF 14(COMP METB)on 023 Albumin [Mass/Vol] 3.9 g/dL Normal 3.4-5.0 [facility] Comment on above: Performed By: #### C MP, LIPID, TSH, T7 #### [facility] [address] [place] [address] [address] Betina Holly Albumin/Globulin [Mass ratio] 1.1 {ratio} Normal [facility] Comment on above: Performed By: #### C MP, LIPID, TSH, T7 #### [facility] [address] [place] [address] [address] Betina Holly ALP [Catalytic activity/Vol] 126 U/L Critically high 46-116 [facility] Comment on above: Performed By: #### C MP, LIPID, TSH, T7 #### [facility] [address] [place] [address] [address] Betina Holly ALT [Catalytic activity/Vol] 16 U/L Normal 14-59 [facility] Comment on above: Performed By: #### C MP, LIPID, TSH, T7 #### [facility] [address] [place] [address] [address] Betina Holly Anion gap [Moles/Vol] 15.3 mmol/L Normal [facility] Comment on above: Performed By: #### C MP, LIPID, TSH, T7 #### [facility] [address] [address] [address] Betina Holly AST [Catalytic activity/Vol] 11 U/L Critically low 15-37 [facility] Comment on above: Performed By: #### C MP, LIPID, TSH, T7 #### [facility] [address] [place] [address] Dr. Betina Holly Bilirubin [Mass/Vol] 0.4 mg/dL Normal 0.2-1.0 [facility] Comment on above: Performed By: #### C MP, LIPID, TSH, T7 #### [facility] [address] [place] [address] Dr. Betina Holly Calcium [Mass/Vol] 9.4 mg/dL Normal 8.5-10.1 [facility] Comment on above: Performed By: #### C MP, LIPID, TSH, T7 #### [facility] [address] [place] [address] Dr. Betina Holly Chloride [Moles/Vol] 108 mmol/L Critically high 98-107 [facility] Comment on above: Performed By: #### C MP, LIPID, TSH, T7 #### [facility] [address] [place] [address] Dr. Betina Holly CO2 [Moles/Vol] 26.4 mmol/L Normal 21.0-32.0 [facility] Comment on above: Performed By: #### C MP, LIPID, TSH, T7 #### [facility] [address] [place] [address] Dr. Betina Holly Creatinine [Mass/Vol] 0.88 mg/dL Normal 0.55-1.02 [facility] Comment on above: Performed By: #### C MP, LIPID, TSH, T7 #### [facility] [address] [place] [address] Dr. Betina Holly EGFR-AF PERUVIAN >60 Normal >=60 [facility] Comment on above: Performed By: #### C MP, LIPID, TSH, T7 #### [facility] [address] [place] [address] Dr. Betina Holly EGFR-NON AF PERUVIAN >60 Normal >=60 [facility] Comment on above: Performed By: #### C MP, LIPID, TSH, T7 #### [facility] [address] [address] [address] Betina Holly Globulin (S) [Mass/Vol] 3.6 g/dL Normal [facility] Comment on above: Performed By: #### C MP, LIPID, TSH, T7 #### [facility] [address] [address] [address] Betina Holly Glucose [Mass/Vol] 105 mg/dL Normal 74-106 [facility] Comment on above: Performed By: #### C MP, LIPID, TSH, T7 #### [facility] [address] [address] [address] Betina Holly Potassium [Moles/Vol] 4.7 mmol/L Normal 3.5-5.1 [facility] Comment on above: Performed By: #### C MP, LIPID, TSH, T7 #### [facility] [address] [place] [address] Dr. Betina Holly Protein [Mass/Vol] 7.5 g/dL Normal 6.4-8.2 [facility] Comment on above: Performed By: #### C MP, LIPID, TSH, T7 #### [facility] [address] [address] [address] Betina Holly Sodium [Moles/Vol] 145 mmol/L Normal 136-145 [facility] Comment on above: Performed By: #### C MP, LIPID, TSH, T7 #### [facility] [address] [address] [address] Betina Holly Urea nitrogen [Mass/Vol] 15.0 mg/dL Normal 7.0-18.0 [facility] Comment on above: Performed By: #### C MP, LIPID, TSH, T7 #### [facility] [address] [address] [address] Betina Holly Urea nitrogen/Creatinine [Mass ratio] 17.0 mg/mg Normal [facility] Comment on above: Performed By: #### C MP, LIPID, TSH, T7 #### [facility] [address] [place] [address] Dr. Betina Holly TSHon 03-31-2022 TSH 1.079 uIU/mL Normal 0.358-3.740 [facility] Comment on above: Performed By: #### C MP, LIPID, TSH, T7 #### [facility] [address] [place], [place] [address] Dr. Betina Holly WRIST LEFT 3 VWSon 2 WRIST LEFT 3 VWS [facility] Department of Radiology [address] [place] [id number] ===== Patient Name: LORRAINE SALEH : 1965 Sex: F Age: Race: White Pt. Location: Patient Status: O Ordered Date: 09/22/2021 12:55:00 PM Completed Date: 09/22/2021 01:40 PM Requesting Provider: LOUIS MURPHY Attending Provider: LOUIS MURPHY Report Copy To: Signs & Symptoms: M25.532 Pain in left wrist I10 History: [place]edar Comments: Exam: WRIST LEFT 3 VWS ===== [...] stable. Electronically signed: Leanne Ferreira. Transcribed by: [email or web address], User Resident: Electronically Signed by: LEANNE FERREIRA @ 09/22/2021 03:03 PM Normal [facility] XR ANKLE LEFT 3+ VIEWS [...] SatOct 09, 2019 11:31:58 PM EDT Normal [facility] Comment on above: Order Comment: Injur [...] is seen. IMPRESSION: Negative-appearing left foot. [facility] Workstation ID: [id number] Dictated by: KAYODE HAYNES on SatOct 09, 2019 11:32:58 PM EDT Transcribed by: ADILENE HOBSON on SatOct 09, 2019 11:45:17 PM EDT Finalized by: KAYODE HAYNES on SatOct 09, 2019 11:55:01 PM EDT Normal [facility] Comment on above: Order Comment: Injur [...] fracture or traumatic change. Workstation ID: [id number] [facility] EXAMINATION: XR ANKL E LEFT [...] There is some mild soft tissue swelling. [facility] Interface, Rad In Fu ji [...] fracture or traumatic change. Workstation ID: [id number] [facility] XR FOOT LEFT 3+ VIEWS (STAND AR)on 10-09-2019 Negative-appearing l eft foot. [facility] Workstation ID: [id number] [facility] EXAMINATION: XR FOOT LEFT 3+ [...] is seen. IMPRESSION: Negative-appearing left foot. [facility] Workstation ID: [id number] [facility] XR Ankle 3+ Views Lefton XR Ankle 3+ Views Left Exam Date/Time: 09/06/2018 16:58 EDT Reason for Exam: Trauma Report STUDY: XR Ankle 3+ Views Left; 09/06/2018 4:58 pm INDICATION: Trauma. COMPARISON: None. ACCESSION NUMBER(S): [id number] ORDERING CLINICIAN: Selwyn Flynn FINDINGS: There is [...] pm Signed by: Shimon Nuñez MD Technologist: [facility] XR Tib/Fib Left 2 Viewon XR Tib/Fib Left 2 View Exam Date/Time: 09/06/2018 16:58 EDT Reason for Exam: Pain, Traumatic Report STUDY: XR Tib/Fib Left 2 View; 09/06/2018 4:58 pm INDICATION: Pain, Traumatic. COMPARISON: None. ACCESSION NUMBER(S): [id number] ORDERING CLINICIAN: Selwyn Flynn FINDINGS: There is no fracture, dislocation, joint space narrowing, or effusion. There is no significant soft tissue swelling. There is normal bony mineralization. IMPRESSION: No fracture FINAL REPORT Dictated: 09/06/2018 6:22 pm Shimon Nuñez MD Signed (Electronic Signature): 09/06/2018 6:22 pm Signed by: Shimon Nuñez MD Technologist: [facility] Vital Signs Date Time Vital Sign Value Performing Clinician Marco Antonioi deborah 10-09-2019 22:58-0400 Body Temperature 98.1 [degF] [facility] 10-09-2019 22:58-0400 BP Diastolic 89 mm[Hg] [facility] 10-09-2019 22:58-0400 BP Systolic 163 mm[Hg] [facility] 10-09-2019 22:58-0400 Pulse (Heart Rate) 86 /min [facility] 10-09-2019 22:58-0400 Pulse Oximetry 98 % [facility] 10-09-2019 22:58-0400 Respiratory Rate 18 /min [facility] 10-09-2019 22:53-0400 BMI (Body Mass Index) 41.02 kg/m2 Veronica Leong [facility] 10-09-2019 22:53-0400 [facility] 10-09-2019 22:53-0400 Height 179.1 cm [facility] Encounters Encounter Date Encounter Type Care Provider Facility Start: 09-20-2022 End: 09-21-2022 ambulatory NINFA [facility] Start: 04-25-2022 End: 04-26-[address] JORGE HANKINS . Facility[facility] Start: 04-19-2022 End: 04-20-2022 ambulatory ELIEZERSPARKLE GUEVARA Facility:[facility] Start: 04-17-2022 End: 04-18-[address] JORGE HANKINS . Facility[facility] Start: 04-06-2022 Encounter for genera l adult medical examination without abnormal findings DR JORGE HANKINS . [facility] Start: 03-31-2022 End: 04-01-[address] JORGE HANKINS . Facility[facility] Start: 03-31-2022 End: 04-01-2022 Encounter for general adult medical examination without abnormal findings DR JORGE HANKINS . Facility:[facility] Start: 12-15-2021 End: 01-18-[address] JORGE HANKINS . Facility[facility] Start: 04-27-2020 End: 04-27-2020 Orders Only Anni Castro Work Phone: [facility] Start: 10-10-2019 End: 10-10-2019 Emergency department patient visit [facility] Start: 10-09-2019 End: 10-10-2019 [facility] Work Phone: [facility] Comment on above: Sprain of left ankle , unspecified ligament, initial encounter (Primary Dx) Procedures Date Procedure Procedure Detail Performing Clinician Start: 10-09-2019 X-ray of left ankle Dewey Leong Work Phone: Start: 10-09-2019 X-ray of left foot Con guan Dang Work Phone: Plan of Treatment Date Care Activity Detail Author Start: 10-20-2019 Influenza vaccination given Se quential Influenza Vaccine (#1) [facility] Start: 2014 Administration of he rpes zoster vaccine Zoster Vaccines (1 of 2) [facility] Start: 2014 Screening for malign ant neoplasm of colon [facility] Start: 1982 Hepatitis C antibody , confirmatory test Hepatitis C Screening [facility] Start: 1980 COVID-19 Vaccine (1 of 2) COVID-19 V accine (1 of 2) [facility] Start: 11-24-1979 HIV screening HIV Screening [facility] Start: 1976 Adolescent depressio n screening assessment Depression Screening (PHQ9) [facility] Start: 11-24-1967 History and physical examination, annual for health maintenance Wellness Visit [facility] Start: 1964 Screening for malign ant neoplasm of cervix Pap Smear [facility] Start: 1964 Screening mammography [facility] Start: 1964 Tetanus vaccination Tetanus: Every 1 0yrs [facility] Payers Date Payer Category Payer Unknown [facility] [id number] 2017-Present [id number] 2017 Unknown [id number] 2011 Unknown [id number] 1965 Unknown [id number] 0 1965 Unknown [id number] 3 1964 Unknown [id number] 3 1964 Unknown [id number] 3 1964 Unknown [id number] 3 1964 Unknown [id number] 3 1959 Unknown [id number] 1959 Unknown [id number] Social History Date Type Detail Facility Start: 10-09-2019 Tobacco smoking status NHIS Never sm oker [facility] Start: 10-09-2019 Tobacco use and exposure Never used [facility] Start: 10-09-2019 Alcohol intake Current drinke r of alcohol (finding) [facility] Start: 10-09-2019 Alcohol Comment social [facility] Sex Assigned At Not on file [facility] Exposure to SARS-CoV -2 (event) Not sure [facility] Progress note 09-20-2022 Note Date [...] reaction(s): Vomiting Nausea Oxycodone-Acetaminophen Other reaction(s): other Bsd-Nxgzxvocv-Lu-Acetaminophen Rash Ntvwsdxle-Key-Hu-Acetaminophen Rash does fine with tylenol and sudafed [...] wrist dorsal capsulodesis (09/07/13). Overall doing well. [facility]. XR L wrist obtained today shows [...] wrist. 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 * Ankle Sprain (Czech) documented in this encounter Assessments Diagnosis Sprain of left ankle, unspecified ligament, initial encounter- Primary Additional Source Comments INFORMATION SOURCE (unrecogn ized section and content) DATE CREATED AUTHOR 09/06/2018 [facility] DATE CREATED AUTHOR AUTHOR'S ORGANIZ ATION 10/15/2019 [facility] DATE CREATED AUTHOR AUTHOR'S ORGANIZ ATION 10/02/2021 [facility] DATE CREATED AUTHOR AUTHOR'S ORGANIZ ATION 04/29/2022 [facility] DATE CREATED AUTHOR AUTHOR'S ORGANIZ ATION 09/22/2022 [facility] Reason for Visit (unrecogniz ed section and content) Reason Comments Ankle Injury Veronica Leong MD - 10/09/2019 11:08 PM EDTCRosemary gomez RN - 10/09/2019 10:51 PM EDT ED Notes (unrecognized secti on and content) ED PROVIDER NOTE [facility] NAME: Lorraine Saleh AGE: 53 y.o. : 1965 VISIT DATE: 10/09/2019 CSN: [id number] PCP: Jorge Hankins MD Chief Complaint Patient presents with Ankle Injury Ankle Injury Pt p/w fall. 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 Was coming out of her 3 [...] file Gets together: Not on file Attends roman catholic service: Not on file Active member of [...] (Standard) Final Result Negative-appearing left foot. [facility] Workstation ID: [id number] Procedures MDM Number [...] BE BASED ON THE PRIMARY CLINICAL RECORDS. [employer] provides no warranty or guarantee of the accuracy or completeness of information in this document.
== END 2024-07-01 06:43 | disposition home or self-care (01) ==
LOC: MRI 06:42
PROVIDERS: PCP Family Medicine; Visit Provider Family Medicine
DX: G43.909 Migraine, unspecified, not intractable, without status migrainosus (principal); M25.48 Effusion, other site
CPT/HCPCS: 70551

== ENCOUNTER 2024-07-21 11:57 | Outpatient (OUT) | payer OTHER, SELFPAY ==
--- OUTSIDE RECORDS SUMMARY | 2024-06-24 10:11 | XMS_ITS ---
Author Organization [facility] in [place] Address [address] [place] [address] Care Team Providers Care Senior Manager Creative Services Name Role Phone RJ HANKINS MD Primary Care Provider Rj Hankins Unavailable [phone] REASON FOR VISIT MRI- Problems Problem Type SNOMED Code ICD Code Onset Dates Problem Status W/U Status Risk Notes Problem Migraine (26268036) Migraine (G43.909) Active confirmed Encounters Encounter Location Date Provider Diagnosis [facility] [address] [place] [address] 06/24/2024 Rj Nhi Migraine G43.909 Assessments Encounter Date Diagnosis (ICD Code) Assessment Notes Treatment Notes Treatment Clinical Notes Section Notes 06/24/2024 Migraine (ICD-10 - G43.909) Plan Of Treatment Pending Test Test Name Order Date MRI BRAIN WO CON 06/24/2024 Progress Notes * Maribell SALEH MDOB:[birth year] (58 yo F)Acc No.[id number]:06/24/2024 Patient: Maribell SOLITARIO :1965 A ge:58 Y S ex:Female Address:[address] [place], [address] Subjective: * Chief Complaints: * M RI- * Medical History: * Surgical History: * Hospitalization/Major Diagno stic Procedure: * Medications: Objective: * Vitals: * Physical Examination: Assessment: * Assessment: 1. M igraine - G43.909 (Primary) Plan: * Treatment: * Procedure Codes: * true * Date: Generated for Bernadette zafar/Mitch/Joce on: 0 07/21/2024 12:03 PM EDT
--- OUTSIDE RECORDS SUMMARY | 2024-07-01 06:10 | XMS_ITS ---
Author Organization [facility] in [place] Address [address] [place] [address] Care Team Providers Care Behavioral Therapy Coordinator Name Role Phone RJ HANKINS MD Primary Care Provider Rj Hankins Unavailable [phone] Reason For Referral Diagnosis 1 Mastoiditis (H70.90) Referral Organization [facility] Referring Provider First Name Rj Referring Provider Last Name Nhi Referring Provider [facility] icine Referred Provider Florecita Teague Referred Provider Specialty Otolaryngolo gy Referral Priority Routine REASON FOR VISIT MRI Encounters Encounter Location Date Provider Diagnosis [facility] [address] [place] [address] 07/01/2024 Rj Hankins Mastoiditis H70.90 Assessments Encounter Date Diagnosis (ICD Code) Assessment Notes Treatment Notes Treatment Clinical Notes Section Notes 07/01/2024 Mastoiditis (ICD-10 - H70.90) Plan Of Treatment Referrals Referral Date Details 07/02/2024 07/02/2024, Florecita petty Progress Notes * Maribell WILSON MDOB:[birth year] (58 yo F)Acc No.[id number]:07/01/2024 Patient: Maribell SOLITARIO :1965 A ge:58 Y S ex:Female Address:[address] [place], [address] Subjective: * Chief Complaints: * M RI * Medical History: * Surgical History: * Hospitalization/Major Diagno stic Procedure: * Medications: Objective: * Vitals: * Physical Examination: Assessment: * Assessment: 1. M astoiditis - H70.90 (Primary) Plan: * Treatment: * Procedure Codes: * true * Date: Generated for Bernadette zafar/Mitch/Joce on: 0 07/21/2024 12:04 PM EDT Consultation Request Notes Referral Date Referring Provider Referred Provider Not es 07/02/2024 Rj Hankins Hilary
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
--- OUTSIDE RECORDS SUMMARY | 2024-07-21 07:00 | XMS_ITS ---
Author Organization [facility] in [place] Address [address] [place] [address] Care Team Providers Care Board Mill Supervisor Name Role Phone RODOLFO WALTON, RJ Primary Care Provider Rj Reynolds Unavailable [phone] Allergies Allergen (clinical drug ingredient) Drug/Non Drug Allergy documented on EMR Reaction Allergy Type Onset Date Status Cipro (ciprofloxacin) Unknown Drug Allergy Active Keflex (cephalexin) Unknown Drug Allergy Active REASON FOR VISIT jaw- was told TMJ- since no teeth or jaw bone cant have the retainer, Headaches- med isn't working wants to switch meds- pain makes her vomit, Also loss of appetite- said today hasn't eaten anything Medications Medication SIG (Take, Route, Frequency, Duration) Notes Start Date End Date Status Mirtazapine 30 MG TAKE 2 TABLET BY SHABBIR TH EVERY NIGHT AT BEDTIME Orally Once a day for 90 days Active Simvastatin 20 MG TAKE ONE TABLET BY M OUTH EVERY EVENING for 90 Active Meloxicam 15 MG 1 tablet Orally Once a day for 30 days 03/12/2024 Active Topiramate 100 MG 1 tablet Orally Once a day for 90 days Active Topiramate 50 MG 1 tablet Orally Once a day- take with 100mg tablet for 90 days 06/22/2024 Active Levothyroxine Sodium 150 MCG TAKE 1 TABL ET BY MOUTH EVERY MORNING ON AN EMPTY STOMACH for 90 Active Acetaminophen-Codeine 300-30 MG 1 tablet as needed Orally every 6 hrs for 7 days 02/27/2024 Active buPROPion HCl ER (XL) 300 MG TAKE 1 TABL ET BY MOUTH EVERY MORNING for 90 Active Lisinopril 10 MG TAKE 1 TABLET BY SHABBIR TH DAILY for 90 Active Imitrex 100 MG 1 tablet at least 2 hours between doses as needed Orally Twice a day 07/21/2024 Active Social History Tobacco Use: Social History Observation Description Date Details (start date - stop date) Never Smoker NA - NA Tobacco Control (Standard) Question Answer Notes Tobacco use: Nonsmoker Section Notes: Never Smoked Vital Signs Weight 280.6 lbs 07/21/2024 Height 70.5 in 07/21/2024 Blood pressure systolic 130 mm Hg 07/22/19 25 Blood pressure diastolic 84 mm Hg 025 BMI 39.69 kg/m2 07/21/2024 Encounters Encounter Location Date Provider Diagnosis [facility] [address] [place] [address] 07/21/2024 Rj Reynolds Migraine G43.909 Assessments Encounter Date Diagnosis (ICD Code) Assessment Notes Treatment Notes Treatment Clinical Notes Section Notes 07/21/2024 Migraine (ICD-10 - G43.909) Plan Of Treatment Medication Medication Name Sig Start Date Stop Date Notes Imitrex 100 MG 1 tablet at least 2 hours between doses as needed Orally Twice a day 07/21/2024 Pending Test Test Name Order Date CBC AUTO DIFF 07/21/2024 CRP 07/21/2024 SED RATE WESTERGREN 07/21/2024 Progress Notes * Maribell SALEH MDOB:[birth year] (58 yo F)Acc No.[id number]:07/21/2024 UNLOCKED PROGRESS NOTE Progress Note Patient: Maribell SOLITARIO [facility] Katey :1965 A ge:58 Y S ex:Female Date:07/21/2024 Address:[address] [facility] Pcp:RJ REYNOLDS MD Check In:10:43 AM ESTCheck O ut:11:49 AM EST Subjective: * Chief Complaints: * 1 . jaw- was told TMJ- since no teeth or jaw bone cant have the retainer. 2. Headaches- med isn't working wants to switch meds- pain makes her vomit. 3. Also loss of appetite- said today hasn't eaten anything. * HPI: G eneral: Miles left tempal tendenrss - needs ESR -= has rick collins. * ROS: E ENT: hearing changes d enies. v isual changes d enies.?non-healing mouth sores d enies. s wollen glands or neck lumps d enies. h oarseness d enies. s ore throat d enies. d ifficulty swallowing d enies. n ose bleeds d enies. n leobardo congestion d enies. e ar ache d enies. e ar discharge?denies. r inging in ears d enies. l ight sensitivity d enies. e ye pain d enies. b lurring d enies. e ye irritation d enies. d ouble vision d enies.?vision loss d enies. G eneral/Constitutional: Sweats: D enies. F atigue d enies. S leep problems d enies. A norexia d enies. M alaise d enies. W eight loss d enies.?Fatigue or Weakness d enies. F ever or Chills d enies. C ardiovascular: Shortness of Breath w/lying flat d enies. L ightheadedness/dizziness d enies. C hest tightness/ heavy pressure d enies. S welling of legs, ankles, or feet d enies. W aking up with shortness of breath d enies. C hest pain denies. P alpitations d enies. W eight gain d enies. R espiratory: Chronic or frequent cough d enies. C oughing up blood?denies. D ifficulty breathing d enies. P roductive cough d enies. S noring?denies. S hortness of breath that awakens from sleep (PND) d enies. C hest pain d enies. S putum production d enies. W heezing d enies. M usculoskeletal: Joint pain d enies. J oint Fluid d enies. B ack pain d enies. K nee pain d enies. N katia pain d enies. J oint Stiffness d enies. M uscle cramps d enies. W eakness of muscles d enies. A rthritis d enies. M uscle aches d enies. P ain in shoulder(s) d enies. S wollen joints d enies. * Medical History: P lantar fascial fibromatosis of left foot, Ingrowing nail, Onychomycosis, Cellulitis of left toe, Cutaneous abscess of left foot, type II diabetes, Myalgia, Hyperlipidemia, Disc disorder of lumbosacral region, Asthma, Cervical disc disease, Anxiety. * Surgical History: C ataract Extraction Lt/Rt 03/06/2022. * Hospitalization/Major Diagno stic Procedure: D enies Past Hospitalization. * Family History: F ather: . M other: alive. B rother(s): alive, Cancer- tongue/lymphnodes. S ister(s): , Liver disease, Kidney Failure, heart failure. S on(s): alive. 1 brother(s) , 1 sister(s) . 1 son(s) - healthy. . * Social History: T obacco Use: T obacco Control (Standard) T obacco use: N onsmoker N ever Smoked. * Medications: T aking Acetaminophen-Codeine 300-30 MG Tablet 1 tablet as needed Orally every 6 hrs , Taking buPROPion HCl ER (XL) 300 MG Tablet Extended Release 24 Hour TAKE 1 TABLET BY MOUTH EVERY MORNING , Taking Levothyroxine Sodium 150 MCG Tablet TAKE 1 TABLET BY MOUTH EVERY MORNING ON AN EMPTY STOMACH , Taking Lisinopril 10 MG Tablet TAKE 1 TABLET BY MOUTH DAILY , Taking Meloxicam 15 MG Tablet 1 tablet Orally Once a day , Taking Mirtazapine 30 MG Tablet TAKE 2 TABLET BY MOUTH EVERY NIGHT AT BEDTIME Orally Once a day , Taking Simvastatin 20 MG Tablet TAKE ONE TABLET BY MOUTH EVERY EVENING , Taking Topiramate 100 MG Tablet 1 tablet Orally Once a day , Taking Topiramate 50 MG Tablet 1 tablet Orally Once a day- take with 100mg tablet , Medication List reviewed and reconciled with the patient * Allergies: K eflex (cephalexin): Allergy, Cipro (ciprofloxacin): Allergy. Objective: * Vitals: W t:280.6lbs, Ht: 70.5 in, BP:130/84mm Hg, BMI:39.69Index, Ht-cm: 179.07 cm, Wt- k.28 kg. * Examination: P hysical Exam: GENERAL: w ell developed, well nourished, in no acute distress. HEAD: n ormocephalic/atraumatic. EYES: p upils equal, round and reactive to light, conjunctivae and sclerae normal. EARS: n o deformity or lesion of external ear, canals and TM appear normal bilaterally, TM's intact, not inflamed with normal light reflex, hearing grossly normal to conversational speech. NOSE: n o deformity, discharge, inflammation, or lesions.? MOUTH: m ucous membranes moist, normal oropharynx and posterior pharynx without lesions or exudates, tongue normal, dentition normal. NECK: n katia supple, no masses or palpable cervical nodes, trachea midline, thyroid without nodules, masses, tenderness, or enlargement. CHEST: n o chest wall deformity, no chest wall tenderness.? LUNGS: n ormal respiratory effort and clear to auscultation, no wheezes, rales, or rhonchi, good air exchange. CARDIO: r egular rate and rhythm, normal S1 and S2, nor murmur, rub, or gallop. PULSES: n ormal capillary refill. ABDOMEN: s oft, non-distended, non-tender, no masses. MUSCULOSKELETAL: n o deformity or scoliosis noted, normal range of motion, joints normal, no erythema, edema, effusion, or ecchymosis. EXTREMITY: n o clubbing, cyanosis, edema, or deformity with normal ROM in both upper and lower bilateral extremities. NEUROLOGIC: g rossly normal. SKIN: n o rashes, ulcerations, or suspicious lesions. LYMPH NODES: n o cervical adenopathy, nodes normal. MENTAL STATUS: a lert and oriented x3, normal mood and affect. Assessment: * Assessment: 1. M igraine - G43.909 (Primary) Plan: * Treatment: * Preventive Medicine: Screenings/Counseling: B HI ACTION PLAN Above Normal BMI Follow-up D ietary management education, guidance, and counseling * * Electronic signature of Rj Reynolds MD, [phone] on 07/21/2024 at 12:03 PM EDT Sign off status: Pending Visit Status: C (Check Out) * Provider: Andre Reynolds (TTC)MD Date: 0 07/21/2024 Generated for Elgini ng/Faprabhug/eTransmitting on: 0 07/21/2024 12:03 PM EDT History and Physical Notes * HPI (History of Present Illness) Category Sub-Category Detail Notes Category Not es General Miles left tempal tendenrss - needs ESR -= has rick santacruzeady Examination Category Sub-Category Detail Notes Category Not es Physical Exam GENERAL: well developed, well nourished, in no acute distress HEAD: normocephalic/atraum atic EYES: pupils equal, round and reactive to light, conjunctivae and sclerae normal EARS: no deformity or lesi on of external ear, canals and TM appear normal bilaterally, TM's intact, not inflamed with normal light reflex, hearing grossly normal to conversational speech NOSE: no deformity, discha rge, inflammation, or lesions MOUTH: mucous membranes chris st, normal oropharynx and posterior pharynx without lesions or exudates, tongue normal, dentition normal NECK: neck supple, no mass es or palpable cervical nodes, trachea midline, thyroid without nodules, masses, tenderness, or enlargement CHEST: no chest wall deform ity, no chest wall tenderness LUNGS: normal respiratory e ffort and clear to auscultation, no wheezes, rales, or rhonchi, good air exchange CARDIO: regular rate and rhy thm, normal S1 and S2, nor murmur, rub, or gallop PULSES: normal capillary ref ill ABDOMEN: soft, non-distended, non-tender, no masses RECTAL: MUSCULOSKELETAL: no deformity or scol iosis noted, normal range of motion, joints normal, no erythema, edema, effusion, or ecchymosis EXTREMITY: no clubbing, cyanosi s, edema, or deformity with normal ROM in both upper and lower bilateral extremities NEUROLOGIC: grossly normal SKIN: no rashes, ulceratio ns, or suspicious lesions LYMPH NODES: no cervical adenopat hy, nodes normal MENTAL STATUS: alert and oriented x 3, normal mood and affect
--- OUTSIDE RECORDS SUMMARY | 2024-07-21 12:03 | XMS_ITS | Clinical Summary ---
Author Organization [facility] Address [address] [place] [address] Care Team Providers Care Copier And Printer Field Technician Name Role Phone Bonilla Hankins MD Primary Care Provider [phone] Allergies Active Allergy Reactions Criticality Noted Date Comments Cephalexin 02/01/2015 Other Reaction(s): Unknown, Vomiting Nausea Other reaction(s): Vomiting Nausea Ciprofloxacin Anaphylaxis High 11/05/2013 Other Reaction(s): Other, Unknown cant breathe Medications buPROPion SR (Wellbutrin SR) 200 MG 12 hr tablet Take 200 mg by mouth in the morning and 200 mg in the evening. Active levothyroxine (Synthroid, Levoxyl) 150 MCG tablet Take 1 tablet by mouth in the morning. Active lisinopril 10 MG tablet Take 1 tablet by mouth in the morning. Active mirtazapine (Remeron) 30 MG tablet Take 1 tablet by mouth at bedtime Active simvastatin (Zocor) 20 MG tablet Active topiramate (Topamax) 100 MG tablet 1 (one) time each day at the same time Active acetaminophen-c odeine (Tylenol w/ Codeine #3) 300-30 MG tablet Take by mouth Active meloxicam (Mobic) 15 MG tablet Take 15 mg by mouth Active Active Problems Problem Noted Date Diagnosed Date Chronic mastoiditis of both sides 07/03/2024 Mixed conductive and sensori neural hearing loss of right ear with restricted hearing of left ear 07/03/2024 Mixed hearing loss, bilateral 07/03/2024 Unilateral vocal fold paralysis 02/02/2015 Contact and allergic dermatitis of eyelid 2013 Other chronic allergic conjunctivitis 12/26/2013 Strabismic amblyopia 11/05/2013 Tear film insufficiency 11/05/2013 Vitreous degeneration 11/05/2013 Rosacea 06/07/2004 Encounters Date Type Department Care Team Description 07/07/2024 10:30 AM EDT Office Visit [facility] [address] [facility] [address] [place] [address] Florecita Teague MD Ear fullness, bilateral (Primary Dx); Chronic mastoiditis, bilateral; Chronic head pain; Chronic facial pain 07/07/2024 Bamboo flowsheet [facility] [address] [facility] [address] [place] [address] Florecita Teague MD 07/07/2024 Travel from Last 3 Months Family History Medical History Relation Name Comments Cancer Father Christiano Ellis Relation Name Status Comments Father Christiano Ellis Alive Social History Tobacco Use Types Packs/Day Years [...] on file Sexual Orientation Not on file Last Filed Vital Signs Vital Sign Reading [...] Mass Index 41.02 07/07/2024 10:19 AM EDT Plan of Treatment Health Maintenance Due Date Last Done Comments CT Colonography 1964 Colonoscopy 1965 Colorectal Cancer Screening 1965 FIT-DNA 1964 FIT 1965 FOBT 1965 Sigmoidoscopy 1965 Pap Smear 1985 Cervical Cancer Screening 1994 HPV/Cotest 1994 Mammogram 2004 Influenza Vaccine (Season Ended) 2024 Insurance [employer] Care Teams Copier And Printer Field Technician Relationship Specialty Start Date End Date Bonilla Hankins MD [address] [place] [id number] PCP - General Family Medicine 07/02/24
--- OUTSIDE RECORDS SUMMARY | 2024-07-21 12:03 | XMS_ITS | Encounter Summary ---
Author Organization [facility] Address [address] [place] [address] Care Team Providers Care Microbiology Supervisor Name Role Phone Bonilla Hankins MD Primary Care Provider [phone] Encounter Details Date Type Department Care Team ([facility] st Contact Info) Description 07/07/2024 Bamboo flowsheet [facility] [address] [facility] [address] [place] [address] Florecita Teague MD [address] [facility] [address] [place] [address] Social History Tobacco Use Types Packs/Day Years Used Date Smoking Tobacco: Never Smokeless Tobacco: Never Alcohol Use Standard Drinks/Week Comments Yes 6 (1 standard drink = 0.6 oz pure alcohol) Haven't drank anything since before Easter Comments Unknown Sex and Gender Information Value Date Recorded Sex Assigned at Not on file Legal Sex Female 7:26 PM EDT Gender Identity Not on file Sexual Orientation Not on file documented as of this encounter Plan of Treatment Not on file documented as of this encounter Visit Diagnoses Not on filedocumented in this encounter Care Teams Microbiology Supervisor Relationship Specialty Start Date End Date Bonilla Hankins MD [address] [place] [address] PCP - General Family Medicine 07/02/24 documented as of this encounter
--- OUTSIDE RECORDS SUMMARY | 2024-07-21 12:03 | XMS_ITS | Encounter Summary ---
Author Organization [facility] Address [address] [place] [address] Care Team Providers Care Field Service Tech Name Role Phone Bonilla Hankins MD Primary Care Provider [phone] Encounter Details Date Type Department Care Team (Latest Contact Info) Description 07/07/2024 Travel Social History Tobacco Use Types Packs/Day Years [...] on filedocumented in this encounter Care Teams Field Service Tech Relationship Specialty Start Date End Date Bonilla Hankins MD [address] [place] [address] PCP - General Family Medicine 07/02/24 documented as of this encounter
--- OUTSIDE RECORDS SUMMARY | 2024-07-21 12:03 | XMS_ITS | Clinical Summary ---
Author Organization [facility] Address [address] [place] [address] Phone Care Team Providers Care Printing Machinist Name Role Phone Unavailable Primary Care Provider Unavailabl e Social History Tobacco Use Types Packs/Day Years Used Date Smoking Tobacco: Never Assessed Comments Unknown Sex and Gender Information Value Date Recorded Sex Assigned at Not on file Legal Sex Female 7:26 PM EST Gender Identity Not on file Sexual Orientation Not on file Plan of Treatment Not on file
--- OUTSIDE RECORDS SUMMARY | 2024-07-21 12:03 | XMS_ITS | Clinical Summary ---
Author Organization [facility] Address [facility] [place] [address] Care Team Providers Care Pleasure Craft Sailor Name Role Phone Bonilla Hankins MD Primary Care Provider [phone] Allergies Active Allergy Reactions Criticality Noted Date Comments Ciprofloxacin Anaphylaxis 11/05/2013 Cephalexin Vomiting 02/01/2015 Fxxqvxgvj-Uwe-Uq-Acetaminoph en Rash 05/31/2004 does fine with tylenol and sudafed alone - Nzt-Npmjivaze-Sv-Acetaminoph en Rash 05/31/2004 Medications topiramate (TOPAMAX) 100 mg tabletIndication s:Progressive high (degenerative) myopia,Strabismi c amblyopia,Vitreo us degeneration,Sen ile cataract, unspecified,Tear film insufficiency, unspecified Take 100 mg by mouth twice daily. Active Levothyroxine 125 mcg capIndications:P rogressive high (degenerative) myopia,Strabismi c amblyopia,Vitreo us degeneration,Sen ile cataract, unspecified,Tear film insufficiency, unspecified Take 125 mcg by mouth once daily. Active BUPROPION HCL ORALIndications: Progressive high (degenerative) myopia,Strabismi c amblyopia,Vitreo us degeneration,Sen ile cataract, unspecified,Tear film insufficiency, unspecified Take 300 mg by mouth once daily. Active CONTRAVE 8-90 mg TbER 5 Active oxyCODONE (ROXICODONE) 5 mg/5 mL oral solution Take 5 mL by mouth every 4 hours as needed for Pain (Take only if alternating Tylenol every 6 hours does not control the pain.). 200 mL 0 5 Active Active Problems Problem Noted Date Diagnosed Date Unilateral vocal fold paralysis 02/02/2015 Other chronic allergic conjunctivitis - Both Eye s 12/26/2013 Contact and allergic dermatitis of eyelid - Both Eyes 12/26/2013 Lens replaced by other means - Both Eyes 014 Overview (12/02/2013): Toric T4 od, IQ os. 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 Progressive high (degenerative) myopia - Both Ey es 11/05/2013 Vitreous degeneration - Right Eye 11/05/2013 Tear film insufficiency, unspecified 11/05/2013 Unspecified pruritic disorder 06/07/2004 Rosacea 06/07/2004 Resolved Problems Problem Noted Date Diagnosed Date Resolved Date Lens replaced by other means 11/10/2013 12/02/2013 Senile cataract, unspecified - Both Eyes 11/05/2013 01/11/2014 Family History Medical History Relation Comments Cancer Father Cataract Father Relation Status Comments Father Social History Tobacco Use Types Packs/Day Years Used Date Smoking Tobacco: Never Alcohol Use Standard Drinks/Week Comments Yes 0 (1 standard drink = 0.6 oz pur e alcohol) Comments No Sex and Gender Information Value Date Recorded Sex Assigned at Not on file Legal Sex Female 8:38 AM EST Gender Identity Not on file Sexual Orientation Not on file Last Filed Vital Signs Vital Sign Reading Time Taken Comments Blood Pressure 142/81 02/01/2015 12:55 PM EST Pulse 72 02/01/2015 12:55 PM EST Temperature 36.6 C (97.9 F) 02/01/2015 10:33 AM EST Respiratory Rate 16 02/01/2015 12:55 PM EST Oxygen Saturation 97% 02/01/2015 12:55 PM EST Inhaled Oxygen Concentration - - Weight 90.7 kg (200 lb) 2013 10:37 AM EDT Height 179.1 cm (5' 10.5 ) 11/06/2013 12:20 PM E DT Body Mass Index 28.29 11/06/2013 12:20 PM EDT Plan of Treatment Health Maintenance Due Date Last Done Comments Anxiety Screening 1982 Depression Screening 1982 HIV Screening 1982 Hepatitis C Screening 1982 DTaP,Tdap,Td Vaccine (1 - Tdap) 11/24/1983 Cervical Cancer Screening [address] Colonography 2009 Cologuard (FIT-DNA) 2009 Colonoscopy 2009 Colorectal Cancer Screening 2009 Fecal Occult Blood 2009 Lipid Screening 2009 Sigmoidoscopy 2009 Pneumococcal Vaccine: 50+ (1 of 1 - PCV) 2014 Shingrix Vaccine (1 of 2) 2014 Diabetes Screening 01/05/2018 01/05/2015 Covid-19 Vaccine ( - season) 2023 Influenza Vaccine (Season Ended) 2024 Medical Devices Implanted Type Area Tongue Lining Stitcher Device Identifier Shelf Expiration Date Model / Serial / Lot Xbd-Yd-[id number]-Kind Implant - [id number] Implanted:Qty : 1 on 2013 at [facility] Implant Right: Eye - Lens [employer] 04/17/2018 [id number] 8.0 / [id number] / [id number] Silicone Block Firm - [id number] Implanted:Qty : 1 on 02/01/[address] [facility] Implant Right: Vocal Cord [employer] [id number] / / [id number] Description:Silicone block, custom cut into a prosthesis. Lens Iol +13.5 Navneet [employer]rs Iq - [id number] Implanted:Qty : 1 on 11/09/2013 at [facility] Intraocular Lens [employer] 02/16/2018 [id number] 13.5 / [id number] / Procedures Procedure Name Priority Date/Time Associated Diagnosis Comments BASIC METABOLIC PANEL Routine 01/05/2015 2:47 PM EST Vocal fold paralysis, unilateral Pre-operative clearance from Last 3 Months or Most Recently Relevant to Health Maintenance Results * (ABNORMAL) BASIC METABOLIC PNL (01/05/2015 2:47 PM EST) Glucose 85 65 - 100 mg/dL 01/05/2015 6:34 PM EST [facility] BUN 13 8 - 25 mg/dL 01/05/2015 6:34 PM EST [facility] Creatinine 0.69(L) 0.70 - 1.40 mg/dL 01/05/2015 6:34 PM EST [facility] Sodium 139 132 - 148 mmol/L 01/05/2015 6:34 PM EST [facility] Potassium 3.5 3.5 - 5.0 mmol/L 01/05/2015 6:34 PM [facility] Chloride 101 98 - 110 mmol/L 01/05/2015 6:34 PM [facility] CO2 23 23 - 32 mmol/L 01/05/2015 6:34 PM [facility] Anion Gap 15 0 - 15 mmol/L 01/05/2015 6:34 PM [facility] Calcium 8.8 8.5 - 10.5 mg/dL 01/05/2015 6:34 PM [facility] eGFR- >60 01/05/2015 6:34 PM [facility] eGFR-All Other Races >60 . 01/05/2015 6:34 PM [facility] Comment: eGFR (Estimated GFR) Units of measure: mL/min/1.73 meters squared eGFR is derived from the reexpressed MDRD Study equation using the following parameters: serum creatinine, age, gender and race. The creatinine assay has been calibrated to be traceable to IDMS. An eGFR <60 mL/min/1.73m2 for >3 months is consistent with chronic kidney disease. Refer to KDOQI guidelines for clinical interpretation. In patients with unstable renal function, e.g. those with acute kidney injury, the eGFR may not accurately reflect actual GFR. Blood specimen (specimen) BLOOD SPECIMEN / Unknown 01/05/2015 2:47 PM EST 01/05/2015 2:49 PM EST us Daniel Mccormack MD LABORATORY Final Resul t [facility] [address] [place] [address] from Last 3 Months or Most Recently Relevant to Health Maintenance Care Teams Pleasure Craft Sailor Relationship Specialty Start Date End Date Bonilla Hankins MD [address] [place] [address] PCP - General 05/29/00
--- OUTSIDE RECORDS SUMMARY | 2024-07-21 12:04 | XMS_ITS | Clinical Summary ---
Author Organization [facility] Address [address] [place] [address] Care Team Providers Care Home Advisor Name Role Phone Bonilla Hankins MD Primary Care Provider [phone] Allergies Active Allergy Reactions Criticality Noted Date Comments Cephalexin 02/01/2015 Other reaction(s): Vomiting Nausea Ciprofloxacin Anaphylaxis,Other High 11/05/2013 cant breathe Kxa-Nuavuahgj-Dk-Acetamin ophen Rash Low 05/31/2004 Ojnlncnzn-Vxk-Au-Acetamin ophen Rash Low 05/31/2004 does fine with tylenol and sudafed alone - Oxycodone-Acetaminophen 02/05/2014 Other reaction(s): other Medications Medication Sig Dispensed Refills Start Date End Date Status buPROPion XL (Wellbutrin XL) 300 mg 24 hr tablet Active topiramate (Topamax) 100 mg tablet 09/22/2021 Active simvastatin (Zocor) 20 mg tablet Active levothyroxine (Euthyrox) 150 mcg tablet Take 1 tablet by mouth in the morning. Active lisinopril 10 mg tablet Take 1 tablet by mouth in the morning. Active mirtazapine (Remeron) 30 mg tablet Take 1 tablet by mouth at bedtime. Active Social History Tobacco Use Types Packs/Day Years Used Date Smoking Tobacco: Never Smokeless Tobacco: Never Tobacco Cessation:Counseling Given: Not Answered Alcohol Use Standard Drinks/Week Comments Never 0 (1 standard drink = 0.6 oz pur e alcohol) Overall Financial Resource Strain (CARDIA) Answe r Date Recorded How hard is it for you to pa y for the very basics like food, housing, medical care, and heating? Not very hard 09/20/2022 PHQ-2 Answer Date Recorded Patient Health Questionnaire-2 Score 0 09/20/2022 [facility] - Occupational Stress Questionnaire Answer Date Recorded Do you feel stress - tense, restless, nervous, or anxious, or unable to sleep at night because your mind is troubled all the time - these days? Not at all 09/20/2022 [facility] Answer Date Rec orded Fear of Current or Ex-Partner Not on file Emotionally Abused Not on file 04/11/2023 Physically Abused Not on file 04/11/2023 Sexually Abused Not on file 04/11/2023 Physically or Sexually Abused Not on file Transportation Answer Date Recorded In the past 12 months, has l ack of transportation kept you from medical appointments or from getting medications? No 04/2022 In the past 12 months, has l ack of transportation kept you from meetings, work, or from getting things needed for daily living? No 09/20/2022 Sex and Gender Information Value Date Recorded Sex Assigned at Not on file Gender Identity Not on file Sexual Orientation Not on file Last Filed Vital Signs Vital Sign Reading Time Taken Comments Blood Pressure - - Pulse - - Temperature - - Respiratory Rate - - Oxygen Saturation - - Inhaled Oxygen Concentration - - Weight 125 kg (275 lb) 09/20/2022 10:48 AM EDT Height 177.8 cm (5' 10 ) 09/20/2022 10:48 AM EDT Body Mass Index 39.46 09/20/2022 10:48 AM EDT Plan of Treatment Health Maintenance Due Date Last Done Comments CT Colonography 1964 Colonoscopy 1964 Colorectal Cancer Screening 1964 FIT-DNA 1964 FIT 1964 FOBT 1964 Sigmoidoscopy 1964 Depression Screening 1976 Hepatitis B Vaccines (1 of 3 - 19+ 3-dose series) 11/24/1983 Pap Smear 1985 Adult Tetanus 1986 Cervical Cancer Screening 1994 HPV/Cotest 1994 Mammogram 2004 Zoster Vaccines (1 of 2) 2014 COVID-19 Vaccine (2 - 2023-2 5 season) 2023 08/15/2020 Influenza Vaccine (Season Ended) 2024 HIB Vaccines Aged Out No longer eligi ble based on patient's age to complete this topic HPV Vaccines Aged Out No longer eligi ble based on patient's age to complete this topic IPV Vaccines Aged Out No longer eligi ble based on patient's age to complete this topic Meningococcal B Vaccine Aged Out No l onger eligible based on patient's age to complete this topic Meningococcal Vaccine Aged Out No edgar jin eligible based on patient's age to complete this topic Pneumococcal Vaccine: Pediat rics (0 to 5 Years) and At-Risk Patients (6 to 64 Years) Aged Out No longer eligi ble based on patient's age to complete this topic Rotavirus Vaccines Aged Out No longer eligible based on patient's age to complete this topic Care Teams Home Advisor Relationship Specialty Start Date End Date Bonilla Hankins MD [address] [facility] [address] [address] PCP - General 09/20/22
--- OUTSIDE RECORDS SUMMARY | 2024-07-21 12:04 | XMS_ITS | Clinical Summary ---
Author Organization [employer] Address [facility] [id number] [address] [place] [address] Care Team Providers Care Client Relation Specialist Name Role Phone Bonilla Hankins MD Primary Care Provider [phone] Social History Tobacco Use Types Packs/Day Years Used Date Smoking Tobacco: Never Assessed Childcare Answer Date Recorded Childcare Unknown 07/21/2018 Employment Answer Date Recorded Employment Unknown 07/21/2018 Purpose - Life Answer Date Recorded Purpose and direction in life Unknown Comments Unknown Sex and Gender Information Value Date Recorded Sex Assigned at Not on file Legal Sex Female 11:32 AM EDT Gender Identity Not on file Sexual Orientation Not on file Plan of Treatment Health Maintenance Due Date Last Done Comments Depression Screening 1976 Tobacco Screening 1976 Adult BMI Screening 1982 DTaP,Tdap and Td Vaccines (1 - Tdap) 11/24/1983 Pap Smear 1985 Zoster (Shingles) Vaccine (1 of 2) 2014 COVID-19 Vaccine (2 - season) 2023 Influenza Vaccine 10/19/2024 [employer] Devices Not on file Insurance WORK[employer] COMPENSATION - GENERIC PLAN WORKER'S COMPENSATION - GENERIC PLAN Member Subscriber Plan / Payer (Ef fective 2010-Present) Name:Maribell Saleh Relation to Subscriber:Self Name:Maribell Saleh Payer ID:Not on file Group ID:Not on file Type:Not on file Address: [facility] [address] [place] [id number] [employer] Care Teams Client Relation Specialist Relationship Specialty Start Date End Date Bonilla Hankins MD PCP - General Family Medicine 08/08/20
--- OUTSIDE RECORDS SUMMARY | 2024-07-21 12:04 | XMS_ITS | Encounter Summary ---
Author Organization [facility] Address [facility] [place] [id number] Care Team Providers Care Charge Operator Name Role Phone Bonilla Hankins MD Primary Care Provider [phone] Source Comments In the event this information is protected by the Federal Confidentiality of Alcohol and Drug AbusePatient Records regulations: The Federal rules restrict any use of the information to criminally investigate or prosecute any alcohol or drug abuse patient.[facility] Encounter Details Date Type Department Care Team (Latest Contact Info) Description 06/05/2004 Prob Sum Review Provider, Jose Alfredo Social History Tobacco Use Types Packs/Day Years [...] on filedocumented in this encounter Care Teams Charge Operator Relationship Specialty Start Date End Date Bonilla Hankins MD [address] [place] [address] PCP - General 05/29/00 documented as of this encounter
--- OUTSIDE RECORDS SUMMARY | 2024-07-21 12:04 | XMS_ITS | Clinical Summary ---
Author Organization [facility] Address [address] [place] [address] Care Team Providers Care Cigarette Filter Inspector Name Role Phone Bonilla Hankins MD Primary Care Provider [phone] Allergies Active Allergy Reactions Criticality Noted Date Comments Cephalexin 10/09/2019 Nausea Ciprofloxacin 10/09/2019 cant breathe Medications oxyCODONE-aceta minophen (PERCOCET) 5-325 mg per tablet Take 1 tablet by mouth every 6 (six) hours as needed for pain . . Active simvastatin (ZOCOR) 20 MG tablet Take 20 mg by mouth nightly . Active topiramate (TOPAMAX) 100 MG tablet Take 100 mg by mouth 2 (two) times a day . Active buPROPion (WELLBUTRIN SR) 200 MG 12 hr tablet Take 200 mg by mouth 2 (two) times a day . Active lisinopriL (PRINIVIL,ZESTR IL) 10 MG tablet Take by mouth daily . Active levothyroxine (Euthyrox) 150 MCG tablet Take 150 mcg by mouth once daily . Active ibuprofen (ADVIL,MOTRIN) 600 MG tablet Take 600 mg by mouth every 6 (six) hours as needed for pain . Active Social History Tobacco Use Types Packs/Day Years Used Date Smoking Tobacco: Never Smokeless Tobacco: Never Alcohol Use Standard Drinks/Week Comments Yes 0 (1 standard drink = 0.6 oz pur e alcohol) social Comments No Sex and Gender Information Value Date Recorded Sex Assigned at Not on file Legal Sex Female 10:51 PM EDT Gender Identity Female 10/09/2019 10:57 PM EDT Sexual Orientation Straight 10/09/2019 10 :57 PM EDT Last Filed Vital Signs Vital Sign Reading Time Taken Comments Blood Pressure 163/89 10/09/2019 10:58 PM EDT Pulse 86 10/09/2019 10:58 PM EDT Temperature 36.7 C (98.1 F) 10/09/2019 10:58 PM EDT Respiratory Rate 18 10/09/2019 10:58 PM EDT Oxygen Saturation 98% 10/09/2019 10:58 PM EDT Inhaled Oxygen Concentration - - Weight 131.5 kg (290 lb) 10/09/2019 10:53 PM EDT Height 179.1 cm (5' 10.5 ) 10/09/2019 10:53 PM E DT Body Mass Index 41.02 10/09/2019 10:53 PM EDT Plan of Treatment Health Maintenance Due Date Last Done Comments CT Colonography 1964 Colonoscopy 1964 Colorectal Cancer Screening/Monitoring 1964 Fecal DNA 1964 Fecal occult blood test (FOBT,FIT) 1964 Tetanus: Every 10yrs 1964 Wellness Visit 11/24/1967 Depression Screening/Follow-Up (PHQ-2/9) 1976 HIV Screening 11/24/1979 Hepatitis C Screening 1982 Pap Smear 1985 Cervical Cancer Screening 1994 HPV/Cotest 1994 Pneumococcal Vaccine: Age 50+ (1 of 1 - PCV) 5 Zoster Vaccines (1 of 2) 2014 COVID-19 Vaccine ( - season) 2023 Influenza Vaccine (Season Ended) 2024 Insurance [facility] [place] [id number] Care Teams Cigarette Filter Inspector Relationship Specialty Start Date End Date Bonilla Hankins MD [address] [facility] [address] [place] [id number] PCP - General Family Medicine 10/09/19
--- OUTSIDE RECORDS SUMMARY | 2024-07-21 12:04 | XMS_ITS | Referral Summary ---
Author Organization [facility] Address [address] [place] [address] Care Team Providers Care Supervisor Hanging And Trimming Name Role Phone Bonilla Hankins MD Primary Care Provider [phone] Allergies Active Allergy Reactions Criticality Noted Date Comments Cephalexin 02/01/2015 Other reaction(s): Vomiting Nausea Ciprofloxacin Anaphylaxis,Other High 11/05/2013 cant breathe Tys-Wrkovqyps-Uu-Acetamin ophen Rash Low 05/31/2004 Djckfesnd-Eby-Xk-Acetamin ophen Rash Low 05/31/2004 does fine with [...] Recorded Patient Health Questionnaire-2 Score 0 09/20/2022 [facility] [place] [facility] Occupat ional Health - Occupational Stress [...] 09/20/2022 10:48 AM EDT Plan of Treatment Not on file Care Teams Supervisor Hanging And Trimming Relationship Specialty Start Date End Date Bonilla Hankins MD [address] [facility] [address] [address] PCP - General 09/20/22
--- OUTSIDE RECORDS SUMMARY | 2024-07-21 12:05 | XMS_ITS | Patient Health Record ---
Author Organization The [facility] in [place] Address [address] [place] [address] Care Team Providers Care Plate Setter Name Role Phone RJ HANKINS MD Primary Care Provider Kate Corea Unavailable [phone] Rj Hankins Unavailable [phone] Allergies Allergen (clinical drug ingredient) Drug/Non Drug Allergy documented on EMR Reaction Allergy Type Onset Date Status Cipro (ciprofloxacin) Unknown Drug Allergy Active Keflex (cephalexin) Unknown Drug Allergy Active Results Component Value Reference Range Notes XR Foot RT (3 views) * Reviewed date:02/17/2024 01:34:52 PM Interpretation: Performing Lab: Notes/Report: FREE T3 Reviewed date:04/19/2024 12:36:14 PM Interpretation: Performing Lab: Notes/Report: [facility] , Free T3 3.03 2.18-3.98 pg/mL Performing Lab: see note ML - The [facility] LB LIPID PROFILE Reviewed date:04/19/2024 12:36:14 PM Interpretation: Performing Lab: Notes/Report: [facility] , Triglycerides 239 <=150 mg/dL Cholesterol 183 <=200 mg/dL HDL Cholesterol 36 40-60 mg/dL > or =60 mg/dl - LOW CARDIOVASCULAR RISK <40 mg/dl - HIGH CARDIOVASCULAR RISK LDL Cholesterol Calculated 100.0 >190 mg/dl VERY HIGH <100 mg/dl OPTIMAL 100-129 mg/dl NEAR OR ABOVE OPTIMAL 160-189 mg/dl HIGH 130-159 mg/dl BORDERLINE HIGH VLDL CHOLESTEROL 47.8 Chol HDL Ratio 5.1 4.4 - 7.1 AVERAGE RISK >11.0 HIGH RISK 7.1 - 11.0 MODERATE RISK 3.3 - 4.4 LOW RISK Performing Lab: see note ML - [facility] LB T4 Reviewed date:04/19/2024 12:36:14 PM Interpretation: Performing Lab: Notes/Report: [facility] , T4 Thyroxine 5.00 4.80-13.90 ug/dL Performing Lab: see note ML - [facility] LB TSH Reviewed date:04/19/2024 12:36:14 PM Interpretation: Performing Lab: Notes/Report: [facility] , Thyroid Stimulating Hormone 1.470 0.358-3.740 uIU/mL Performing Lab: see note ML - [facility] LB XR foot GOOD min 3V Reviewed date:04/19/2024 12:36:14 PM Interpretation: Performing Lab: Notes/Report: Source Facility: [facility]-[address] [place] [address] [place] [address] XRay Report Signed Patient: LORRAINE SALEH MR#: [id number] : 1965 Acct:[id number] Age/Sex: 58 / F ADM Date: 12/26/23 Loc: RAD Attending Dr: Rylie Prieto D.P.M. Ordering Physician: Rylie Prieto D.P.M. Date of Service: 12/26/23 Procedure(s): XR foot GOOD min 3V Accession Number(s): [id number] cc: Rylie Prieto D.P.M.; Jorge Hankins M.D. The [place] [address] Patient Name: LORRAINE SALEH MRN: [id number] date: 1965 Sex: F Assigned Patient Location: RAD Current Patient Location: Accession/Order Number: [id number] Exam Date: 12/26/2023 15:20 Report Date: 12/30/2023 07:47 At the request of: RYLIE PRIETO Procedure: XR foot GOOD min 3V EXAMINATION: XR foot GOOD min 3V HISTORY: Bilateral Foot Pain COMPARISON: No relevant comparison available. FINDINGS: RIGHT FINDINGS: BONES: No acute fracture or dislocation. Mild to moderate degenerative changes with joint space narrowing marginal osteophyte formation most significant first metatarsal-phalangeal joint. Enthesopathic spurring of the calcaneus SOFT TISSUES: Negative. No visible soft tissue swelling. OTHER: Negative. LEFT FINDINGS: BONES: No acute fracture or dislocation. Mild to moderate degenerative changes with joint space narrowing marginal osteophyte formation most significant second through fifth tarsometatarsal joints. Enthesopathic spurring of the calcaneus SOFT TISSUES: Negative. No visible soft tissue swelling. OTHER: Negative. XR/XR foot GOOD min 3V IMPRESSION: Mild to moderate bilateral osteoarthritis Electronically authenticated by: JAZMINE TILLEY Date: 12/30/2023 07:47 Dictated By: Jazmine Tilley M.D. Signed By: 12/30/23748 DD/ 6 TD/TT: Policy Issue Clerk: [place] [address] XRay Report Signed Patient: LADAN SALEH MR#: [id number] : 1965 Acct:[id number] Age/Sex: 58 / F ADM Date: 12/26/23 Loc: RAD Attending Dr: Rylie Prieto D.P.M. Ordering Physician: Rylie Prieto D.P.M. Date of Service: 12/26/23 Procedure(s): XR kaylin t GOOD min 3V Accession Number(s): [id number] cc: Rylie Prieto D.P.M.; Jorge Hankins M.D. [place] [id number] Patient Name: LORRAINE SALEH MRN: [id number] date: 1965 Sex: F Assigned Patient Location: RAD Current Patient Location: Accession/Order Numb er: [id number] Exam Date: 15:20 Report Date: 12/30/2023 07:47 At the request of: RYLIE PRIETO Procedure: XR foot B IL min 3V EXAMINATION: XR foot GOOD min 3V HISTORY: Bilateral F oot Pain COMPARISON: No relev ant comparison available. FINDINGS: RIGHT FINDINGS: BONES: No acute fracture or dislocation. Mild to moderate degenerative changes with joint space narrowing marginal osteophyte formation most significant first metatarsal-phalangea l joint. Enthesopathic spurring of the calcaneus SOFT TISSUES: Negati ve. No visible soft tissue swelling. OTHER: Negative. LEFT FINDINGS: BONES: No acute fracture or dislocation. Mild to moderate degenerative changes with joint space narrowing marginal osteophyte formation most significant second through fifth tarsometatarsal joints. Enthesopathic spurring of the calcaneus SOFT TISSUES: Negati ve. No visible soft tissue swelling. OTHER: Negative. XR/XR foot GOOD min 3V IMPRESSION: Mild to moderate bilateral osteoarthritis Electronically authenticated by: JAZMINE TILLEY Date: 12/30/2023 07:47 Dictated By: Junior Tilley M.D. Signed By: 12/30/2349 DD/ TD/TT: Policy Issue Clerk: GLYCOHEMOGLOBIN A1C Reviewed date:04/19/2024 12:36:14 PM Interpretation: Performing Lab: Notes/Report: [facility] , Glycohemoglobin A1C 5.7 4.5-6.2 % > 7.0 ADA THERAPEUTIC TARGET < 7.0 ACTION SUGGESTED ADA RECOMMENDED LIMIT 4.0 - 6.0 Estimated Average Glucose 117 Performing Lab: see note ML - [facility] LB CBC AUTO DIFF Reviewed date:04/19/2024 12:36:14 PM Interpretation: Performing Lab: Notes/Report: [facility] , White Blood Count 7.4 4.0-11.0 10 3/uL Red Blood Count 4.73 4.20-5.40 10 6/uL Hemoglobin 13.1 12.0-16.0 g/dL Hematocrit 40.6 36.0-48.0 % Mean Corpuscular Volume 85.8 81.0-99.0 fL Mean Corpuscular Hemoglobin 27.7 26.7-34.0 pg Mean Corpuscular HGB Conc 32.3 29.9-35.2 g/dL Red Cell Distribution Width 13.6 11.0-15.0 % Platelet Count 207 150-450 10 3/uL Mean Platelet Volume 10.3 9.5-13.5 fL Neutrophils Percent Auto 62.9 43.0-75.0 % Lymphocytes Percent Auto 27.7 20.5-60.0 % Monocytes Percent Auto 6.0 1.7-12.0 % Eosinophils Percent Auto 2.3 0.9-7.0 % Basophils Percent Auto 0.7 0.2-2.0 % Immature Granulocytes Pct Auto 0.4 0.0-0.5 % Neutrophils Absolute Auto 4.6 1.4-6.5 10 3/uL Lymphocytes Absolute Auto 2.0 1.2-3.8 10 3/uL Monocytes Absolute Auto 0.4 0.3-0.8 10 3/uL Eosinophils Absolute Auto 0.2 0.0-0.7 10 3/uL Basophils Absolute Auto 0.1 0.0-0.1 10 3/uL Immature Granulocytes Abs Auto 0.03 0.00-0.03 10 3/uL Performing Lab: see note ML - [facility] LB PROF 14(COMP METB) Reviewed date:04/19/2024 12:36:14 PM Interpretation: Performing Lab: Notes/Report: [facility] , Sodium 142 136-145 mmol/L Potassium 4.3 3.5-5.1 mmol/L Chloride 108 98-107 mmol/L Carbon Dioxide 24.0 21.0-32.0 mmol/L Anion Gap 14.3 Glucose 119 74-106 mg/dL Blood Urea Nitrogen 13.0 7.0-18.0 mg/dL Creatinine 0.90 0.55-1.02 mg/dL Estimated GFR ( Janelle >60 >=60 mL/min/1.73m 2 Estimated GFR (Non- Sylvia >60 >=60 mL/min/1.73m 2 BUN Creatinine Ratio 14.4 Calcium 9.0 8.5-10.1 mg/dL Bilirubin Total 0.4 0.2-1.0 mg/dL Aspartate Amino Transferase 10 15-37 U/L Alanine Aminotransferase 10 14-59 U/L Alkaline Phosphatase 125 46-116 U/L Total Protein 7.0 6.4-8.2 g/dL Albumin Level 3.8 3.4-5.0 g/dL Globulin 3.2 Albumin Globulin Ratio 1.2 Performing Lab: see note ML - [facility] LB MR head/brain wo con Reviewed date:07/01/2024 10:28:28 AM Interpretation: Performing Lab: Notes/Report: Source Facility: [facility]-[address] [place] [address] [address] Magnetic Resonance Report Signed Patient: LORRAINE SALEH MR#: [id number] : 1965 Acct:[id number] Age/Sex: 58 / F ADM Date: 07/01/24 Loc: MRI Attending Dr: Jorge Hankins M.D. Ordering Physician: Jorge Hankins M.D. Date of Service: 07/01/24 Procedure(s): MR head/brain wo con Accession Number(s): [id number] cc: Jorge Hankins M.D. [address] [address] Patient Name: LORRAINE SALEH MRN: [id number] date: 1965 Sex: F Assigned Patient Location: MRI Current Patient Location: MRI Accession/Order Number: [id number] Exam Date: 07/01/2024 08:03 Report Date: 07/01/2024 08:08 At the request of: JORGE HANKINS MD Procedure: MR head/brain wo con MR head/brain wo con 07/01/2024 7:17 AM SIGN AND SYMPTOMS: migraine G43.509 PROTOCOL: Multiplanar multisequence MR images of the brain were obtained without IV contrast COMPARISON: None. FINDINGS: Extra axial spaces: Age appropriate. Hemorrhage: None. Ventricular system: Within normal limits. Basal cisterns: Within normal limits and not effaced. Cerebral parenchyma: Nonspecific T2 and FLAIR hyperintense foci noted in the periventricular and subcortical white matter suggesting mild chronic microvascular ischemic change. Midline shift: None.. Cerebellum: Within normal limits. Brainstem: Within normal limits. OTHER: Calvarium: Normal marrow signal. Vascular system: Satisfactory flow voids within the anterior and posterior circulation. Visualized Paranasal sinuses: Within normal limits. Mastoid effusions are present bilaterally. Visualized Orbits: Within normal limits. Visualized upper cervical spine: Within normal limits. Sella and skull base: Within normal limits. MR/MR head/brain wo con IMPRESSION: Mild chronic microvascular ischemic changes are noted. Bilateral mastoid effusions are present. No acute intracranial pathology. Impression dictated by: Chris Good M.D. 07/01/2024 8:08 AM Dictation Location: [place] [address] Electronically authenticated by: [id number] Y Date: 07/01/2024 08:08 Dictated By: Chris Good M.D. Signed By: 07/01/24809 DD/ 7 TD/TT: Policy Issue Clerk: [place] [address] Magnetic Resonance Report Signed Patient: LADAN SALEH MR#: [id number] : 1965 Acct:[id number] Age/Sex: 58 / F ADM Date: 07/01/24 Loc: MRI Attending Dr: Cara Hankins M.D. Ordering Physician: Jorge Hankins M.D. Date of Service: 07/01/24 Procedure(s): MR head/brain wo con Accession Number(s): [id number] cc: Jorge Hankins M.D. [place] [address] Patient Name: LORRAINE SALEH MRN: [id number] date: 1965 Sex: F Assigned Patient Location: MRI Current Patient Location: MRI Accession/Order Numb er: [id number] Exam Date: 07/01/2024 08:03 Report Date: 07/01/2024 08:08 At the request of: JORGE HANKINS MD Procedure: MR head/brain wo con MR head/brain wo con 07/01/2024 7:17 AM SIGN AND SYMPTOMS: migraine G43.509 PROTOCOL: Multiplana r multisequence MR images of the brain were obtained without IV contrast COMPARISON: None. FINDINGS: Extra axial spaces: Age appropriate. Hemorrhage: None. Ventricular system: Within normal limits. Basal cisterns: With in normal limits and not effaced. Cerebral parenchyma: Nonspecific T2 and FLAIR hyperintense foci noted in the periventricular and subcortical white matter suggesting mild chronic microvascular ischem ic change. Midline shift: None.. Cerebellum: Within normal limits. Brainstem: Within normal limits. OTHER: Calvarium: Normal marrow signal. Vascular system: Satisfactory flow voids within the anterior and posterior circulation. Visualized Paranasal sinuses: Within normal limits. Mastoid effusions are present bilaterally. Visualized Orbits: Within normal limits. Visualized upper cervical spine: Within normal limits. Sella and skull base : Within normal limits. MR/MR head/brain wo con IMPRESSION: Mild chronic microvascular ischemic changes are noted. Bilateral mastoid effusions are present. No acute intracrania l pathology. Impression dictated by: Chris Good M.D. 07/01/2024 8:08 AM Dictation Location: [place] [address] Electronically authenticated by: [id number] Y Date: 07/01/2024 08:08 Dictated By: Chris Good M.D. Signed By: 07/01/24 0810 DD/ 0808 TD/TT: Policy Issue Clerk: MM tomosynthesis screening B I Reviewed date:04/30/2024 06:49:15 PM Interpretation: Performing Lab: Notes/Report: Source Facility: [place] [address] Mammography Report Signed Patient: LORRAINE SALEH MR#: [id number] : 1965 Acct:[id number] Age/Sex: 58 / F ADM Date: 04/28/24 Loc: MAMMO Attending Dr: Jorge Hankins M.D. Ordering Physician: Jorge Hankins M.D. Results: Date of Service: 04/28/24 Follow Up: Procedure(s): MM tomosynthesis screening BI Accession Number(s): [id number] cc: Jorge Hankins M.D. Patient Name: LORRAINE SALEH MR#: [id number] : 1965 Exam Date: 04/28/2024 Ordering Doctor: DR Jorge Hankins . RADIOLOGY REPORT PROCEDURE: MM TOMOSYNTHESIS SCREENING BI COMPARISON: MM TOMOSYNTHESIS SCREENING BI, 04/23/2023. MG MAMM SCREEN 3D GOOD CAD, 04/17/2022. MG MAMM SCREEN 3D GOOD CAD, 04/13/2021. MG MAMM GOOD SCRN W CAD DIG, 03/23/2014. INDICATIONS: Screening Calculator Name NCI Breast Cancer Risk Assessment Tool 5 Year Breast Cancer Risk 1.10% Lifetime Breast Cancer Risk 6.20% Personal Breast Cancer No Personal Ovarian Cancer No Treatments None Family Cancers Grandfather-maternal with esophageal cancer at age 83. LOCATION: [facility] BREAST COMPOSITION: The breasts are heterogeneously dense,which may obscure small masses. FINDINGS: DIAGNOSTIC CATEGORY 1--NEGATIVE. LEFT BREAST: No significant suspicious finding. RIGHT BREAST: No significant suspicious finding. RECOMMENDATIONS: ROUTINE MAMMOGRAM AND CLINICAL EVALUATION IN 12 MONTHS. PLEASE NOTE: A NORMAL MAMMOGRAM DOES NOT EXCLUDE THE POSSIBILITY OF BREAST CANCER. A CLINICALLY SUSPICIOUS PALPABLE LUMP SHOULD BE BIOPSIED. Dictated by: Ramakrishna Ortega DO on 04/30/2024 at 09:41 Approved by: Ramakrishna Ortega DO on 04/30/2024 at 09:44 Dictated By: Ramakrishna Ortega M.D. Signed By: 04/30/24944 DD/ 3 TD/TT: Policy Issue Clerk: [place] [address] Mammography Report Signed Patient: LADAN SALEH MR#: [id number] : 1965 Acct:[id number] Age/Sex: 58 / F ADM Date: 04/28/24 Loc: MAMMO Attending Dr: Cara Hankins M.D. Ordering Physician: Jorge Hankins M.D. Results: Date of Service: 04/28/24 Follow Up: Procedure(s): MM tomosynthesis screening BI Accession Number(s): [id number] cc: Jorge Hankins M.D. Patient Name: LORRAINE SALEH MR#: [id number] : 1965 Exam Date: 04/28/2024 Ordering Doctor: DR Jorge Hankins . RADIOLOGY REPORT PROCEDURE: MM TOMOSYNTHESIS SCREENING BI COMPARISON: MM TOMOSYNTHESIS SCREENING BI, 04/23/2023. MG MAMM SCREEN 3D GOOD CAD, 04/17/2022. MG MAMM SCREEN 3D GOOD CAD, 04/13/2021. MG MAMM GOOD SCRN W CAD DIG, 03/23/2014. INDICATIONS: Screening Calculator Name NCI Breast Cancer Risk Assessment Tool 5 Year Breast Cancer Risk 1.10% Lifetime Breast Canc er Risk 6.20% Personal Breast Canc er No Personal Ovarian Can cer No Treatments None Family Cancers Grandfather-maternal with esophageal cancer at age 83. LOCATION: [facility] BREAST COMPOSITION: The breasts are heterogeneously dense,which may obscure small masses. FINDINGS: DIAGNOSTIC CATEGORY 1--NEGATIVE. LEFT BREAST: No significant suspicious finding. RIGHT BREAST: No significant suspicious finding. RECOMMENDATIONS: ROUTINE MAMMOGRAM AN D CLINICAL EVALUATION IN 12 MONTHS. PLEASE NOTE: A RANDY L MAMMOGRAM DOES NOT EXCLUDE THE POSSIBILITY OF BREAST CANCER. A CLINICALLY SUSPICIOUS PALPABLE LUMP SHOULD BE BIOPSIED. Dictated by: Ramakrishna Ortega DO on 04/30/2024 at 09:41 Approved by: Ramakrishna Ortega DO on 04/30/2024 at 09:44 Dictated By: Ramakrishna Ortega M.D. Signed By: 04/30/24944 DD/ 3 TD/TT: Policy Issue Clerk: Reason For Referral Reason evaluation and treat ment -- see attached order Diagnosis 1 Plantar fascial fibr omatosis (M72.2) Referral Organization [facility]) Referring Provider First Name Kate Referring Provider Last Name Anmol Referring Provider Speciality Podiatry Referred Provider TB, Physical Therap y Referred Provider Specialty Physical Med icine and Rehabilitation Referral Priority Routine Diagnosis 1 Mastoiditis (H70.90) Referral Organization [facility] Referring Provider First Name Rj Referring Provider Last Name Nhi Referring Provider Speciality Family Med icine Referred Provider Florecita Teague Referred Provider Specialty Otolaryngolo gy Referral Priority Routine Medications Medication SIG (Take, Route, Frequency, Duration) Notes Start Date End Date Status Levothyroxine Sodium 150 MCG TAKE 1 TABL ET BY MOUTH EVERY MORNING ON AN EMPTY STOMACH for 90 Active Acetaminophen-Codeine 300-30 MG 1 tablet as needed Orally every 6 hrs for 7 days 02/27/2024 Active buPROPion HCl ER (XL) 300 MG TAKE 1 TABL ET BY MOUTH EVERY MORNING for 90 Active Mirtazapine 30 MG TAKE 2 TABLET BY SHABBIR TH EVERY NIGHT AT BEDTIME Orally Once a day for 90 days Active Simvastatin 20 MG TAKE ONE TABLET BY M OUTH EVERY EVENING for 90 Active Lisinopril 10 MG TAKE 1 TABLET BY SHABBIR TH DAILY for 90 Active Imitrex 100 MG 1 tablet at least 2 hours between doses as needed Orally Twice a day 07/21/2024 Active Meloxicam 15 MG 1 tablet Orally Once a day for 30 days 03/12/2024 Active Topiramate 100 MG 1 tablet Orally Once a day for 90 days Active Topiramate 50 MG 1 tablet Orally Once a day- take with 100mg tablet for 90 days 06/22/2024 Active Social History Tobacco Use: Social History Observation Description Date Details (start date - stop date) Never Smoker NA - NA Alcohol Screen (Audit-C) Question Answer Notes Did you have a drink contain ing alcohol in the past year? Yes How often did you have 6 or more drinks on one occasion in the past year? Two to four times a month (2 points) How many drinks did you have on a typical day when you were drinking in the past year? 7 to 9 drinks (3 points) How often did you have a dri nk containing alcohol in the past year? Weekly (3 points) Points 8 Interpretation Positive Tobacco Control (Standard) Question Answer Notes Tobacco use: Nonsmoker AUDIT-C (Standard) Question Answer Notes Did you have a drink containing alcohol in the p ast year? No Points 0 Interpretation Negative Section Notes: Never Smoked Never Smoked Never Smoked Never Smoked Never Smoked Never Smoked Never Smoked Never Smoked Never Smoked Never Smoked Never Smoked Never Smoked Never Smoked Never Smoked Never Smoked Problems Problem Type SNOMED Code ICD Code Onset Dates Problem Status W/U Status Risk Notes Problem Ingrowing nail (091578366) Ingrowing nail (L60.0) Active confirmed Problem 299635793594577 Contracture, rig ht ankle (M24.571) Active confirmed Problem 58044236536187484 Plantar fascia l fibromatosis (M72.2) Active confirmed Problem Onychomycosis (877541825) Onychomycosis (B35.1) Active confirmed Problem Asthma (980087582) Asthma (J45.909) Active conf irmed Problem Anxiety (31710935) Anxiety (F41.9) Active confi rmed Problem Migraine (74533782) Migraine (G43.909) Active c onfirmed Problem Bronchitis (42616536) Bronchitis (J40) Active c onfirmed Problem Hypertriglyceridemia (112410991) Hypertriglyceridemia (E78.1) Active confirmed Problem Pain in right foot (898268678216381) Right foot pain (M79.671) Active confirmed Problem Well adult (201947780) Well adult (Z00.00) Active confirmed Problem Cervical disc diseas e (047100727) Cervical disc disease (M50.90) Active confirmed Problem Pain in left foot (315177662487399) Left foot pain (M79.672) Active confirmed Problem 31992886735925257 Plantar fascii tis of right foot (M72.2) Active confirmed Problem 02716117300223779 Plantar fascii tis of left foot (M72.2) Active confirmed Problem Plantar fascial fibromatosis (82703079) Plantar fascial fibromatosis of left foot (M72.2) Active confirmed Problem Disorder of lumbosacral intervertebral disc (064772315) Disc disorder of lumbosacral region (M51.9) Active confirmed Problem Myalgia (30234434) Myalgia (M79.10) Active conf irmed Problem 393559214 Equinus contract ure of right ankle (M24.571) Active confirmed Problem 301599725 Equinus contract ure of left ankle (M24.572) Active confirmed Problem Headache (63523443) Headache (R51.9) Active con firmed Vital Signs Heart Rate 78 /min 04/23/2024 Temperature 98 degrees Fahrenheit 04/23/2024 Blood pressure diastolic 84 mm Hg 07/21/2024 Oximetry 97 % 04/23/2024 Height 70.5 in 07/21/2024 Blood pressure systolic 130 mm Hg 07/21/2024 Weight 280.6 lbs 07/21/2024 BMI 39.69 kg/m2 07/21/2024 Encounters Encounter Location Date Provider Diagnosis [facility] [address] [place] [address] 03/18/2024 Rj Hoy Bronchitis J40 [facility] [address] [place] [address] 06/15/2024 Rj Hoy Headache R51.9 [facility]) [address] [place] [address] [place] [address] 12/26/2023 Kate Corea Plantar fascial fibromatosis M72.2 ; Calcaneal spur, right foot M77.31 ; Calcaneal spur, left foot M77.32 ; Contracture, left ankle M24.572 ; Contracture, right ankle M24.571 ; Right foot pain M79.671 and Left foot pain M79.672 [facility] ([facility]) [address] [place] [address] [place] [address] 01/23/2024 Kate Corea Plantar fascial fibromatosis M72.2 ; Corns and callosities L84 ; Calcaneal spur, right foot M77.31 and Calcaneal spur, left foot M77.32 [facility] ([facility]) [address] [place] [address] [place] [address] 03/12/2024 Kate Corea Plantar fasciitis, bilateral M72.2 ; Calcaneal spur, right foot M77.31 and Calcaneal spur, left foot M77.32 [facility] ([facility]OD[facility]) [address] [place] [address] [place] [address] 04/23/2024 Kate Corea Equinus contracture of right ankle M24.571 ; Equinus contracture of left ankle M24.572 ; Calcaneal spur, left foot M77.32 ; Calcaneal spur, right foot M77.31 and Plantar fasciitis, bilateral M72.2 [facility] [address] [place] [address] 06/17/2024 Rj Hoy Headache R51.9 [place] [address] [place] [address] 02/27/2024 Rj Hoy Acute bronchitis, unspecified organism J20.9 [facility] [address] [place] [address] 04/13/2024 Rj Hoy Well adult Z00.00 [facility] [address] [place] [address] 07/21/2024 Rj Hoy Migraine G43.909 [facility] [address] [place] [address] 06/16/2024 Rj Hoy [facility] [address] [place] [facility] [facility] [address] 06/17/2024 Rj Romanoy [facility] [address] [place] [place] [address] 06/22/2024 Rj Hoy Well adult Z00.00 [facility] [address] [place] [address] 06/24/2024 Rj Romanoy Migraine G43.909 [facility] [address] [place] [address] 07/01/2024 Rj Romanoy Mastoiditis H70.90 [facility]) [address] [place] [address] 01/23/2024 Ktae Corea [facility]) [address] [place] [address] 01/23/2024 Kate Corea [facility] [address] [place] [place] [address] 01/27/2024 Rj Romanoy Well adult Z00.00 [place] [address] [place] [address] 04/19/2024 Rj Romanoy [place] [address] [place] [address] 04/30/2024 Rj Hankins Assessments Encounter Date Diagnosis (ICD Code) Assessment Notes Treatment Notes Treatment Clinical Notes Section Notes 12/26/2023 Plantar fascial fibromatosis (ICD-10 - M72.2) Patient was seen and evaluated. Patient education was provided and all questions were answered to the patient's satisfaction.I recommended nonsurgical treatment with: NSAIDs, ice, shoe modification, and massageEmphasis was placed on Achilles tendon and calf stretching.Corticost eroid injection was offered. Will discuss the possibility of physical therapy at follow-up if she is not much better.Patient will follow-up in 4-6 weeks - no new x-rays needed at that time. 12/26/2023 Calcaneal spur, right foot (ICD-10 - M77.31) After verbal consent the skin was prepped using alcohol. An injection consisting of 1 mL lidocaine 1% plain and 1 mL betamethasone was injected directly into the plantar fascia medially. The site was dressed with a Band-Aid. The patient tolerated the injection well. 01/23/2024 Corns and callosities (ICD-10 - L84) Numerous intractable plantar keratoses were pared from the plantar heels bilaterally. This may help with her heel pain. 01/23/2024 Plantar fascial fibromatosis (ICD-10 - M72.2) The patient is a 58-year-old female who presents for reevaluation of bilateral plantar heel pain that has been present for 5 months. She states she has had no relief in symptoms with home stretching program, previous corticosteroid injections, and custom shoe inserts. I recommend adding physical therapy. If she does not respond to physical therapy I would definitely obtain an MRI to confirm diagnosis. She also requests additional corticosteroid injections in preparation for an upcoming trip to [place]. 03/12/2024 Calcaneal spur, right foot (ICD-10 - M77.31) 03/12/2024 Plantar fasciitis, bilateral (ICD-10 - M72.2) The patient is a pleasant 58-year-old female who presents for reevaluation of bilateral plantar fasciitis. The patient note significant improvement since last visit. She is happy with her progress. She was encouraged to continue aggressive home calf stretching program. RICE therapy and NSAIDs as needed. Follow-up in 2 months, sooner if any issues arise. No x-rays necessary at follow-up. The patient was advised that if she continues to improve and is happy with her pain level she can cancel the next appointment. 02/27/2024 Acute bronchitis, unspecified organism (ICD-10 - J20.9) Rest and drink more liquids, especially water. You may use a humidifier or vaporizer to help keep the drainage moist. Ryoe-zdm-ajwvpkp Nasal Saline may help the stuffy and runny nose. Use Ibuprofen and or Tylenol as needed for fever, chills, body aches or pain. Children 5 years old should not be given njts-fng-vvbjeuq cough and cold medications such as guaifenesin and dextromethorphan. If you're over age 5, you may try pkgr-pzq-bpkkpqz cold medications such as guaifenesin and dextromethorphan, or multi-symptom cold reliever such as Dayquil to help reduce the symptoms. Antibiotics have been prescribed. You should take these until completed and follow the directions. Antibiotics can sometimes cause upset stomach, and in rare cases, serious allergic reactions or serious gastrointestinal problems. If you start having severe abdominal pain, severe vomiting, or bloody diarrhea, you should be reevaluated by your physician or urgent care immediately. Follow up with your Primary Care Provider or return to clinic if symptoms do not improve within 3-5 days. If you develop severe symptoms such as shortness of breath, repeated vomiting, coughing up blood, or chest pain you should go to the emergency room or call 911 04/23/2024 Equinus contracture of right ankle (ICD-10 - M24.571) The patient is a pleasant 58-year-old female who presents for reevaluation of bilateral plantar fasciitis and equinus contracture.The patient states the previous corticosteroid injections provided 3 months of relief and have worn off. She has an upcoming trip and would like bilateral plantar fascial injections for pain relief.She was encouraged to continue her home stretching program. She was encouraged to consider changing her shoe inserts or getting a new pair of shoes. She will follow-up at her discretion. 04/23/2024 Equinus contracture of left ankle (ICD-10 - M24.572) 03/18/2024 Bronchitis (ICD-10 - J40) 04/13/2024 Well adult (ICD-10 - Z00.00) 06/15/2024 Headache (ICD-10 - R51.9) 06/17/2024 Headache (ICD-10 - R51.9) 07/21/2024 Migraine (ICD-10 - G43.909) 01/27/2024 Well adult (ICD-10 - Z00.00) 06/22/2024 Well adult (ICD-10 - Z00.00) 06/24/2024 Migraine (ICD-10 - G43.909) 07/01/2024 Mastoiditis (ICD-10 - H70.90) 04/23/2024 Calcaneal spur, left foot (ICD-10 - M77.32) After verbal consent the skin was prepped using alcohol. An injection consisting of 1 mL lidocaine 1% plain and 1 mL betamethasone was injected directly into the plantar fascia medially. The site was dressed with a Band-Aid. The patient tolerated the injection well. 03/12/2024 Calcaneal spur, left foot (ICD-10 - M77.32) 01/23/2024 Calcaneal spur, right foot (ICD-10 - M77.31) After verbal consent the skin was prepped using alcohol. An injection consisting of 1 mL lidocaine 1% plain and 1 mL betamethasone was injected directly into the plantar fascia medially. The site was dressed with a Band-Aid. The patient tolerated the injection well. 12/26/2023 Calcaneal spur, left foot (ICD-10 - M77.32) After verbal consent the skin was prepped using alcohol. An injection consisting of 1 mL lidocaine 1% plain and 1 mL betamethasone was injected directly into the plantar fascia medially. The site was dressed with a Band-Aid. The patient tolerated the injection well. 01/23/2024 Calcaneal spur, left foot (ICD-10 - M77.32) After verbal consent the skin was prepped using alcohol. An injection consisting of 1 mL lidocaine 1% plain and 1 mL betamethasone was injected directly into the plantar fascia medially. The site was dressed with a Band-Aid. The patient tolerated the injection well. 04/23/2024 Calcaneal spur, right foot (ICD-10 - M77.31) After verbal consent the skin was prepped using alcohol. An injection consisting of 1 mL lidocaine 1% plain and 1 mL betamethasone was injected directly into the plantar fascia medially. The site was dressed with a Band-Aid. The patient tolerated the injection well. 12/26/2023 Contracture, left ankle (ICD-10 - M24.572) 04/23/2024 Plantar fasciitis, bilateral (ICD-10 - M72.2) 12/26/2023 Contracture, right ankle (ICD-10 - M24.571) 12/26/2023 Right foot pain (ICD-10 - M79.671) 12/26/2023 Left foot pain (ICD-10 - M79.672) 06/15/2024 Other Take NSAIDs as needed for pain. Discussed avoiding headache triggers and improiving diet and sleep habits to prevent headaches. Plan Of Treatment Pending Test Test Name Order Date CMP (COMPLETE METABOLIC PANEL) HEMOGLOBIN A1C (GLYCO) 04/04/2023 HEMOGLOBIN A1C (GLYCO) 04/13/2024 IRON, TOTAL 04/04/2023 LIPID PANEL (CHOL/TRIG/HDL/LDL) 04/04/19 24 LIPID PANEL (CHOL/TRIG/HDL/LDL) 04/13/19 25 CBC WITH DIFF 04/13/2024 CBC WITH DIFF 04/04/2023 VITAMIN D, 25 LEVEL (TOTAL) 04/04/2023 XR Foot LT (3 views) * 12/26/2023 Insulin Level 04/04/2023 STOOL OCCULT BLOOD 04/04/2023 STOOL OCCULT BLOOD 04/13/2024 CBC AUTO DIFF 07/21/2024 CRP 07/21/2024 CULTURE SPUTUM 03/18/2024 SED RATE WESTERGREN 07/21/2024 SPUTUM GRAM STAIN 03/18/2024 MRI BRAIN WO CON 06/24/2024 THYROID PANEL (T4/TSH/FREE T3) THYROID PANEL (T4/TSH/FREE T3) CMP (COMP MET [place]) w/eGFR CKD-EPI 2024 Insurance Providers Payer Name Payer Address Payer Phone Subscriber Number Group Number Insured Name Patient Relationship to Insured Coverage Start Date Coverage End Date [employer] [address] [address] [place] [address] [id number] Lorraine Saleh Self - patient is the insured Medications Administered Medication Instructions Date of Administration Dosage Notes Betamethasone Acetate 04/19/2022 1 mL rig ht foot Betamethasone Acetate 04/19/2022 1 mL lef t foot Betamethasone Acetate 04/23/2024 1 mL Betamethasone Acetate 04/23/2024 1 mL Celestone 6mg/mL 12/26/2023 1 mL Celestone 6mg/mL 12/26/2023 1 mL Celestone 6mg/mL 01/23/2024 1 mL Celestone 6mg/mL 01/23/2024 1 mL Ketorolac Tromethamine 06/15/2024 60 mg Ketorolac Tromethamine 06/17/2024 60 mg Promethazine 25mg 06/15/2024 25 mg Promethazine 25mg 06/17/2024 25 mg Triamcinolone 40 mg/ml 06/15/2024 80 mg Triamcinolone 40 mg/ml 06/17/2024 80 mg Medical (General) History Medical History History ICD Code Plantar fascial fibromatosis of left kaylin t M72.2 Ingrowing nail L60.0 Onychomycosis B35.1 Cellulitis of left toe L03.032 Cutaneous abscess of left foot L02.612 type II diabetes Myalgia M79.10 Hyperlipidemia E78.5 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
[2024-07-21 12:28] LABS: Basophils Absolute Auto 0.1 10^3/uL (0.0-0.1); Basophils Percent Auto 0.8 % (0.2-2.0); Eosinophils Absolute Auto 0.1 10^3/uL (0.0-0.7); Eosinophils Percent Auto 1.1 % (0.9-7.0); Hematocrit 43.8 % (36.0-48.0); Hemoglobin 14.3 g/dL (12.0-16.0); Immature Granulocytes Abs Auto 0.06 10^3/uL (0.00-0.03); Immature Granulocytes Pct Auto 0.7 % (0.0-0.5); Lymphocytes Absolute Auto 2.6 10^3/uL (1.2-3.8); Lymphocytes Percent Auto 27.8 % (20.5-60.0); Mean Corpuscular HGB Conc 32.6 g/dL (29.9-35.2); Mean Corpuscular Hemoglobin 27.7 pg (26.7-34.0); Mean Corpuscular Volume 84.7 fL (81.0-99.0); Mean Platelet Volume 9.8 fL (9.5-13.5); Monocytes Absolute Auto 0.5 10^3/uL (0.3-0.8); Neutrophils Absolute Auto 5.9 10^3/uL (1.4-6.5); Neutrophils Percent Auto 64.6 % (43.0-75.0); Platelet Count 251 10^3/uL (150-450); Red Blood Count 5.17 10^6/uL (4.20-5.40); Red Cell Distribution Width 13.7 % (11.0-15.0); White Blood Count 9.2 10^3/uL (4.0-11.0)
[2024-07-21 12:58] LABS: Erythrocyte Sedimentation Rate 26 mm/hr (<=30)
[2024-07-21 13:33] LABS: C Reactive Protein 1.05 mg/dL (<=0.50)
== END 2024-07-21 11:58 | disposition home or self-care (01) ==
LOC: LAB 12:02
PROVIDERS: PCP Family Medicine; Visit Provider Family Medicine
DX: G43.909 Migraine, unspecified, not intractable, without status migrainosus (principal)
CPT/HCPCS: 36415; 85025; 85652; 86140